=== PATIENT | male | born 1960 | race Caucasian/White ===

== ENCOUNTER 2020-11-19 09:26 | Outpatient (REF) | payer OTHER, SELFPAY ==
--- NOTE | ~2020-11-19 | XR_ITS ---
EXAMINATION: XR ABDOMEN KUB CLINICAL INDICATION: Constipation COMPARISON: None TECHNIQUE: AP view of the abdomen. FINDINGS: There is stool seen throughout the colon. There are no dilated loops of bowel to suggest obstruction. There is no evidence of free air. No calcifications are seen. Bony structures are unremarkable. XR/XR KUB IMPRESSION: Stool throughout the colon suggestive of mild constipation. No evidence of obstruction.
== END 2020-11-19 09:27 | disposition home or self-care (01) ==
LOC: HO.LAB 09:26
PROVIDERS: PCP Internal Medicine; Visit Provider Internal Medicine
DX: K59.03 Drug induced constipation (principal)
CPT/HCPCS: 74018

== ENCOUNTER → 2021-11-24 13:20 | Outpatient (BNVA) | payer OTHER, SELFPAY | PROVIDERS: PCP Internal Medicine; Referring Provider Internal Medicine; Visit Provider Nurse Practitioner Family | DX: Z13.89 Encounter for screening for other disorder (principal) ==

== ENCOUNTER → 2021-11-25 12:41 | Outpatient (BNVA) | payer OTHER, SELFPAY | PROVIDERS: PCP Internal Medicine; Referring Provider Internal Medicine; Visit Provider Nurse Practitioner Family | DX: R06.83 Snoring (principal); R40.0 Somnolence | CPT/HCPCS: 99202 ==

== ENCOUNTER → 2022-01-04 12:37 | Outpatient (REF) | payer OTHER, SELFPAY | LOC: HO.SL 12:37 | PROVIDERS: Visit Provider Nurse Practitioner Family | DX: R06.81 Apnea, not elsewhere classified (principal); R06.83 Snoring; R40.0 Somnolence | CPT/HCPCS: 95806 ==

== ENCOUNTER → 2022-01-28 08:17 | Outpatient (BNVA) | payer OTHER, SELFPAY | PROVIDERS: PCP Internal Medicine; Visit Provider Nurse Practitioner Family | DX: G47.33 Obstructive sleep apnea (adult) (pediatric) (principal); R40.0 Somnolence | CPT/HCPCS: 99212 ==

== ENCOUNTER → 2022-07-01 19:32 | Outpatient (REF) | payer OTHER, SELFPAY | LOC: HO.SL 19:32 | PROVIDERS: Visit Provider Nurse Practitioner Family | DX: G47.33 Obstructive sleep apnea (adult) (pediatric) (principal); Z79.899 Other long term (current) drug therapy | CPT/HCPCS: 95811 ==

== ENCOUNTER → 2022-08-18 07:56 | Outpatient (BNVA) | payer OTHER, SELFPAY | PROVIDERS: Visit Provider Nurse Practitioner Family | DX: G47.33 Obstructive sleep apnea (adult) (pediatric) (principal); R40.0 Somnolence | CPT/HCPCS: 99212 ==

== ENCOUNTER → 2022-12-13 07:40 | Outpatient (BNVA) | payer OTHER, SELFPAY | PROVIDERS: Visit Provider Nurse Practitioner Family | DX: G47.33 Obstructive sleep apnea (adult) (pediatric) (principal); R40.0 Somnolence | CPT/HCPCS: 99212 ==

== ENCOUNTER 2022-12-15 08:42 | Outpatient (REF) | payer OTHER, SELFPAY ==
--- NOTE | ~2022-12-15 | CT_ITS ---
EXAMINATION: CT ABDOMEN AND PELVIS WITH CONTRAST CLINICAL INFORMATION: Left lower quadrant abdominal pain. COMPARISON: None available. TECHNIQUE: Multidetector volumetric images were obtained from the superior aspect of the liver through the pubic symphysis following administration 85 mL of Omnipaque 350 intravenous contrast. Sagittal and coronal reformatted images were obtained on the technologist's workstation. Oral contrast: No This CT examination was performed using dose optimization techniques as appropriate, variously including the following: *Automated exposure control *Adjustment of mA and/or kV according to patient size (this includes techniques or standardized protocols for targeted exams where dose is matched to indication/reason for exam; i.e. extremities or head) *Use of iterative reconstruction technique DLP: 585 mGy-cm FINDINGS: LUNG BASES: Mild scarring is present at the lung bases along with a calcified right lower lobe granuloma. No consolidations, suspicious lung masses. The heart size is normal. LIVER, GALLBLADDER, AND BILIARY TREE: The liver is normal in size, shape, and attenuation. Multiple small benign-appearing hepatic cysts are present. No worrisome solid focal hepatic lesion or biliary ductal dilatation is present. The gallbladder is unremarkable with no evidence of radiopaque gallstones, gallbladder wall thickening, or obvious pericholecystic inflammatory changes. PANCREAS: There is fatty infiltration of the pancreas. No pancreatic masses, calcifications or ductal dilatation is seen. SPLEEN: Unremarkable. ADRENAL GLANDS: Unremarkable. KIDNEYS AND URETERS: The kidneys are normal in size, shape, and attenuation. There are benign bilateral Bosniak class I renal cysts present which need no additional imaging or follow-up. No hydronephrosis, hydroureter, or calculi seen. No perinephric stranding. BLADDER: Unremarkable. GASTROINTESTINAL TRACT: Thickening of the gastric fundus and body most likely secondary to underdistention The small and large bowel are unremarkable. The appendix is unremarkable. ABDOMINAL WALL: Small left-sided paraumbilical hernia seen containing predominantly fat with a tiny bit of wall of a single portion of the transverse colon. LYMPH NODES: No retroperitoneal lymphadenopathy. VASCULAR: Calcific plaque seen in the aorta and iliac vessels without aneurysm. PELVIC VISCERA: The prostate and seminal vesicles are unremarkable. No free pelvic fluid is seen. OSSEOUS STRUCTURES: Unremarkable. CT/CT abdomen pelvis w IV con IMPRESSION: 1. A cause for the patient's left lower quadrant pain has not been found. 2. Incidental note made of benign hepatic cysts, fatty infiltration of the pancreas, small left paraumbilical hernia and other findings described above. Fleischner guidelines were followed.
[2022-12-15] MEDS: Barium Sulfate Oral (Vanilla) 450 ML ORAL.SUSP 900 ML PO (12:39)
[2022-12-15] MEDS: iohexoL 350 MG/ML 100 ML INFUS..BTL IV (12:40)
[2022-12-15 14:42] LABS: Creatinine POC 0.6 mg/dL (0.5-1.4); GFR POC 60
== END 2022-12-15 08:43 | disposition home or self-care (01) ==
LOC: HO.CT 08:42
PROVIDERS: Visit Provider Registered Nurse
DX: Z98.890 Other specified postprocedural states (principal); Z87.19 Personal history of other diseases of the digestive system
CPT/HCPCS: 74177; 82565; Q9967

== ENCOUNTER → 2023-02-10 09:09 | Outpatient (BNVA) | payer OTHER, SELFPAY | PROVIDERS: PCP Registered Nurse; Visit Provider Surgery Vascular Surgery | DX: I83.11 Varicose veins of right lower extremity with inflammation (principal); G62.9 Polyneuropathy, unspecified | CPT/HCPCS: 99212 ==

== ENCOUNTER 2023-02-15 08:12 | Outpatient (REF) | payer OTHER, SELFPAY ==
--- NOTE | ~2023-02-15 | US_ITS ---
EXAMINATION: US LOWER EXTREMITY VENOUS (REFLUX EXAM), BILATERAL CLINICAL INDICATION: Chronic venous insufficiency with lower extremity varicose veins, pain and inflammation COMPARISON: None. TECHNIQUE: Color flow triplex imaging and compression Doppler was performed to evaluate both the deep and the superficial systems bilaterally. To evaluate the superficial system, the examination was performed in the upright position. Color-flow Doppler ultrasound and compression ultrasound were utilized. In addition, maneuvers were utilized to demonstrate reflux. FINDINGS: 1. DEEP VENOUS ULTRASOUND OF THE RIGHT LOWER EXTREMITY: Common Femoral Vein: Compressible, normal respiratory variation and augmented flow. Femoral Vein: Compressible, normal color flow and augmentation. Popliteal Vein: Compressible, normal augmentation. Deep Reflux: There is no evidence of reflux in the deep system in either the common femoral vein or the popliteal vein. There is no evidence of a Garner's cyst. 2. SUPERFICIAL ULTRASOUND WITH DOPPLER OF RIGHT LOWER EXTREMITY: GREAT SAPHENOUS VEIN: Saphenofemoral Junction: 1.0 cm; Reflux: 0 ms Proximal Thigh: 0.8 cm; Reflux: 0 ms Mid Thigh: 0.5 cm; Reflux: 0 ms Above Knee: 0.3 cm; Reflux: 0 ms At Knee: 0.2 cm; Reflux: 0 ms Below Knee: 0.3 cm; Reflux: 0 ms Mid Calf: 0.3 cm; Reflux: 0 ms Ankle: 0.2 cm; Reflux: 0 ms DUPLICATED MEDIAL GREAT SAPHENOUS VEIN: Diameter: None Imaged Reflux: NA DUPLICATED LATERAL GREAT SAPHENOUS VEIN: Diameter: 0.4 cm Reflux: None SMALL SAPHENOUS VEIN: Proximal: 0.3 cm; Reflux: 0 ms Distal: 0.3 cm; Reflux: 0 ms VEIN OF GIACOMINI: None Imaged. PERFORATORS: Location: Distal calf and midcalf Size: 0.3 cm Reflux: None VARICOSITIES: Location: Proximal thigh Size: 0.4 cm Reflux: None 3. DEEP VENOUS ULTRASOUND OF THE LEFT LOWER EXTREMITY: Common Femoral Vein: Compressible, normal respiratory variation and augmented flow. Femoral Vein: Compressible, normal color flow and augmentation. Popliteal Vein: Compressible, normal augmentation. Deep Reflux: There is no evidence of reflux in the deep system in either the common femoral vein or the popliteal vein. There is no evidence of a Garner's cyst. 4. SUPERFICIAL ULTRASOUND WITH DOPPLER OF LEFT LOWER EXTREMITY: GREAT SAPHENOUS VEIN: Saphenofemoral Junction: 0.6 cm; Reflux: 0 ms Proximal Thigh: 0.8 cm; Reflux: 0 ms Mid Thigh: 0.3 cm; Reflux: 0 ms Above Knee: 0.3 cm; Reflux: 0 ms At Knee: 0.3 cm; Reflux: 0 ms Below Knee: 0.2 cm; Reflux: 1016 ms Mid Calf: 0.2 cm; Reflux: 0 ms Ankle: 0.1 cm; Reflux: 0 ms DUPLICATED MEDIAL GREAT SAPHENOUS VEIN: Diameter: None Imaged Reflux: NA DUPLICATED LATERAL GREAT SAPHENOUS VEIN: Diameter: 0.3 cm Reflux: None SMALL SAPHENOUS VEIN: Proximal: 0.2 cm; Reflux: 0 ms Distal: 0.2 cm; Reflux: 0 ms VEIN OF GIACOMINI: None Imaged. PERFORATORS: Location: None significant Size: NA Reflux: NA VARICOSITIES: Location: Proximal thigh Size: 0.3 cm Reflux: None US/US venous duplex LE BI IMPRESSION: Right: No significant reflux in the great saphenous vein or small saphenous vein. Varicose vein in the proximal thigh without significant reflux Left: Single focal area of segmental reflux in the great saphenous vein in the proximal calf. No significant reflux in the remaining portions of the great saphenous vein. No significant reflux in the small saphenous vein. Focal varicosities seen in the proximal thigh without reflux
== END 2023-02-15 08:13 | disposition home or self-care (01) ==
LOC: HO.US 08:12
PROVIDERS: PCP Registered Nurse; Visit Provider Surgery Vascular Surgery
DX: I83.11 Varicose veins of right lower extremity with inflammation (principal)
CPT/HCPCS: 93970

== ENCOUNTER → 2023-02-16 08:39 | Outpatient (BNVA) | payer OTHER, SELFPAY | PROVIDERS: PCP Registered Nurse; Visit Provider Nurse Practitioner Family | DX: G47.33 Obstructive sleep apnea (adult) (pediatric) (principal); G47.31 Primary central sleep apnea; R40.0 Somnolence | CPT/HCPCS: 99212 ==

== ENCOUNTER → 2023-03-14 09:43 | Outpatient (BNVA) | payer OTHER, SELFPAY | PROVIDERS: PCP Registered Nurse; Visit Provider Internal Medicine | DX: J44.9 Chronic obstructive pulmonary disease, unspecified (principal); G47.33 Obstructive sleep apnea (adult) (pediatric); R06.09 Other forms of dyspnea | CPT/HCPCS: 99202 ==

== ENCOUNTER 2023-03-14 10:33 | Outpatient (REF) | payer OTHER, SELFPAY ==
--- NOTE | ~2023-03-14 | XR_ITS ---
EXAMINATION: XR CHEST CLINICAL INFORMATION: Dyspnea COMPARISON: Previous CT of the abdomen and pelvis December 2022 TECHNIQUE: 2 views of the chest were obtained. FINDINGS: The cardiac and mediastinal contours are normal. There is question of a 4 mm dense nodule at the right lung base. No corresponding abnormality is seen on lung windows from abdominal and pelvic CT December 2022. The lungs are otherwise clear. No x-ray evidence of interstitial lung disease. No pleural effusion or pneumothorax. Mild degenerative changes of the spine. XR/XR chest 2V IMPRESSION: Question 4 mm right base pulmonary nodule. Otherwise unremarkable exam.
== END 2023-03-14 10:34 | disposition home or self-care (01) ==
LOC: HO.XRAY 10:33
PROVIDERS: PCP Registered Nurse; Visit Provider Internal Medicine
DX: J44.9 Chronic obstructive pulmonary disease, unspecified (principal); R06.09 Other forms of dyspnea; G47.33 Obstructive sleep apnea (adult) (pediatric)
CPT/HCPCS: 71046

== ENCOUNTER → 2023-03-15 08:58 | Outpatient (BNVA) | payer OTHER, SELFPAY | PROVIDERS: PCP Registered Nurse; Visit Provider Surgery Vascular Surgery | DX: M79.89 Other specified soft tissue disorders (principal) | CPT/HCPCS: 99212 ==

== ENCOUNTER 2023-05-11 10:42 | Outpatient (AMB) | payer MEDICARE, SELFPAY ==
--- NOTE | 2023-05-11 10:45 | A.OFFVIS_ITS ---
Intake Vital Signs 05/11/23 10:47 Height 5 ft 8 in Weight 224 lb 13.944 oz BMI 34.2 BP 122/68 Blood Pressure Location Lt brachial Position Sitting Pulse 69 Pulse Source Pulse Oximeter Pulse Oximetry (%) 95 Oxygen Delivery Method Room Air Intake Visit Reasons: copd Sales Service Professional Required: No Allergies ibuprofen [IBUPROFEN] Allergy (Unknown, Verified 05/11/23 10:57) GI UPSET morphine [MORPHINE] Allergy (Unknown, Verified 05/11/23 10:57) NAUSEA & VOMITING tramadol [TRAMADOL] Allergy (Unknown, Verified 05/11/23 10:57) SEIZURES Medication List - Last Reconciled 05/11/23 by Christiano Velez MD albuterol sulfate 90 mcg/actuation 0 mcg inhalation allopurinol 300 mg PO DAILY amitriptyline 5 - 10 mg PO QPM PRN amoxicillin-pot clavulanate 875-125 mg 1 tab PO BID atorvastatin 40 mg PO BEDTIME fluticasone propion-salmeterol 250-50 mcg/dose (Wixela Inhub) 1 inh inhalation BID 30 days lisinopril-hydrochlorothiazide 10-12.5 mg 1 tab PO DAILY methimazole 5 mg PO DAILY umeclidinium 62.5 mcg/actuation (Incruse Ellipta) 1 inh inhalation QAM 30 days Ventolin HFA 90 mcg/actuation (albuterol sulfate) 2 puffs inhalation Q4-6H PRN 30 days NS verapamil ER 240 mg PO DAILY Do you need a note to return to daycare/school/sports/work: No HPI copd HPI Details THIS 62 YEARS OLD GENTLEMAN IS HERE FOR FOLLOW-UP. BREATHING PADGETT DOING VERY WELL AND HAS REMAINED STABLE. HE HAS ONLY OCCASIONAL COUGH, NO ATTACKS OF WHEEZING. GETS SHORT OF BREATH ON WALKING UP HILL OR CLIMBING STAIRS. HE DOES NOT WALK FAST BECAUSE OF HIS CHRONIC BACK PAIN. HE CLAIMS THAT THE CURRENT REGIMEN INCLUDING INCRUSE ELLIPTA, WIXELA, AND VENTOLIN RESCUE INHALER OR CONTROLLING HIS RESPIRATORY STATUS. , HE IS NONSMOKER , BUT TO WAIT UPSET MARIJUANA FOR RELIEF OF HIS BACK PAIN. [facility] Medical History COPD (chronic obstructive pulmonary disease) Dyspnea on exertion Surgical History H/O hernia repair Family History Mother No problems noted. Father Heart attack Social History Alcohol intake: current Alcohol intake frequency: holidays/special occasions only Patient Tobacco Use Status: Never used Tobacco Substance Use Type: Marijuana Review of Systems Const All systems reviewed & are unremarkable except as noted in HPI and below Eyes Reports no additional complaints ENT Reports no additional complaints Card Denies chest pain, Reports leg edema (Mild, on standing too long) and Reports dyspnea on exertion Resp Reports as per HPI and Reports dyspnea on exertion GI Reports no additional complaints Reports no additional complaints Musc Reports abnormal gait (He has mild unstable gait off and on and uses a walking stick ), Reports back pain, Reports radiating pain into limb and Reports stiffness Skin/Breast Reports system reviewed and no additional complaints, except as documented Neuro Reports abnormal gait (He has mild unstable gait off and on and uses a walking stick ) Psych Reports no additional complaints Endo Reports other (Thyroid dysfunction) Nate/Lymph Reports no additional complaints Aller/Immun Reports no additional complaints Physical Exam Vital Signs: Last Vital Signs Pulse 69 05/11/23 10:47 BP 122/68 05/11/23 10:47 Pulse Ox 95 05/11/23 10:47 Oxygen Delivery Method Room Air 05/11/23 10:47 BMI result Body Mass Index 34.2 Const General: healthy appearing (Except for being overweight), comfortable, no acute distress, alert and awake Orientation/consciousness: patient oriented x3 HEENT Head: Yes normal to inspection General nose exam: No nasal polyps present and No nasal discharge present Face and sinus: Yes sinuses nontender Mouth: oropharynx abnormals (Narrow and crowded, Mallampati class 3) Throat: Yes posterior oropharynx normal Eyes General: appearance normal, both eyes and all related structures Neck Neck: Yes normal visual inspection, Yes no lymphadenopathy, Yes trachea midline, Yes no JVD and Yes other (Neck circumference 17 in) Thyroid: Thyroid normal Chest Chest palpation & inspection: normal inspection of the chest, normal palpation of entire chest wall and no tenderness Resp Other: Percussion note is resonant, breath sounds are very distant with prolonged expiratory phase. No audible wheezes or crepitations. Cardio Palpation: normal PMI Rate: regular rate Rhythm: regular rhythm Heart sounds: no gallops and no murmurs GI Palpation (GI): Soft to palpation, nontender, No hepatosplenomegaly present and no masses Auscultation: normal bowel sounds Back/Spine/Pelvis Thoracic/Lumbar Spine: thoracic and lumbar spine normal to inspection and thoraco-lumbar ROM limited Skin General skin exam: no rashes or lesions noted Neuro General: patient oriented x3, No gait normal (Has mild impairment of the gait and uses a walking stick) and no focal motor deficits Cranial nerves: Yes CN's II-XII intact bilaterally Extrem General: Yes normal to inspection, Yes no clubbing, cyanosis or edema, Yes no calf tenderness and Yes edema (Chronic stasis edema currently controlled with elastic stockings) Psych Appearance: grossly normal and well kempt Speech and movement: Normal speech and movement present Assessment & Plan Assessment & Plan (1) COPD (chronic obstructive pulmonary disease): Comment: This gentleman has features of chronic obstructive pulmonary disease. He denies history. Of smoking cigarettes Is working in the [employer] business for adult life may have resulted , in some lung injury. Chest Xray , unremarkable except for 4 mm tiny nodule in right lower lobe.( in a nonsmoker it is not significant ) * he has had no pulmonary function test yet. [place] : Continue Incruse Ellipta 1 inhalation daily. Wixela 250-50 1 inhalation b.i.d.. Ventolin HFA 2 puffs Q 4-6 hours p.r.n.. * does not have to use the nebulizer. Scheduled for pulmonary function test. Code(s): J44.9 - Chronic obstructive pulmonary disease, unspecified (2) Dyspnea on exertion: Comment: Dyspnea on exertion is secondary to chronic obstructive pulmonary disease, and general deconditioning. He claims that since he is on the combination of Wixella and INCRUSE ELLIPTA the dyspnea on exertion is definitely much less. Code(s): R06.09 - Other forms of dyspnea (3) SANTOSH (obstructive sleep apnea): Comment: Severe degree of SANTOSH. The AHI was 52/hr, oxygen laura was 76% Has been started on CPAP therapy, he is being followed by sleep Medicine Services. I encouraged him to use CPAP regularly. And also encouraged him to lose weight. Code(s): G47.33 - Obstructive sleep apnea (adult) (pediatric) Coding Level of Care Code Est Pt Level 3 (46854) Diagnoses COPD (chronic obstructive pulmonary disease) J44.9 Dyspnea on exertion R06.09 SANTOSH (obstructive sleep apnea) G47.33
[2023-05-11 10:47] VITALS: BP 122/68; PULSE 69; O2SAT 95; BMI 34.2
== END 2023-05-11 11:08 | disposition home or self-care (01) ==
PROVIDERS: PCP Registered Nurse; Visit Provider Internal Medicine
DX: J44.9 Chronic obstructive pulmonary disease, unspecified (principal); R06.09 Other forms of dyspnea; G47.33 Obstructive sleep apnea (adult) (pediatric)
CPT/HCPCS: 99213

== ENCOUNTER → 2023-05-11 10:42 | Outpatient (BNVA) | payer MEDICARE, SELFPAY | PROVIDERS: PCP Registered Nurse; Visit Provider Internal Medicine | DX: J44.9 Chronic obstructive pulmonary disease, unspecified (principal); R06.09 Other forms of dyspnea; G47.33 Obstructive sleep apnea (adult) (pediatric) | CPT/HCPCS: 99212 ==

== ENCOUNTER 2023-09-05 10:05 | Outpatient (REF) | payer MEDICARE, SELFPAY ==
[2023-09-05 11:23] LABS: MANUAL DIFF FLAG NO
[2023-09-05 11:39] LABS: Basophils Absolute Auto 0.1 X10*3/uL (0.0-0.2); Basophils Percent Auto 0.6 % (0-2); Eosinophils Absolute Auto 0.4 X10*3/uL (0.0-0.4); Eosinophils Percent Auto 4.1 % (0-4); Hematocrit 38.6 % (42.0-52.0); Hemoglobin 12.9 g/dl (14.0-18.0); Imm Gran Abs Auto 0.04 X10*3/uL (0.00-0.03); Imm Gran Pct Auto 0.4 % (0.0-0.4); Lymphocytes Absolute Auto 2.1 X10*3/uL (1.2-4.9); Mean Corpuscular HGB Conc 33.4 g/dl (31.0-36.0); Mean Corpuscular Hemoglobin 31.5 pg (27.0-33.0); Mean Corpuscular Volume 94.1 fL (80.0-98.0); Mean Platelet Volume 9.8 fL (9.4-12.4); Monocytes Absolute Auto 1.1 X10*3/uL (0.1-1.2); Neutrophils Absolute Auto 5.7 x10*3/uL (2.0-8.3); Neutrophils Percent Auto 60.9 % (45-73); Platelet Count 327 X10*3/uL (160-400); Red Cell Distribution Width 14.5 % (11.0-16.0); White Blood Count 9.3 X10*3/uL (4.8-10.8)
[2023-09-05 12:03] LABS: C Reactive Protein 0.94 mg/dL (< or = 0.50)
[2023-09-05 12:11] LABS: TSH reflex Free T4 6.21 uIU/mL (0.32-4.0)
[2023-09-05 12:42] LABS: Erythrocyte Sedimentation Rate 14 MM/HR (0-15)
[2023-09-05 12:51] LABS: Free T4 (Free Thyroxine) 0.87 ng/dL (0.71-1.85)
[2023-09-06 21:43] LABS: Prot Elec - Albumin 4.2 g/dL (3.8-4.8); Prot Elec - Alpha1 0.3 g/dL (0.2-0.3); Prot Elec - Alpha2 0.6 g/dL (0.5-0.9); Prot Elec - Beta 1 0.5 g/dL (0.4-0.6); Prot Elec - Beta 2 0.4 g/dL (0.2-0.5); Prot Elec - Gamma 1.5 g/dL (0.8-1.7); Prot Elec - Total Protein 7.5 g/dL (6.1-8.1)
[2023-09-07 09:33] LABS: Anti Nuclear Antibody Screen NEGATIVE (NEGATIVE)
== END 2023-09-05 10:06 | disposition home or self-care (01) ==
LOC: HO.HHCL 10:05
PROVIDERS: Visit Provider Registered Nurse
DX: G62.9 Polyneuropathy, unspecified (principal)
CPT/HCPCS: 36415; 84165; 84439; 84443; 85025; 85652; 86038; 86140

== ENCOUNTER 2023-09-21 10:37 | Outpatient (REF) | payer MEDICARE, SELFPAY ==
--- NOTE | ~2023-09-21 | XR_ITS ---
EXAMINATION: XR FOOT, BILATERAL CLINICAL INFORMATION: Bilateral foot pain. Hammertoe ulcer 2nd digit. COMPARISON: Right foot radiographs 03/27/2020. TECHNIQUE: 3 views of each foot. 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 Possible shallow ulcer dorsal to the 2nd PIP joint with no underlying cortical erosion. No acute osseous abnormality. Left Foot: Hallux valgus with moderate 1st MTP joint and hallux sesamoid osteoarthritis. No acute osseous abnormality. XR/XR foot RT min 3V IMPRESSION: RIGHT FOOT: Possible shallow ulcer dorsal to the 2nd PIP joint. No evidence of osteomyelitis. 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 LEFT FOOT: Hallux valgus with moderate 1st MTP joint and hallux sesamoid osteoarthritis.
--- NOTE | ~2023-09-21 | XR_ITS ---
EXAMINATION: XR FOOT, BILATERAL CLINICAL INFORMATION: Bilateral foot pain. Hammertoe ulcer 2nd digit. COMPARISON: Right foot radiographs 03/27/2020. TECHNIQUE: 3 views of each foot. 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 Possible shallow ulcer dorsal to the 2nd PIP joint with no underlying cortical erosion. No acute osseous abnormality. Left Foot: Hallux valgus with moderate 1st MTP joint and hallux sesamoid osteoarthritis. No acute osseous abnormality. XR/XR foot LT min 3V IMPRESSION: RIGHT FOOT: Possible shallow ulcer dorsal to the 2nd PIP joint. No evidence of osteomyelitis. 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 LEFT FOOT: Hallux valgus with moderate 1st MTP joint and hallux sesamoid osteoarthritis.
== END 2023-09-21 10:38 | disposition home or self-care (01) ==
LOC: HO.HHCX 10:37
PROVIDERS: Visit Provider Registered Nurse
DX: G62.9 Polyneuropathy, unspecified (principal); M20.41 Other hammer toe(s) (acquired), right foot; M20.42 Other hammer toe(s) (acquired), left foot
CPT/HCPCS: 73630

== ENCOUNTER 2023-09-26 10:05 | Outpatient (AMB) | payer MEDICARE, SELFPAY ==
[2023-09-26 10:13] VITALS: BP 110/70; PULSE 76; O2SAT 96; BMI 33.4
--- NOTE | 2023-09-26 10:13 | MHC.OFFVIS ---
Intake Vital Signs 09/26/23 10:13 Height 5 ft 8 in Weight 220 lb BMI 33.4 BP 110/70 Blood Pressure Location Lt brachial Position Sitting Pulse 76 Pulse Source Pulse Oximeter Pulse Oximetry (%) 96 Oxygen Delivery Method Room Air Intake Visit Reasons: copd Intake Note: pt is here for follow up and states he gave back the cpap, and states he does not sleep well, Family Services Coordinator Required: No Allergies ibuprofen [IBUPROFEN] Allergy (Unknown, Verified 09/26/23 10:43) GI UPSET morphine [MORPHINE] Allergy (Unknown, Verified 09/26/23 10:43) NAUSEA & VOMITING tramadol [TRAMADOL] Allergy (Unknown, Verified 09/26/23 10:43) SEIZURES Medication List - Last Reconciled 09/26/23 by Christiano Velez MD albuterol sulfate mg inhalation Q4H PRN alpha lipoic acid 600 mg PO DAILY atorvastatin 40 mg PO BEDTIME fluticasone propion-salmeterol 250-50 mcg/dose (Advair Diskus) 1 ea inhalation BID fluticasone propionate 50 mcg/actuation sprays intranasal lisinopril-hydrochlorothiazide 10-12.5 mg 1 tab PO DAILY methimazole 5 mg PO DAILY umeclidinium 62.5 mcg/actuation (Incruse Ellipta) 1 inh inhalation QAM Ventolin HFA 90 mcg/actuation (albuterol sulfate) 2 puffs inhalation Q4-6H PRN NS verapamil ER 240 mg PO DAILY HPI copd HPI Details 63 YEARS OLD GENTLEMAN, MODERATELY OBESE,, HAS MODERATE DEGREE OF COPD, WHICH IS WELL CONTROLLED WITH THE CURRENT INHALERS. HE HAS ONLY MILD INTERMITTENT COUGH, . DENIES ANY WHEEZING ATTACKS SHORTNESS OF BREATH ON EXERTION IS ONLY MILD, BECAUSE HE DOES NOT WALK FAST, OR CLIMB STAIRS. HE HAS OBSTRUCTIVE SLEEP APNEA WHICH WAS QUITE SEVERE AND HE REQUIRED TO CPAP TITRATION IN THE SLEEP LAB. HE WAS STARTED ON A BIPAP, PER RESULTS OF THE CPAP TITRATION. HE TRIED FOR HIS SHORT. AND THEN GAVE THE BIPAP DEVICE BACK TO THE DME SUPPLIER HE WAS BEING FOLLOWED BY THE SLEEP MEDICINE SERVICES. HE CLAIMS THAT HE JUST CANNOT HAVE THE MASK ON HIS FACE, HE FEELS THE PRESSURE IS TOO MUCH. NOW WITHOUT THE MASK HE IS SLEEPING , 2 HOURS AT A TIME, BUT DOES SLEEP ABOUT 6 HOURS, IN INTERRUPTED SEGMENTS. HE DENIES DAYTIME SLEEPINESS. THIS GENTLEMAN HAS REGRESSION OF THE LOWER JAW, HAS A PERMANENT DEFECT WHICH SEEMS TO BE THE MAIN CAUSE OF HIS SLEEP APNEA . [facility] Medical History Dyspnea on exertion COPD (chronic obstructive pulmonary disease) Surgical History H/O hernia repair Family History Mother No problems noted. Father Heart attack Social History Alcohol intake: current Alcohol intake frequency: holidays/special occasions only Patient Tobacco Use Status: Never used Tobacco Substance Use Type: Marijuana Review of Systems Const All systems reviewed & are unremarkable except as noted in HPI and below Eyes Reports no additional complaints ENT Reports no additional complaints Card Denies chest pain, Reports leg edema (Mild, on standing too long) and Reports dyspnea on exertion Resp Reports as per HPI and Reports dyspnea on exertion GI Reports no additional complaints Reports no additional complaints Musc Reports abnormal gait (He has mild unstable gait off and on and uses a walking stick ), Reports back pain, Reports radiating pain into limb and Reports stiffness Skin/Breast Reports system reviewed and no additional complaints, except as documented Neuro Reports abnormal gait (He has mild unstable gait off and on and uses a walking stick ) Psych Reports no additional complaints Endo Reports other (Thyroid dysfunction) Nate/Lymph Reports no additional complaints Aller/Immun Reports no additional complaints Physical Exam Vital Signs: Last Vital Signs Pulse 76 09/26/23 10:13 BP 110/70 09/26/23 10:13 Pulse Ox 96 09/26/23 10:13 Oxygen Delivery Method Room Air 09/26/23 10:13 BMI result Body Mass Index 33.4 Const General: healthy appearing (Except for being overweight), comfortable, no acute distress, alert and awake Orientation/consciousness: patient oriented x3 HEENT Head: Yes normal to inspection General nose exam: No nasal polyps present and No nasal discharge present Face and sinus: Yes sinuses nontender Mouth: oropharynx abnormals (Narrow and crowded, Mallampati class 3) Teeth and gingiva: other (RETROGANTHIA OF THE LOWER JAW.) Throat: Yes posterior oropharynx normal Eyes General: appearance normal, both eyes and all related structures Neck Neck: Yes normal visual inspection, Yes no lymphadenopathy, Yes trachea midline, Yes no JVD and Yes other (Neck circumference 17 in) Thyroid: Thyroid normal Chest Chest palpation & inspection: normal inspection of the chest, normal palpation of entire chest wall and no tenderness Resp Other: Percussion note is resonant, breath sounds are very distant with prolonged expiratory phase. No audible wheezes or crepitations. Cardio Palpation: normal PMI Rate: regular rate Rhythm: regular rhythm Heart sounds: no gallops and no murmurs GI Palpation (GI): Soft to palpation, nontender, No hepatosplenomegaly present and no masses Auscultation: normal bowel sounds Back/Spine/Pelvis Thoracic/Lumbar Spine: thoracic and lumbar spine normal to inspection and thoraco-lumbar ROM limited Skin General skin exam: no rashes or lesions noted Neuro General: patient oriented x3, No gait normal (Has mild impairment of the gait and uses a walking stick) and no focal motor deficits Cranial nerves: Yes CN's II-XII intact bilaterally Extrem General: Yes normal to inspection, Yes no clubbing, cyanosis or edema, Yes no calf tenderness and Yes edema (Chronic stasis edema currently controlled with elastic stockings) Psych Appearance: grossly normal and well kempt Speech and movement: Normal speech and movement present Assessment & Plan Assessment & Plan (1) COPD (chronic obstructive pulmonary disease): Comment: This gentleman has features of chronic obstructive pulmonary disease. He denies history of smoking cigarettes. He smokes marijuana 2 to 3 times a day. Code(s): J44.9 - Chronic obstructive pulmonary disease, unspecified Plan: [place] : Continue Incruse Ellipta 1 inhalation daily. Advair diskus 250-50 1 inhalation b.i.d.. Ventolin HFA 2 puffs Q 4-6 hours p.r.n.. * does not have to use the nebulizer. (2) Dyspnea on exertion: Comment: Dyspnea on exertion is secondary to chronic obstructive pulmonary disease, and general deconditioning. He claims that since he is on the combination of Advair and INCRUSE ELLIPTA the dyspnea on exertion is definitely much less. Code(s): R06.09 - Other forms of dyspnea Plan: Continue the present regimen. (3) SANTOSH (obstructive sleep apnea): Comment: Severe degree of SANTOSH. The AHI was 52/hr, oxygen laura was 76% Had been started on BIPAP therapy, and was being followed by sleep Medicine Services. Today he tells me that he could not use BiPAP and returned the device. He claims that he is sleeping fairly well, though only eat a few hours at a time. Code(s): G47.33 - Obstructive sleep apnea (adult) (pediatric) Plan Discussed with him in detail that he does need to use BiPAP but he is absolutely declining to consider this therapy. I asked about other modalities. I told him that weight reduction would be the best option. .Should sleep always in lateral position He is not candidate for any surgical intervention, and I do not think he is candidate for INSPIRE Orders: Orders Venous Blood Gas Today G47.33 - Obstructive sleep apnea (adult) (pediatric), J44.9 - Chronic obstructive pulmonary disease, unspecified Coding Level of Care Code Est Pt Level 4 (91547) Diagnoses COPD (chronic obstructive pulmonary disease) J44.9 Dyspnea on exertion R06.09 SANTOSH (obstructive sleep apnea) G47.33
== END 2023-09-26 10:46 | disposition home or self-care (01) ==
PROVIDERS: PCP Registered Nurse; Visit Provider Internal Medicine
DX: J44.9 Chronic obstructive pulmonary disease, unspecified (principal); R06.09 Other forms of dyspnea; G47.33 Obstructive sleep apnea (adult) (pediatric)
CPT/HCPCS: 99214

== ENCOUNTER 2023-09-26 10:05 | Outpatient (REF) | payer MEDICARE, SELFPAY ==
[2023-09-26 11:09] LABS: Venous Blood Gas Refer to POC result
[2023-09-26 11:45] LABS: VBG Base Excess 8.1 mmol/L; VBG HCO3 34 mmol/L (22-26); VBG pCO2 53 mmHg; VBG pH 7.41 (7.32-7.43); VBG pO2 34 mmHg
== END 2023-09-26 10:06 | disposition home or self-care (01) ==
LOC: HO.LAB 10:05
PROVIDERS: PCP Registered Nurse; Visit Provider Internal Medicine
DX: J44.9 Chronic obstructive pulmonary disease, unspecified (principal); R06.09 Other forms of dyspnea; G47.33 Obstructive sleep apnea (adult) (pediatric); M27.8 Other specified diseases of jaws
CPT/HCPCS: 36415; 82803; 99212

== ENCOUNTER 2024-01-30 12:51 | Outpatient (AMB) | payer MEDICARE, SELFPAY ==
[2024-01-30 13:28] VITALS: BP 102/64; PULSE 81; O2SAT 96; BMI 25.6
--- NOTE | 2024-01-30 13:28 | MHC.OFFVIS ---
Vital Signs 01/30/24 13:28 Height 5 ft 8 in Weight 168 lb 10.458 oz BMI 25.6 BP 102/64 Blood Pressure Location Lt brachial Position Sitting Pulse 81 Pulse Source Pulse Oximeter Pulse Oximetry (%) 96 Oxygen Delivery Method Room Air Intake Visit Reasons: COPD Intake Note: pt is here for follow up and states he states not bad, inhalers doing the job. Operations General Agent Required: No Allergies ibuprofen [IBUPROFEN] Allergy (Unknown, Verified 01/30/24 13:44) GI UPSET morphine [MORPHINE] Allergy (Unknown, Verified 01/30/24 13:44) NAUSEA & VOMITING tramadol [TRAMADOL] Allergy (Unknown, Verified 01/30/24 13:44) SEIZURES Medication List - Last Reconciled 01/30/24 by Chirstiano Velez MD albuterol sulfate mg inhalation Q4H PRN allopurinol 300 mg PO DAILY alpha lipoic acid 600 mg PO DAILY atorvastatin 40 mg PO BEDTIME fluticasone propion-salmeterol 250-50 mcg/dose (Advair Diskus) 1 ea inhalation BID fluticasone propionate 50 mcg/actuation sprays intranasal lisinopril-hydrochlorothiazide 10-12.5 mg 1 tab PO DAILY methimazole 5 mg PO DAILY umeclidinium 62.5 mcg/actuation (Incruse Ellipta) 1 inh inhalation QAM Ventolin HFA 90 mcg/actuation (albuterol sulfate) 2 puffs inhalation Q4-6H PRN NS verapamil ER 240 mg PO DAILY Do you need a note to return to daycare/school/sports/work: No HPI HPI COPD: Details: 63 YEARS OLD GENTLEMAN, COMING FOR ROUTINE FOLLOW-UP HE IS A CASE OF OBSTRUCTIVE SLEEP APNEA BUT COULD NOT USE THE CPAP WHICH HE RETURNED. CLAIMS THAT HE DOES SLEEP OKAY LONG HE KEEPS HIS MOUTH OPEN. HE GETS ABOUT 4-5 HOURS OF SLEEP AT NIGHT. DENIES ANY DAYTIME SLEEPINESS. .WEIGHT IS HOLDING JUST THE SAME BREATHING IS VERY STABLE WITH THE CURRENT MEDICAL REGIMEN . HE HARDLY NEEDS TO USE EMERGENCY INHALER. HE HAS HAD NO RECENT INFECTION. HE SMOKES 1 JOINT OF MARIJUANA DAILY BUT DOES NOT SMOKE ANY CIGARETTES PFSH Medical History Dyspnea on exertion COPD (chronic obstructive pulmonary disease) Surgical History H/O hernia repair Family History Mother No problems noted. Father Heart attack Social History Alcohol intake: current Alcohol intake frequency: holidays/special occasions only Patient Tobacco Use Status: Never used Tobacco Substance Use Type: Marijuana Review of Systems Const All systems reviewed & are unremarkable except as noted in HPI and below Eyes Reports no additional complaints ENT Reports no additional complaints Card Denies chest pain, Reports leg edema (Mild, on standing too long) and Reports dyspnea on exertion Resp Reports as per HPI and Reports dyspnea on exertion GI Reports no additional complaints Reports no additional complaints Musc Reports abnormal gait (He has mild unstable gait off and on and uses a walking stick ), Reports back pain, Reports radiating pain into limb and Reports stiffness Skin/Breast Reports system reviewed and no additional complaints, except as documented Neuro Reports abnormal gait (He has mild unstable gait off and on and uses a walking stick ) Psych Reports no additional complaints Endo Reports other (Thyroid dysfunction) Nate/Lymph Reports no additional complaints Aller/Immun Reports no additional complaints Physical Exam Vital Signs: Last Vital Signs Pulse 81 01/30/24 13:28 BP 102/64 01/30/24 13:28 Pulse Ox 96 01/30/24 13:28 Oxygen Delivery Method Room Air 01/30/24 13:28 BMI result Body Mass Index 25.6 Const General: healthy appearing (Except for being overweight), comfortable, no acute distress, alert and awake Orientation/consciousness: patient oriented x3 HEENT Head: Yes normal to inspection General nose exam: No nasal polyps present and No nasal discharge present Face and sinus: Yes sinuses nontender Mouth: oropharynx abnormals (Narrow and crowded, Mallampati class 3) Teeth and gingiva: other (RETROGANTHIA OF THE LOWER JAW.) Throat: Yes posterior oropharynx normal Eyes General: appearance normal, both eyes and all related structures Neck Neck: Yes normal visual inspection, Yes no lymphadenopathy, Yes trachea midline, Yes no JVD and Yes other (Neck circumference 17 in) Thyroid: Thyroid normal Chest Chest palpation & inspection: normal inspection of the chest, normal palpation of entire chest wall and no tenderness Resp Other: Percussion note is resonant, breath sounds are very distant with prolonged expiratory phase. No audible wheezes or crepitations. Cardio Palpation: normal PMI Rate: regular rate Rhythm: regular rhythm Heart sounds: no gallops and no murmurs GI Palpation (GI): Soft to palpation, nontender, No hepatosplenomegaly present and no masses Auscultation: normal bowel sounds Back/Spine/Pelvis Thoracic/Lumbar Spine: thoracic and lumbar spine normal to inspection and thoraco-lumbar ROM limited Skin General skin exam: no rashes or lesions noted Neuro General: patient oriented x3, No gait normal (Has mild impairment of the gait and uses a walking stick) and no focal motor deficits Cranial nerves: Yes CN's II-XII intact bilaterally Extrem General: Yes normal to inspection, Yes no clubbing, cyanosis or edema, Yes no calf tenderness and Yes edema (Chronic stasis edema currently controlled with elastic stockings) Psych Appearance: grossly normal and well kempt Speech and movement: Normal speech and movement present Assessment & Plan Assessment & Plan (1) COPD (chronic obstructive pulmonary disease): Comment: This gentleman has features of chronic obstructive pulmonary disease. He denies history of smoking cigarettes. He smokes marijuana 1-2 times a day. Code(s): J44.9 - Chronic obstructive pulmonary disease, unspecified Category: Medical Plan: CONTINUE: ADVAIR 250-51 INHALATION B.I.D.. INCRUSE ELLIPTA. 1 INHALATION DAILY ALBUTEROL HFA 2 PUFFS Q 4-6 HOURS P.R.N. (2) SANTOSH (obstructive sleep apnea): Comment: Severe degree of SANTOSH. The AHI was 52/hr, oxygen laura was 76% Had been started on BIPAP therapy, and was being followed by sleep Medicine Services. Today he tells me that he could not use BiPAP and returned the device. He claims that he is sleeping fairly well, though he sleeps only 3-4 hrs a t night . Code(s): G47.33 - Obstructive sleep apnea (adult) (pediatric) Category: Medical Plan: He was noncompliant and gave back the BiPAP device Medications: Refilled umeclidinium 62.5 mcg/actuation (Incruse Ellipta) 1 inh inhalation QAM 30 ea 4RF copd fluticasone propion-salmeterol 250-50 mcg/dose (Advair Diskus) 1 ea inhalation BID 60 ea 4RF copd
== END 2024-01-30 13:49 | disposition home or self-care (01) ==
LOC: HO.HPS 12:56
PROVIDERS: PCP Registered Nurse; Visit Provider Internal Medicine
DX: J44.9 Chronic obstructive pulmonary disease, unspecified (principal); G47.33 Obstructive sleep apnea (adult) (pediatric)
CPT/HCPCS: 99213

== ENCOUNTER → 2024-01-30 12:56 | Outpatient (BNVA) | payer MEDICARE, SELFPAY | PROVIDERS: PCP Registered Nurse; Visit Provider Internal Medicine | DX: J44.9 Chronic obstructive pulmonary disease, unspecified (principal); G47.33 Obstructive sleep apnea (adult) (pediatric) | CPT/HCPCS: 99212 ==

== ENCOUNTER 2024-05-14 09:21 | Outpatient (AMB) | payer MEDICARE, SELFPAY ==
[2024-05-14 09:39] VITALS: BP 102/70; PULSE 61; O2SAT 96; BMI 32.2
--- NOTE | 2024-05-14 09:39 | MHC.OFFVIS ---
Vital Signs 05/14/24 09:39 Height 5 ft 8 in Weight 211 lb 10.3 oz BMI 32.2 BP 102/70 Blood Pressure Location Lt brachial Position Sitting Pulse 61 Pulse Source Pulse Oximeter Pulse Oximetry (%) 96 Oxygen Delivery Method Room Air Intake Visit Reasons: COPD Intake Note: pt is here for follow up and states his breathing is good, and incruse and advair. 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 Allergies ibuprofen [IBUPROFEN] Allergy (Unknown, Verified 05/14/24 10:02) GI UPSET morphine [MORPHINE] Allergy (Unknown, Verified 05/14/24 10:02) NAUSEA & VOMITING tramadol [TRAMADOL] Allergy (Unknown, Verified 05/14/24 10:02) SEIZURES Medication List - Last Reconciled 05/14/24 by Christiano Velez MD albuterol sulfate mg inhalation Q4H PRN allopurinol 300 mg PO DAILY alpha lipoic acid 600 mg PO DAILY atorvastatin 40 mg PO BEDTIME fluticasone propion-salmeterol 250-50 mcg/dose (Advair Diskus) 1 ea inhalation BID fluticasone propionate 50 mcg/actuation sprays intranasal lisinopril-hydrochlorothiazide 10-12.5 mg 1 tab PO DAILY methimazole 5 mg PO DAILY umeclidinium 62.5 mcg/actuation (Incruse Ellipta) 1 inh inhalation QAM Ventolin HFA 90 mcg/actuation (albuterol sulfate) 2 puffs inhalation Q4-6H PRN NS verapamil ER 240 mg PO DAILY Do you need a note to return to daycare/school/sports/work: No HPI HPI COPD: Details: 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 CLAIMS TO BE DOING WELL AND EXCEPT FOR MINIMAL SHORTNESS OF BREATH ON WALKING AROUND. HE HAS NO EPISODES OF WHEEZING OR SUSTAINED COUGH. HE HAS HAD NO ACUTE RESPIRATORY INFECTION. SHERYL DOES NOT SMOKE CIGARETTES. HE DOES SMOKE MARIJUANA ABOUT 3 TIMES A DAY, IT KEEPS HIM SOMEWHAT CALM. [facility] Medical History Dyspnea on exertion COPD (chronic obstructive pulmonary disease) Surgical History H/O hernia repair Family History Mother No problems noted. Father Heart attack Social History Alcohol intake: current Alcohol intake frequency: holidays/special occasions only Patient Tobacco Use Status: Never used Tobacco Substance Use Type: Marijuana Review of Systems Const All systems reviewed & are unremarkable except as noted in HPI and below Eyes Reports no additional complaints ENT Reports no additional complaints Card Denies chest pain, Reports leg edema (Mild, on standing too long) and Reports dyspnea on exertion Resp Reports as per HPI and Reports dyspnea on exertion GI Reports no additional complaints Reports no additional complaints Musc Reports abnormal gait (He has mild unstable gait off and on and uses a walking stick ), Reports back pain, Reports radiating pain into limb and Reports stiffness Skin/Breast Reports system reviewed and no additional complaints, except as documented Neuro Reports abnormal gait (He has mild unstable gait off and on and uses a walking stick ) Psych Reports no additional complaints Endo Reports other (Thyroid dysfunction) Nate/Lymph Reports no additional complaints Aller/Immun Reports no additional complaints Physical Exam Vital Signs: Last Vital Signs Pulse 61 05/14/24 09:39 BP 102/70 05/14/24 09:39 Pulse Ox 96 05/14/24 09:39 Oxygen Delivery Method Room Air 05/14/24 09:39 BMI result Body Mass Index 32.2 Const General: healthy appearing (Except for being overweight), comfortable, no acute distress, alert and awake Orientation/consciousness: patient oriented x3 HEENT Head: Yes normal to inspection General nose exam: No nasal polyps present and No nasal discharge present Face and sinus: Yes sinuses nontender Mouth: oropharynx abnormals (Narrow and crowded, Mallampati class 3) Teeth and gingiva: other (RETROGANTHIA OF THE LOWER JAW.) Throat: Yes posterior oropharynx normal Eyes General: appearance normal, both eyes and all related structures Neck Neck: Yes normal visual inspection, Yes no lymphadenopathy, Yes trachea midline, Yes no JVD and Yes other (Neck circumference 17 in) Thyroid: Thyroid normal Chest Chest palpation & inspection: normal inspection of the chest, normal palpation of entire chest wall and no tenderness Resp Other: Percussion note is resonant, breath sounds are very distant with prolonged expiratory phase. No audible wheezes or crepitations. Cardio Palpation: normal PMI Rate: regular rate Rhythm: regular rhythm Heart sounds: no gallops and no murmurs GI Palpation (GI): Soft to palpation, nontender, No hepatosplenomegaly present and no masses Auscultation: normal bowel sounds Back/Spine/Pelvis Thoracic/Lumbar Spine: thoracic and lumbar spine normal to inspection and thoraco-lumbar ROM limited Skin General skin exam: no rashes or lesions noted Neuro General: patient oriented x3, No gait normal (Has mild impairment of the gait and uses a walking stick) and no focal motor deficits Cranial nerves: Yes CN's II-XII intact bilaterally Extrem General: Yes normal to inspection, Yes no clubbing, cyanosis or edema, Yes no calf tenderness and Yes edema (Chronic stasis edema currently controlled with elastic stockings) Psych Appearance: grossly normal and well kempt Speech and movement: Normal speech and movement present Office Procedures Spirometry Testing Spirometry Comments: Spirometry done in the office, Dr. Velez has the results reults scanned to his chart. 32112- Spirometry Results Reviewed Results Reviewed: SPIROMETRY Assessment & Plan Assessment & Plan (1) COPD (chronic obstructive pulmonary disease): Comment: This gentleman has features of chronic obstructive pulmonary disease. He denies history of smoking cigarettes. He smokes marijuana about 3 times a day. Code(s): J44.9 - Chronic obstructive pulmonary disease, unspecified Category: Medical Plan: Continue Wixela 250-51 inhalation b.i.d. Incruse Ellipta 1 inhalation daily Albuterol HFA 2 puffs Q 6 hours p.r.n. (2) Dyspnea on exertion: Comment: Dyspnea on exertion is secondary to chronic obstructive pulmonary disease, and general deconditioning. He claims that since he is on the combination of Advair and INCRUSE ELLIPTA the dyspnea on exertion is definitely much less. Code(s): R06.09 - Other forms of dyspnea Category: Medical Plan: Advised to continue using the . Meds as prescribed Continue to do deep breathing exercises. (3) SANTOSH (obstructive sleep apnea): Comment: Severe degree of SANTOSH. The AHI was 52/hr, oxygen laura was 76% Had been started on BIPAP therapy, and was being followed by sleep Medicine Services. Today he tells me that he could not use BiPAP and returned the device. He claims that he is sleeping fairly well, though he sleeps only 3-4 hrs a t night . Code(s): G47.33 - Obstructive sleep apnea (adult) (pediatric) Category: Medical Plan: as above Coding Level of Care Code Est Pt Level 3 (07586) Diagnoses COPD (chronic obstructive pulmonary disease) J44.9 Dyspnea on exertion R06.09 SANTOSH (obstructive sleep apnea) G47.33 CPT Codes Spirometry - CPT: 10917- Spirometry ([id number])
== END 2024-05-14 10:14 | disposition home or self-care (01) ==
PROVIDERS: PCP Registered Nurse; Visit Provider Internal Medicine
DX: J44.9 Chronic obstructive pulmonary disease, unspecified (principal); R06.09 Other forms of dyspnea; G47.33 Obstructive sleep apnea (adult) (pediatric)
CPT/HCPCS: 94010; 99213

== ENCOUNTER → 2024-05-14 09:21 | Outpatient (BNVA) | payer MEDICARE, SELFPAY | PROVIDERS: PCP Registered Nurse; Visit Provider Internal Medicine | DX: J44.9 Chronic obstructive pulmonary disease, unspecified (principal); G47.33 Obstructive sleep apnea (adult) (pediatric); R06.09 Other forms of dyspnea | CPT/HCPCS: 94010; 99212 ==

== ENCOUNTER 2024-05-18 08:51 | Outpatient (AMB) | payer MEDICARE, SELFPAY ==
[2024-05-18 08:56] VITALS: BMI 32.1
--- NOTE | 2024-05-18 08:56 | MHC.OFFVIS ---
Vital Signs 05/18/24 08:56 Height 5 ft 8 in Weight 211 lb BMI 32.1 Intake Visit Reasons: RT clavicle fx, DOI 03/30/24 Intake Note: Victor Manuel a 63 year old right hand dominant male who presents today for an evaluation of right clavicle fracture, DOI 03/30/24. Patient reports that he turned to pet his dog near the cellar stairs and the next thing he knows is waking up at the bottom of the stairs in pain. He presented to [facility] ER by ambulance where xrays were taken and placed in a sling. He followed up with his PCP and was referred to orthopedics. He continues to have soreness in a clavicle as well as a visible lump. Denies numbness or tingling. Allergies ibuprofen [IBUPROFEN] Allergy (Unknown, Verified 05/18/24 09:09) GI UPSET morphine [MORPHINE] Allergy (Unknown, Verified 05/18/24 09:09) NAUSEA & VOMITING tramadol [TRAMADOL] Allergy (Unknown, Verified 05/18/24 09:09) SEIZURES Medication List - Last Reconciled 05/18/24 by Tree Cartwright PA-C albuterol sulfate mg inhalation Q4H PRN allopurinol 300 mg PO DAILY alpha lipoic acid 600 mg PO DAILY atorvastatin 40 mg PO BEDTIME fluticasone propion-salmeterol 250-50 mcg/dose (Advair Diskus) 1 ea inhalation BID fluticasone propionate 50 mcg/actuation sprays intranasal lisinopril-hydrochlorothiazide 10-12.5 mg 1 tab PO DAILY methimazole 5 mg PO DAILY umeclidinium 62.5 mcg/actuation (Incruse Ellipta) 1 inh inhalation QAM Ventolin HFA 90 mcg/actuation (albuterol sulfate) 2 puffs inhalation Q4-6H PRN NS verapamil ER 240 mg PO DAILY HPI HPI RT clavicle fx, DOI 03/30/24: Details: 63-year-old right hand dominant male who presents to the office today for an evaluation of right clavicle fracture, 03/30/24. He reports he turned to his pet dog near the cellar stairs and the next thing he knows is waking up at the bottom of the stairs in pain. He was seen at [facility] ER by ambulance where x-rays were performed and he was placed in a sling. He also followed up with his PCP who referred him to our office. He currently states he has soreness in his clavicle as well as a visible lump. He also reports swelling and limited ROM in his right 5th finger. He denies any numbness or tingling. He finds no relief with Tylenol. [facility] Medical History Dyspnea on exertion COPD (chronic obstructive pulmonary disease) Surgical History H/O hernia repair Family History Mother No problems noted. Father Heart attack Social History (Updated 05/18/24 @ 09:03 by MARY GRACE [place]) Alcohol intake: current Alcohol intake frequency: holidays/special occasions only Patient Tobacco Use Status: Never used Tobacco Substance Use Type: Marijuana Current occupational status: retired and disabled Current occupation: right hand dominant Review of Systems Const All systems reviewed & are unremarkable except as noted in HPI and below Physical Exam Vital Signs: BMI result Body Mass Index 32.1 Const General: cooperative, healthy appearing, comfortable, no acute distress, well developed and alert Orientation/consciousness: patient oriented x3 HEENT Head: Yes normal to inspection, Yes normocephalic and Yes atraumatic Eyes General: appearance normal, both eyes and all related structures Resp Effort & Inspection: normal respiratory effort and able to speak in complete sentences Cardio Rate: regular rate Peripheral pulses: Peripheral pulses 2+ throughout GI Palpation (GI): Soft to palpation Skin Lesions: no lesions Rashes: no rashes Neuro General: patient oriented x3 Extrem Other: Right clavicle: Normal to inspection. No tenderness to palpation however he does have a bony prominence over the sternal clavicular joint with very mild tenderness to palpation. No significant limitation in ROM. NVI. Right small finger: Normal to inspection. He does have swelling over the PIP joint. No tenderness to palpation along the proximal phalanx. He does experiences 5 degrees of extension lag ____ make a closed fist. His DIP is 1 cm to the 2nd palmar crease. NVI. Office Procedures Fracture Care Fracture Billing Code: Fracture Billing Code Results Reviewed Results Reviewed: Xrays were obtained in the office today and personally reviewed by me of the right clavicle show no evidence of acute fracture or dislocation Xrays were obtained in the office today and personally reviewed by me of the right hand show transverse fracture through the proximal phalanx of the small finger with interval healing. Assessment & Plan Assessment & Plan (1) Sternoclavicular joint pain: Code(s): M25.519 - Pain in unspecified shoulder Category: Medical (2) Finger fracture, right: Code(s): S62.609A - Fracture of unspecified phalanx of unspecified finger, initial encounter for closed fracture Category: Medical Plan We discussed options today which include physical therapy and occupational therapy to regain his motion of right hand and right shoulder but also to improve his strength. Patient with defer this today. He is quite active at home and listens to his body symptoms and can adjust his body with activities as needed. If symptoms persist or worsen, patient will contact the office, otherwise follow-up as needed. Orders: Orders XR clavicle RT Today S42.009A - Fracture of unspecified part of unspecified clavicle, initial encounter for closed fracture XR hand RT min 3V Today M79.641 - Pain in right hand Patient Instructions: Scribed for Tree Cartwright PA-C, by Aidan Carney medical billing associate, on 05/18/2024 at 9:00 AM EST.? I, Tree Cartwright PA-C, have personally reviewed and agree with the information entered by the scribe. Coding Level of Care Code New Pt Level 3 (51219) Diagnoses Sternoclavicular joint pain M25.519 Finger fracture, right S62.609A CPT Codes Fracture Care - Fracture Billing Code: Fracture Billing Code ([id number])
== END 2024-05-18 10:17 | disposition home or self-care (01) ==
PROVIDERS: PCP Registered Nurse; Visit Provider Physician Assistant
DX: M25.511 Pain in right shoulder (principal); S62.609A Fracture of unspecified phalanx of unspecified finger, initial encounter for closed fracture; W10.8XXA Fall (on) (from) other stairs and steps, initial encounter
CPT/HCPCS: 99203

== ENCOUNTER → 2024-05-18 08:53 | Outpatient (BNV) | payer MEDICARE, SELFPAY | PROVIDERS: Visit Provider Radiology Diagnostic Radiology | DX: S42.009A Fracture of unspecified part of unspecified clavicle, initial encounter for closed fracture (principal); W10.8XXA Fall (on) (from) other stairs and steps, initial encounter | CPT/HCPCS: 73000 ==

== ENCOUNTER 2024-05-18 09:22 | Outpatient (REF) | payer MEDICARE, SELFPAY ==
--- NOTE | ~2024-05-18 | XR_ITS ---
EXAMINATION: XR HAND, RIGHT CLINICAL INFORMATION: Right hand pain. COMPARISON: None available. TECHNIQUE: PA, lateral, and oblique views of the right hand. FINDINGS: Examination demonstrates a subacute, oblique fracture involving the mid to distal diaphysis of the fifth proximal phalanx. Associated periosteal reaction is seen, but it is uncertain whether or not callus formation bridges the fracture. Associated soft tissue swelling. There is an old, healed fracture involving the fourth metacarpal bone. No other fracture or dislocation is appreciated. Bony mineralization appears preserved. No lytic or sclerotic bony lesion is seen. The joint spaces appear maintained. XR/XR hand RT min 3V IMPRESSION: Subacute, oblique fracture involving the mid to distal diaphysis of the fifth proximal phalanx. Associated periosteal reaction is seen, but it is uncertain whether or not callus formation bridges the fracture. Recommend clinical correlation and follow-up as clinically indicated. Electronically signed by: Mohamud Garza MD 07/23/2024 06:51 PM EDT
--- NOTE | ~2024-05-18 | XR_ITS ---
EXAMINATION: XR CLAVICLE, RIGHT CLINICAL INFORMATION: Fracture, unspecified aspect of clavicle. COMPARISON: None relevant. TECHNIQUE: Two views of the right clavicle. FINDINGS: There is a vertically oriented fracture of the proximal metaphysis of the medial clavicle near the sternoclavicular junction. There is approximately 6 mm of inferior displacement of the distal fragment. No additional fractures identified. No suspicious focal bony abnormality. Well corticated rounded osseous density subjacent to the glenohumeral joint on the right is indeterminate but could represent a loose body. Mild degenerative arthropathy present in the AC joint and right glenohumeral joint. No pneumothorax identified. No soft tissue abnormalities. XR/XR clavicle RT IMPRESSION: Vertically aligned the metaphyseal fracture proximal right clavicle with mild displacement. Electronically signed by: Beny Brush MD 07/13/2024 04:55 PM EDT
== END 2024-05-18 09:23 | disposition home or self-care (01) ==
LOC: HO.HOSX 09:22
PROVIDERS: Visit Provider Physician Assistant
DX: M79.641 Pain in right hand (principal); S42.009A Fracture of unspecified part of unspecified clavicle, initial encounter for closed fracture; S62.609A Fracture of unspecified phalanx of unspecified finger, initial encounter for closed fracture
CPT/HCPCS: 73000; 73130; 99202

== ENCOUNTER 2024-11-13 09:24 | Outpatient (AMB) | payer MEDICARE, SELFPAY ==
[2024-11-13 09:31] VITALS: BP 132/78; PULSE 78; O2SAT 97; BMI 35.7
--- NOTE | 2024-11-13 09:31 | A.OFFVIS_ITS ---
Vital Signs 11/13/24 09:31 Height 5 ft 8 in Weight 234 lb 12.677 oz BMI 35.7 BP 132/78 Blood Pressure Location Lt brachial Position Sitting Pulse 78 Pulse Source Pulse Oximeter Pulse Oximetry (%) 97 Oxygen Delivery Method Room Air Intake Visit Reasons: COPD Intake Note: pt is here for follow up and states he does get short of breath, he has been out of incruse due to high deductible. He does need a refill for albuterol for nebulizer. Transcribing Machine Mechanic Required: No Allergies ibuprofen [IBUPROFEN] Allergy (Unknown, Verified 11/13/24 09:54) GI UPSET morphine [MORPHINE] Allergy (Unknown, Verified 11/13/24 09:54) NAUSEA & VOMITING tramadol [TRAMADOL] Allergy (Unknown, Verified 11/13/24 09:54) SEIZURES Medication List - Last Reconciled 11/13/24 by Christiano Velez MD albuterol sulfate mg inhalation Q4H PRN allopurinol 300 mg PO DAILY alpha lipoic acid 600 mg PO DAILY atorvastatin 40 mg PO BEDTIME fluticasone propion-salmeterol 250-50 mcg/dose (Advair Diskus) 1 ea inhalation BID fluticasone propionate 50 mcg/actuation sprays intranasal lisinopril-hydrochlorothiazide 10-12.5 mg 1 tab PO DAILY methimazole 5 mg PO DAILY Ventolin HFA 90 mcg/actuation (albuterol sulfate) 2 puffs inhalation Q4-6H PRN NS verapamil ER 240 mg PO DAILY Do you need a note to return to daycare/school/sports/work: No HPI HPI COPD: Details: THIS 64 YEARS OLD GENTLEMAN GROSSLY OBESE, WITH HISTORY OF COPD, AND OBSTRUCTIVE SLEEP APNEA. IS HERE FOR FOLLOW-UP AFTER 6 MONTHS. HE IS A KNOWN CASE OF SEVERE OBSTRUCTIVE SLEEP APNEA, AND WAS BEING TREATED WITH BIPAP AFTER A TITRATION STUDY AT [facility]. HE RETURNED THE CPAP MACHINE BECAUSE HE COULD NOT USE DUE TO HIGH PRESSURES., HE HAS BEEN WITHOUT CPAP FOR MORE. THAN A YEAR HE WAS ALSO HAVING SYMPTOMS OF SHORTNESS OF BREATH WITH COUGH AND WHEEZING AND DIAGNOSED TO HAVE ASTHMA/COPD, HE WAS BEING TREATED WITH WIXELA 250-51 INHALATION B.I.D. AND INCRUSE ELLIPTA. HE COULD NOT GET INCRUSE ELLIPTA BECAUSE OF HIGH CO-PAYMENT. HE HAS MILD INTERMITTENT COUGH AND NOW COMPLAINS OF INCREASING SHORTNESS OF BREATH ON EXERTION. I THINK THIS COINCIDES WITH HIS GAINING WEIGHT. HIS SPIROMETRY IN 2023 WAS ESSENTIALLY NORMAL. HE DOES NOT SMOKE CIGARETTES BUT SMOKES WEED 3 TIMES A DAY. [facility] Medical History Dyspnea on exertion COPD (chronic obstructive pulmonary disease) Surgical History H/O hernia repair Family History Mother No problems noted. Father Heart attack Social History Alcohol intake: current Alcohol intake frequency: holidays/special occasions only Patient Tobacco Use Status: Never used Tobacco Substance Use Type: Marijuana Current occupational status: retired and disabled Current occupation: right hand dominant Review of Systems Const All systems reviewed & are unremarkable except as noted in HPI and below Eyes Reports no additional complaints ENT Reports no additional complaints Card Denies chest pain, Reports leg edema (Mild, on standing too long) and Reports dyspnea on exertion Resp Reports as per HPI and Reports dyspnea on exertion GI Reports no additional complaints Reports no additional complaints Musc Reports abnormal gait (He has mild unstable gait off and on and uses a walking stick ), Reports back pain, Reports radiating pain into limb and Reports stiffness Skin/Breast Reports system reviewed and no additional complaints, except as documented Neuro Reports abnormal gait (He has mild unstable gait off and on and uses a walking stick ) Psych Reports no additional complaints Endo Reports other (Thyroid dysfunction) Nate/Lymph Reports no additional complaints Aller/Immun Reports no additional complaints Physical Exam Vital Signs: Last Vital Signs Pulse 78 11/13/24 09:31 BP 132/78 11/13/24 09:31 Pulse Ox 97 11/13/24 09:31 Oxygen Delivery Method Room Air 11/13/24 09:31 BMI result Body Mass Index 35.7 Const General: healthy appearing (Except for being overweight), comfortable, no acute distress, alert and awake Orientation/consciousness: patient oriented x3 HEENT Head: Yes normal to inspection General nose exam: No nasal polyps present and No nasal discharge present Face and sinus: Yes sinuses nontender Mouth: oropharynx abnormals (Narrow and crowded, Mallampati class 3) Teeth and gingiva: other (RETROGANTHIA OF THE LOWER JAW.) Throat: Yes posterior oropharynx normal Eyes General: appearance normal, both eyes and all related structures Neck Neck: Yes normal visual inspection, Yes no lymphadenopathy, Yes trachea midline, Yes no JVD and Yes other (Neck circumference 18 in) Thyroid: Thyroid normal Chest Chest palpation & inspection: normal inspection of the chest, normal palpation of entire chest wall and no tenderness Resp Other: Percussion note is resonant, breath sounds are very distant with prolonged expiratory phase. No audible wheezes or crepitations. Cardio Palpation: normal PMI Rate: regular rate Rhythm: regular rhythm Heart sounds: no gallops and no murmurs GI Palpation (GI): Soft to palpation, nontender, No hepatosplenomegaly present and no masses Auscultation: normal bowel sounds Back/Spine/Pelvis Thoracic/Lumbar Spine: thoracic and lumbar spine normal to inspection and thoraco-lumbar ROM limited Skin General skin exam: no rashes or lesions noted Neuro General: patient oriented x3, No gait normal (Has mild impairment of the gait and uses a walking stick) and no focal motor deficits Cranial nerves: Yes CN's II-XII intact bilaterally Extrem General: Yes normal to inspection, Yes no clubbing, cyanosis or edema, Yes no calf tenderness and Yes edema (Chronic stasis edema currently controlled with elastic stockings) Psych Appearance: grossly normal and well kempt Speech and movement: Normal speech and movement present Assessment & Plan Assessment & Plan (1) COPD (chronic obstructive pulmonary disease): Comment: This gentleman has features of chronic obstructive pulmonary disease. He denies history of smoking cigarettes. He smokes marijuana about 3 times a day. COMPLAINS OF INCREASED SHORTNESS OF BREATH ON EXERTION. WHICH I THINK COINCIDES WITH HIS GAINING WEIGHT. I REVIEWED THE FINDINGS OF SPIROMETRY WITH HIM WHICH WAS ESSENTIALLY NORMAL. Code(s): J44.9 - Chronic obstructive pulmonary disease, unspecified Category: Medical Plan: ADVISED TO USE WIXELA 250-51 INHALATION B.I.D.. AND ALBUTEROL HFA 2 PUFFS Q 6 HOURS ONLY P.R.N. (2) Dyspnea on exertion: Comment: Dyspnea on exertion is secondary to COPD , which however is mild, weight gain and general deconditioning. Code(s): R06.09 - Other forms of dyspnea Category: Medical Plan: He needs to lose weight. Continue to do deep breathing exercises. (3) SANTOSH (obstructive sleep apnea): Comment: Severe degree of SANTOSH. The AHI was 52/hr, oxygen laura was 76% Had been started on BIPAP therapy, and was being followed by sleep Medicine Services. He was not able to use BiPAP due to high pressures , so he returned the device. It is almost 1 year ago. At present he is having increased symptoms, with frequent awakening at night. Recent increase in his weight has precipitated more symptoms related to sleep apnea. Code(s): G47.33 - Obstructive sleep apnea (adult) (pediatric) Category: Medical Plan: Patient was educated, I told him that he needs treatment for SANTOSH which should include. 1- aggressive weight reduction 2- repeat sleep study and then to be started on CPAP therapy again. Coding Level of Care Code Est Pt Level 4 (25400) Diagnoses COPD (chronic obstructive pulmonary disease) J44.9 Dyspnea on exertion R06.09 SANTOSH (obstructive sleep apnea) G47.33
--- OUTSIDE RECORDS SUMMARY | 2024-11-13 09:54 | XMS_ITS | Continuity of Care Document ---
Author Organization [facility] Address [address] [place] [id number] Care Team Providers Care It Admin Name Role Phone [place] MOUNTER, Nyasia Primary Care Physician Encounter [facility] Date(s): 09/29/24 - 10/29/24 [facility] [address] [place] [id number] Encounter Type: Triage Allergies, Adverse Reactions, Alerts Substance Criticality Severity Reaction Reaction Severity Status [facility] siezure Ac tive traMADol Active Immunizations Given and Recorded Vaccine Date Status Refusal Reason tetanus/diphtheria/pertussis, acel(Tdap) 08/05/21 Given SARS-CoV-2 (COVID-19) mRNA BNT-162b2 vac 01/09/21 Given SARS-CoV-2 (COVID-19) mRNA BNT-162b2 vac 12/19/20 Given Medications allopurinol 300 mg oral tablet 1 tablet = 300 mg, By Mouth, Daily, 0 Refills, Maintenance, 04/03/15 10:33:50 AM EDT Start Date: 04/03/15 Status: Ordered Repeat number: 1 atorvastatin 40 mg oral tablet 1 tablet = 40 mg, By Mouth, Daily, 0 Refills, Maintenance Start Date: 06/29/18 Status: Ordered Repeat number: 1 Flonase 50 mcg/inh nasal spray 1 sprays, Daily, 0 Refills, Maintenance, 05/01/15 10:32:49 AM EDT Start Date: 05/01/15 Status: Ordered Repeat number: 1 fluticasone-salmeterol 250 mcg-50 mcg inhalation powder 1, puffs, Inhalation, 2 times a day, # 180 each, Refills 0, Maintenance, 05/03/23 8:51:00 PM EDT, Powder Start Date: 05/03/23 Status: Ordered Quantity: 180.0 Unit: each Repeat number: 1 gabapentin 300 mg oral capsule 300 mg, By Mouth, 3 times a day, # 90 capsule, Refills 0, Tot. Refills 0, Maintenance, 03/31/24 5:38:00 AM EDT, Route to Pharmacy Electronically, [id number], Partial fill upon patient request if the prescription is for a schedule II opioid drug. Start Date: 03/31/24 Stop Date: 04/30/24 Status: Ordered Quantity: 90.0 Unit: capsule Repeat number: 1 hydrochlorothiazide-lisinopril 12.5 mg-10 mg oral tablet 1 tablet, By Mouth, Daily, # 30 tablet, 0 Refills, Maintenance, 05/03/23 8:49:00 PM EDT, Tablet, Partial fill upon patient request if the prescription is for a schedule II opioid drug. Start Date: 05/03/23 Status: Ordered Quantity: 30.0 Unit: tablet Repeat number: 1 Incruse Ellipta 62.5 mcg/inh inhalation powder 1 each, Inhalation, Every 24 hours, doses should be taken at least 24 hours apart, # 30 each, 0 Refills, Maintenance, 05/02/23 4:42:00 AM EDT, Powder, Partial fill upon patient request if the prescription is for a schedule II opioid drug. Start Date: 05/02/23 Status: Ordered Quantity: 30.0 Unit: each Repeat number: 1 methadone 10 mg oral tablet = 125 mg, By Mouth, Daily in AM, 0 Refills, Maintenance, 01/09/24 7:49:00 AM EDT, Partial fill upon patient request if the prescription is for a schedule II opioid drug. Start Date: 01/09/24 Status: Ordered Repeat number: 1 methimazole 5 mg oral tablet 1, tablet, By Mouth, Daily, # 90 tablet, Refills 3, Tot. Refills 3, Maintenance, 09/30/24 10:08:00 AM EST, Route to Pharmacy Electronically, [id number], 172.7, cm, 04/05/24 8:46:00 EDT, Height, 99.2, kg, 01/09/24 8:19:00 EDT, Dry Weight Start Date: 09/30/24 Status: Ordered Quantity: 90.0 Unit: tablet Repeat number: 4 Indication: Thyrotoxicosis with diffuse goiter without thyrotoxic crisis or storm ProAir HFA 2 puffs, Inhalation, 4 times a day, 0 Refills, Maintenance, 04/03/15 10:33:57 AM EDT Start Date: 04/03/15 Status: Ordered Repeat number: 1 Verapamil 240 mg ER tablet By Mouth, Daily in AM, 0 Refills, Maintenance, 04/03/15 10:32:53 AM EDT Start Date: 04/03/15 Status: Ordered Repeat number: 1 Problem List Condition Confirmation Course Effective Dates Status Health St atus Informant Cervical spondylosis Confirmed Active Dyslipidemia Confirmed Active Bilateral foot pain Confirmed Active Graves' disease Confirmed Active History of gout Confirmed Active Use of opiates for therapeutic purposes Confirmed Active Hypertension Confirmed Active Low back pain Confirmed Active Myofascial pain Confirmed Active Neck pain Confirmed Active Obese class I Confirmed Active 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 Social History Social History Type Response Smoking Status Former smoker; Type: Cigarettes; Tobacco use times per day: quir 10 years ago; entered on: 10/16/15 Sex Sex Representation Male (finding) Patient Care team information Care Team Personnel Name: Mary Ellen Quesada RN Position: [facility] ED RN W/OE and Tasks Member Role: Primary Care Nurse Name: Pat Holt RN Position: S RN Member Role: Primary Care Nurse Name: Nysaia Baum NP Position: Reference Physician Member Role: PCP Address: [address] [place] [address] Telecom: Care Team Related Persons Name: CAPRI ARROYO Insurance Providers Guarantor name: SHERYL ARROYO Health Plan Information #: 1 Payer: [employer] Member Number: NA Policy Number: NA Group Number: [id number]
--- OUTSIDE RECORDS SUMMARY | 2024-11-13 09:54 | XMS_ITS | Encounter Summary ---
Author Organization [employer] Address [address] [place] [address] Care Team Providers Care Wood Panel Inspector Name Role Phone [facility] Primary Care Provider Encounter Details Date Type Department Care Team ([facility] st Contact Info) Description 08/24/2023 [facility] Health Information Management [address] [place], [place] [phone] [facility] [address] [place] [address] Social History Tobacco Use Types Packs/Day Years Used Date Smoking Tobacco: Former Cigarettes Smokeless Tobacco: Current Comments:Vapes Alcohol Use Standard Drinks/Week Comments Yes 2 (1 standard drink = 0.6 oz pur e alcohol) Rare Occassions Depression Answer Date Recorded Patient Health Questionnaire-9 Score 0 02/03/2023 Housing Stability Answer Date Recorded What is your housing situation today? I have hola galvan 07/25/[address] you li ve. Do you have problems with any of the following? None of the above 07/25/2023 Food Insecurity Answer Date Recorded Within the past 12 months, y ou worried that your food would run out before you got money to buy more: Never True 07/25/2023 Within the past 12 months,th e food you bought just didn't last and you didn't have enough money to get more: Never True Transportation Answer Date Recorded In the past 12 months, has l ack of transportation kept you from medical appts, meetings, work or from getting things needed for daily living? No 07/25/2023 Utilities Answer Date Recorded In the past 12 months, has t he electric, gas, oil or water [employer] threatened to shut off services in your home? No 07/25/2023 Depression Answer Date Recorded Patient Health Questionnaire-2 Score 0 02/03/2023 Sex and Gender Information Value Date Recorded Sex Assigned at Male 08/12/2022 6:04 PM EDT Legal Sex Male 5:36 PM EDT Gender Identity Male 08/12/2022 6:04 PM EDT Sexual Orientation Straight 08/12/2022 6: 04 PM EDT documented as of this encounter Plan of Treatment Upcoming Encounters Date Type Department Care Team (Late st Contact Info) Description 11/15/2024 8:30 AM EST Office Visit [place] [facility] [address] [place] [address] Monse Ortiz 12/28/2024 10:00 AM EDT Office Visit [facility] [address] [place] [address] Nyasia Baum FNP [address] [place] [address] documented as of this encounter Visit Diagnoses Not on filedocumented in this encounter Additional Health Concerns Assessment Noted Time PHQ-9 Depression Total Score: 0 02/04/20 23 10:19 AM EDT documented as of this encounter Care Teams Wood Panel Inspector Relationship Specialty Start Date End Date Nyasia Baum FNP [address] [place] [address] PCP - General Family Medicine 09/08/22 documented as of this encounter
--- OUTSIDE RECORDS SUMMARY | 2024-11-13 09:55 | XMS_ITS | Encounter Summary ---
Author Organization [employer] Address [address] [place] [address] [address] [place] [address] Care Team Providers Care Model Maker Plastic Name Role Phone [place] Primary Care Provider [phone] Encounter Details Date Type Department Care Team (Late st Contact Info) Description 11/15/2022 Orders Only [facility] PEDS [address] [place], [place] [phone] Abigail Wilkins LPN Social History Tobacco Use Types Packs/Day Years Used Date Smoking Tobacco: Never Assessed Sex and Gender Information Value Date Recorded Sex Assigned at Male 08/12/2022 6:04 PM EDT Legal Sex Male 5:36 PM EDT Gender Identity Male 08/12/2022 6:04 PM EDT Sexual Orientation Straight 08/12/2022 6: 04 PM EDT documented as of this encounter Plan of Treatment Upcoming Encounters Date Type Department Care Team (Late st Contact Info) Description 11/15/2024 8:30 AM EST Office Visit [facility] DENTAL [address] [place] [address] Monse Ortiz 12/28/2024 10:00 AM EDT Office Visit [facility] MEDICINE [address] [place], [place] [phone] [facility] [address] [place], [place] [phone] documented as of this encounter Procedures Procedure Name Priority Date/Time Associated Diagnosis Comments VENOUS BLOOD GAS Routine 09/26/2023 10:5 8 AM EST T4, FREE Routine 09/05/2023 10:[address] ABDOMEN PELVIS W CONTRAST Routine 12/15/2022 12:40 PM EST POCT CREATININE GFR Routine 12/15/2022 1 1:22 AM EST documented in this encounter Results * (ABNORMAL) VENOUS BLOOD GAS (09/26/2023 10:58 AM EST) VBG pH 7.41 7.32 - 7.43 [facility] VBG PCO2 53 mmHg [facility] VBG PO2 34 mmHg [facility] VBG Base Excess 8.1 mmol/L [facility] VBG HCO3 34(H) 22 - 26 mmol/L [facility] O2 Sat, Reji 48.0 % [facility] 09/26/2023 10:5 8 AM EST 09/26/2023 11:27 AM EST Generic External Data Provider LAB BLOOD ORDERAB LES Final Result Performing Organization Address City/[facility] [address]/ZIP Co de Phone Number [facility] [address] [place] [phone] * T4, Free (09/05/2023 10:06 AM EST) Free T4 (Free Thyroxine) 0.87 0.71 - 1.85 ng/dL [facility] 09/05/2023 10:0 6 AM EST 09/05/2023 11:20 AM EST [facility] REAL PROPERTY EVALUATOR LAB BLOOD ORDERABLES Final Re sult Performing Organization Address City/[facility] [address]/ZIP Co de Phone Number [facility] [address] [place] [address] [phone] * CT Abdomen Pelvis w/ Contrast (12/15/2022 12:40 PM EST) Anatomical Region Laterality Modality Body, Pelvis, Abdomen Computed T omography 12/15/2022 12:4 0 PM EST Narrative 12/20/2022 2:28 PM EDT ? [facility] ?[address] ?[place] [address] ? CT Scan Report ? Signed ? Patient: Quenntenisha,Victor Manuel ?MR#: [id number] ?? [id number] ? : 1960 ?Acct:[id number] ? Age/Sex: 62 / M ?ADM Date: 12/15/22 ? Loc: HO.CT ? Attending Dr: Rica DELGADO ? Ordering Physician: Rica Haider ?? Date of Service: 12/15/22 ?? Procedure(s): CT abdomen pelvis w IV con ?? Accession Number(s): [id number] ? cc: Rica Haider ? EXAMINATION: ?? CT ABDOMEN AND PELVIS WITH CONTRAST ? CLINICAL INFORMATION: ?? Left lower quadrant abdominal pain. ? COMPARISON: ?? None available. ? TECHNIQUE: ?? Multidetector volumetric images were obtained from the superior aspect ?? of the liver through the pubic symphysis following administration 85 mL ?? of Omnipaque 350 intravenous contrast. Sagittal and coronal reformatted ?? images were obtained on the technologist's workstation. ? Oral contrast: No ? This CT examination was performed using dose optimization techniques as ?? appropriate, variously including the following: ?? *Automated exposure control ?? *Adjustment of mA and/or kV according to patient size (this includes ?? techniques or standardized protocols for targeted exams where dose is ?? matched to indication/reason for exam; i.e. extremities or head) ?? *Use of iterative reconstruction technique ? DLP: ?? 585 mGy-cm ? FINDINGS: ? LUNG BASES: Mild scarring is present at the lung bases along with a ?? calcified right lower lobe granuloma. No consolidations, suspicious ?? lung masses. The heart size is normal. ? LIVER, GALLBLADDER, AND BILIARY TREE: The liver is normal in size, ?? shape, and attenuation. Multiple small benign-appearing hepatic cysts ?? are present. No worrisome solid focal hepatic lesion or biliary ductal ?? dilatation is present. The gallbladder is unremarkable with no evidence ?? of radiopaque gallstones, gallbladder wall thickening, or obvious ?? pericholecystic inflammatory changes. ? PANCREAS: There is fatty infiltration of the pancreas. No pancreatic ?? masses, calcifications or ductal dilatation is seen. ? SPLEEN: Unremarkable. ? ADRENAL GLANDS: Unremarkable. ? KIDNEYS AND URETERS: The kidneys are normal in size, shape, and ?? attenuation. There are benign bilateral Bosniak class I renal cysts ?? present which need no additional imaging or follow-up. No ?? hydronephrosis, hydroureter, or calculi seen. No perinephric stranding. ? BLADDER: Unremarkable. ? GASTROINTESTINAL TRACT: Thickening of the gastric fundus and body most ?? likely secondary to underdistention The small and large bowel are ?? unremarkable. The appendix is unremarkable. ? ABDOMINAL WALL: Small left-sided paraumbilical hernia seen containing ?? predominantly fat with a tiny bit of wall of a single portion of the ?? transverse colon. ? LYMPH NODES: No retroperitoneal lymphadenopathy. ? VASCULAR: Calcific plaque seen in the aorta and iliac vessels without ?? aneurysm. ? PELVIC VISCERA: The prostate and seminal vesicles are unremarkable. No ?? free pelvic fluid is seen. ? OSSEOUS STRUCTURES: Unremarkable. ? CT/CT abdomen pelvis w IV con ?? IMPRESSION: ?? 1. A cause for the patient's left lower quadrant pain has not been ?? found. ? 2. Incidental note made of benign hepatic cysts, fatty infiltration of ?? the pancreas, small left paraumbilical hernia and other findings ?? described above. ? Fleischner guidelines were followed. ? Dictated By: ?Paul Leroy MD ? Signed By: ?<Electronically signed by Paul Leroy MD in OV> ? 12/20/22 1425 ? DD/ 1240 ? TD/TT: ? Extension Professor: SS ? Procedure Note Jaylene Cano - 12/20/2022 [id number] [place] [address] CT Scan Report Signed Patient: Victor Manuel Jay#: [id number] : 2Acct:[id number] Age/Sex: 62 / MADM Date: 12/15/22 Loc: HO.CT Attending Dr: Rica Haider REAL PROPERTY EVALUATOR Ordering Physician: Rica Haider Date of Service: 12/15/22 Procedure(s): CT abdomen pelvis w IV con Accession Number(s): [id number] cc: Rica Haider EXAMINATION: CT ABDOMEN AND PELVIS WITH CONTRAST CLINICAL INFORMATION: Left lower quadrant abdominal pain. COMPARISON: None available. TECHNIQUE: Multidetector volumetric images were obtained from the superior aspect of the liver through the pubic symphysis following administration 85 mL of Omnipaque 350 intravenous contrast. Sagittal and coronal reformatted images were obtained on the technologist's workstation. Oral contrast: No This CT examination was performed using dose optimization techniques as appropriate, variously including the following: *Automated exposure control *Adjustment of mA and/or kV according to patient size (this includes techniques or standardized protocols for targeted exams where dose is matched to indication/reason for exam; i.e. extremities or head) *Use of iterative reconstruction technique DLP: 585 mGy-cm FINDINGS: LUNG BASES: Mild scarring is present at the lung bases along with a calcified right lower lobe granuloma. No consolidations, suspicious lung masses. The heart size is normal. LIVER, GALLBLADDER, AND BILIARY TREE: The liver is normal in size, shape, and attenuation. Multiple small benign-appearing hepatic cysts are present. No worrisome solid focal hepatic lesion or biliary ductal dilatation is present. The gallbladder is unremarkable with no evidence of radiopaque gallstones, gallbladder wall thickening, or obvious pericholecystic inflammatory changes. PANCREAS: There is fatty infiltration of the pancreas. No pancreatic masses, calcifications or ductal dilatation is seen. SPLEEN: Unremarkable. ADRENAL GLANDS: Unremarkable. KIDNEYS AND URETERS: The kidneys are normal in size, shape, and attenuation. There are benign bilateral Bosniak class I renal cysts present which need no additional imaging or follow-up. No hydronephrosis, hydroureter, or calculi seen. No perinephric stranding. BLADDER: Unremarkable. GASTROINTESTINAL TRACT: Thickening of the gastric fundus and body most likely secondary to underdistention The small and large bowel are unremarkable. The appendix is unremarkable. ABDOMINAL WALL: Small left-sided paraumbilical hernia seen containing predominantly fat with a tiny bit of wall of a single portion of the transverse colon. LYMPH NODES: No retroperitoneal lymphadenopathy. VASCULAR: Calcific plaque seen in the aorta and iliac vessels without aneurysm. PELVIC VISCERA: The prostate and seminal vesicles are unremarkable. No free pelvic fluid is seen. OSSEOUS STRUCTURES: Unremarkable. CT/CT abdomen pelvis w IV con IMPRESSION: 1. A cause for the patient's left lower quadrant pain has not been found. 2. Incidental note made of benign hepatic cysts, fatty infiltration of the pancreas, small left paraumbilical hernia and other findings described above. Fleischner guidelines were followed. Dictated By: Paul Leroy MD Signed By: <Electronically signed by Paul Leroy MD in OV> 12/20/22 1425 DD/ 1240 TD/TT: Extension Professor: SS [facility] External Provider IMG CT PROCEDURES Edited Result - Final * POCT Creatinine GFR (12/15/2022 11:22 AM EST) POCT Creatinine 0.6 0.5 - 1.4 mg/dL [facility] GFR POC 60 [facility] Comment:Chronic Kidney Disea se: Estimated GFR < 60 mL/min/[id number] Kidney Disease: Estimated GFR < 15 mL/min/1.73m2 12/15/2022 11:2 2 AM EST 12/15/2022 2:40 PM EST Narrative [facility] - 12/15/2022 2:42 PM EST [phone] [facility] Exter nal Provider LAB POINT OF CARE TEST DOCKED DEVICE ORDERABLES Final Result [facility] [address] [place] [address] [phone] documented in this encounter Visit Diagnoses Not on filedocumented in this encounter Care Teams Model Maker Plastic Relationship Specialty Start Date End Date Nyasia Baum FNP [address] [place] [address] PCP - General Family Medicine 09/08/22 documented as of this encounter
--- OUTSIDE RECORDS SUMMARY | 2024-11-13 09:55 | XMS_ITS | Clinical Summary ---
Author Organization [employer] Address [address] [place] [address] 7[address] [place] [address] Care Team Providers Care Valuation Consultant Name Role Phone Nyasia Baum [facility] Primary Care Provider [phone] Allergies Active Allergy Reactions Criticality Noted Date Comments Gabapentin 11/18/2022 Other reaction(s): panic attack, diarrhea Ibuprofen 04/14/2018 Other reaction(s): Abdominal discomfort, Stomach Pain Morphine 04/14/2018 Other reaction(s): Abdominal bloating, Stomach Pain Tramadol 04/14/2018 Other reaction(s): Grand mal seziures, Seizure Venlafaxine Hcl 11/18/2022 Other reaction(s): chest tightness and rash Medications methIMAzole (Tapazole) 5 MG tablet Take 5 mg by mouth in the morning. 023 Active methadone (Dolophine) 10 MG tablet 125mg 021 Active albuterol (2.5 MG/3ML) 0.083% nebulizer solutionIndicatio ns:Chronic obstructive pulmonary disease, unspecified COPD type (CMS/HCC) Take 3 mL (2.5 mg) by nebulization every 4 (four) hours if needed for wheezing. 75 mL 3 023 Active albuterol 108 (90 Base) MCG/ACT inhalerIndication s:Shortness of breath INHALE 2 PUFFS INTO THE LUNGS EVERY 4 TO 6 HOURS NEEDED 8.5 g 1 023 Active Fluticasone-Salme terol 250-50 MCG/ACT aerosol powder Take 1 puff by mouth 2 times daily. For COPD 023 Active Alpha-Lipoic Acid 600 MG capsuleIndication s:Chronic inflammatory demyelinating polyneuropathy (CMS/HCC) Take 1 capsule by oral route daily 30 capsule 2 023 Active allopurinol (Zyloprim) 300 MG tabletIndications :Gout, unspecified cause, unspecified chronicity, unspecified site TAKE ONE TABLET BY MOUTH EVERY DAY 90 tablet 1 024 Active Incruse Ellipta 62.5 MCG/ACT aerosol powderIndications :Chronic obstructive pulmonary disease, unspecified COPD type (CMS/HCC) INHALE ONE PUFF BY MOUTH EVERY MORNING 30 each 3 024 Active lidocaine (Lidoderm) 5 % patchIndications: Closed nondisplaced fracture of phalanx of right little finger, unspecified phalanx, initial encounter Apply 1 patch topically Once per day. Remove & discard patch within 12 hours or as directed by MD. 30 patch 1 Active Additional Information Patient not taking.Reported on 05/16/2024 diclofenac (Cataflam) 50 MG tabletIndications :Closed nondisplaced fracture of phalanx of right little finger, unspecified phalanx, initial encounter Take 1 tablet (50 mg) by mouth 3 times daily. 30 tablet 024 2024 Active Additional Information Patient not taking.Reported on 05/16/2024 gabapentin (Neurontin) 600 MG tabletIndications :Closed nondisplaced fracture of phalanx of right little finger, unspecified phalanx, initial encounter Take 1 tablet (600 mg) by mouth 3 times daily. 30 tablet 024 2024 Active Additional Information Patient not taking.Reported on 05/16/2024 verapamil SR (Calan SR) 240 MG ER tabletIndications :Benign hypertension TAKE ONE TABLET BY MOUTH EVERY MORNING WITH FOOD 90 tablet 1 024 Active lisinopril-hydroC HLOROthiazide 10-12.5 MG tablet TAKE ONE TABLET BY MOUTH EVERY MORNING 90 tablet 1 024 Active atorvastatin (Lipitor) 40 MG tabletIndications :Mixed hyperlipidemia TAKE ONE TABLET BY MOUTH AT BEDTIME 90 tablet 1 024 Active fluticasone (Flonase) 50 MCG/ACT nasal sprayIndications: Shortness of breath ADMINISTER 2 SPRAYS INTO EACH NOSTRIL ONCE DAILY NEEDED FOR ALLERGIES AND NASAL CONGESTION 16 g 025 Active fluticasone (Flonase) 50 MCG/ACT nasal sprayIndications: Shortness of breath APPLY TWO SPRAYS INTO EACH NOSTRIL ONCE A DAY NEEDED FOR ALLERGIES AND NASAL CONGESTION 16 g 024 2024 Discontinued Active Problems Problem Noted Date Diagnosed Date Class 1 obesity 12/07/2023 Drug-induced erectile dysfunction 12/07/2023 Chronic back pain 02/06/2023 Overview (02/06/2023): ?? cervical disc herniation; chronic LBP with lumbar radiculopathy. Lumbar MRI from 2018 with the following impression: At L3-L4 a right foraminal protrusion has mildly progressed from prior causing mild mass effect on the right L3 nerve root and contacting the descending right L4 nerve root in the subarticular zone. Otherwise, stable milder spondylotic changes are noted and are detailed above. Chronic abdominal pain 02/06/2023 Overview (02/06/2023): ? ? Persistent abdominal pain near umbilicus x several months. Seen in office 11/2022 for evaluation of same concern with unremarkable labwork (CMP, CBC, lipids). CT scan at this time with the following impression A cause for the patient's left lower quadrant pain has not been found. Incidental note made of benign hepatic cysts, fatty infiltration of the pancreas, small left paraumbilical hernia . Pt has referral pending for GI. Denies n/v/d. Reports pain has marginally improved since initial visit Healthcare maintenance 02/06/2023 Overview (08/26/2023): C-Scope: 2015, negative PSA: 12/2022 .06 HCV Screen: Neg 11/2022 HIV Screen: Neg 11/2022 STI Screening: Declines Vision Exam: [facility] Hgb A1c: 5.0% at QT prolongation 02/06/2023 Assessment & Plan (12/08/2023 11:47 AM EST): Most likely related to methadone use, electrolytes on 12/05 are wnl Pt needs to continue methadone, will hold verapamil the morning of the surgery Needs EKG monitoring during the surgery Chronic obstructive pulmonary disease 12/29/2022 Overview (08/25/2023): ?? PFT's from 2018 with moderate-severe obstruction and no response to bronchodilation. Vapes, smokes marijuana. ?? Incruse ellipta once daily ?? Advair b.i.d ?? Albuterol PRN ? ? 03/2023-Has initial visit with [facility] pulmonology. Per visit note pt with COPD s/t marijuana use. Plan to continue incruse ellipta and advair. Discontinued combivent and flovent. Assessment & Plan (12/08/2023 11:48 AM EST): Pt is doing well Continue Spiriva, use it on the morning of the surgery Assessment & Plan (06/09/2023 9:53 PM EDT): ?? Follow up as scheduled with pulmonology ?? Pt reports needing PA for incruse since insurance change. Will initiate PA Assessment & Plan (02/06/2023 4:51 PM EDT): ?? Spoke with pharmacy. Insurance will cover Incruse instead of spiriva ?? START once daily incruse ?? Continue albuterol PRN Chronic inflammatory demyelinating polyneuropath y 12/29/2022 Overview (08/27/2023): ?? EMG from 2018 with the following result: Diffuse sensory-motor axonal and demyelinative peripheral neuropathy in the lower extremities.EMG of the right L4-S1 innervated muscles consistent with chronic distal neuropathic changes. ? ? 03/2023- Saw [facility] vascular. Per visit note negative venous ultrasound. Etiology of polyneuropathy unclear ?? B12, folate, magnesium WNL 12/2022 ?? Did not tolerate amitriptyline or gabapentin (worsened anxiety) Assessment & Plan (10/14/2023 7:04 AM EST): ?? Referred to neurology 08/2023 Assessment & Plan (08/27/2023 1:31 PM EST): ?? Etiology unclear. Foot abnormalities increase concern for systemic disease. ?[id number], ?gammopathy, ?autoimmune dysfunction ?? Will order additional labs and refer to neurology ?? Foot xrays and STAT referral to podiatry for hammer toe Assessment & Plan (06/09/2023 9:54 PM EDT): ?? STOP amitryptiline (s/e) ?? START daily alpha lipoic acid 600mg Reviewed administration, risks, side effects ?? Encouraged daily compression stockings ?? Follow up as scheduled with vascular Assessment & Plan (02/06/2023 4:47 PM EDT): - EKG with QT prolongation which is consistent with patient's high dose of methadone (125mg). Discussed results with patient who reports plan to start taper of methadone dose. - Will hold off on increasing amitriptyline until patient on lower methadone dose with repeat EKG WNL - Reviewed strict ED precaution to include chest pain, SOB, palpitations. Pt verbalizes understanding and agrees to plan - Pt referred to vascular at previous visit. Follow up as scheduled. Cervical radiculopathy 11/18/2022 Depression 11/18/2022 Hyperlipidemia 11/18/2022 Obstructive sleep apnea syndrome 11/18/2022 Overview (07/02/2024): Declines BiPAP tx-unable to tolerate mask Opioid dependence 11/18/2022 Assessment & Plan (12/08/2023 11:47 AM EST): Doing well on methadone 125 mg. He will take methadone dose on the morning of the surgery Testicular mass 03/02/2018 Hyperthyroidism 02/18/2017 Overview (02/06/2023): -Followed by [facility], reports recent lab work through their office - Methimazole Normocytic anemia 02/18/2017 Impaired fasting glucose 02/18/2017 Cervical disc herniation 02/14/2017 Benign hypertension 02/14/2017 Overview (02/06/2023): ?? Lisinopril 20mg/Hctz 25mg ?? Verapamil 240mg ER ?? Well controlled Maintenance: BMP: 11/2022 Lipid Panel: 11/2022 ASCVD Risk: LDL < 70 EK01/2023 borderline QT prolongation - Aerobic exercise to reduce BP. Initial goal of 30 min walk 3-5x/week. Increase as tolerated. - low-sodium diet (goal: <2g/day) and heart healthy diet such as DASH to reduce BP and prevent ASCVD. - Home BP monitoring 1-2 x day with goal of <140/90. - Seek immediate medical attention for chest pain, palpitations, SOB, syncope, or sudden changes in mental status. - Do not change or discontinue current prescriptions without first consulting health care provider Assessment & Plan (06/09/2023 9:52 PM EDT): ?? Well controlled ?? Continue current regimen ?? QT prolongation borderline c/w methadone use. Pt plans to taper off methadone and will discuss with methadone clinic at upcoming appointment Assessment & Plan (02/06/2023 4:36 PM EDT): ?? Well controlled ?? Continue current regimen Gout 02/14/2017 Overview (02/06/2023): ?? Allopurinol for prevention Resolved Problems Problem Noted Date Diagnosed Date Resolved Date Closed anterior displaced fr acture of sternal end of right clavicle 04/03/2024 07/02/2024 Assessment & Plan (04/03/2024 5:14 PM EDT): Stop ibuprofen Toradol Im today then start diclofenac tomorrow I increase gabapentin to 600mg TID Acetaminophen 1000mg Q 8hrs PRN Lidocaine patch daily I explain patient that because he is on high dose of methadone and on top of that QTc prolongation I do not feel its safe to prescribe opioids today Closed fracture of phalanx o f right little finger 04/03/2024 07/02/2024 Preoperative clearance 12/08/202307/02 Assessment & Plan (12/08/2023 1:21 PM EST): 63 yo patient with multiple medical conditions here for preop evaluation. Most of his medical conditions are stable enough so that she/he can safely undergo planned procedure. He is a LOW risk patient He's undergoing an INTERMEDIATE risk procedure. At this time HE IS ON OPTIMAL CONDITION for planned procedure. -Meds adjusted for the day of surgery: Take only methadone and Spiriva inhaler on the morning of surgery. -Avoid opiate use due to high tolerance and risk of overdose. -Needs EKG monitoring during surgery due to QT prolongation (related to methadone) and risk of arrhthymias, his electrolytes are normal. -Call back CRIST[facility] should he develops fever, cough, SOB, CP, UTI sxs or any other acute issue Venous insufficiency 11/18/2022 023 Left hydrocele 03/23/2018 07/02/2024 Graves' disease 02/28/2017 12/29/2022 Encounters Date Type Department Care Team Description 11/10/2024 Refill [facility] [address] [place] [address] Fay Klein NP Shortness of breath 10/08/2024 Refill [facility] [address] [place] [address] AntoineNyasia FNP Shortness of breath 09/08/2024 Refill [facility] [address] [place] [address] AntoineNyasia FNP Shortness of breath from Last 3 Months Immunizations Name Administration Dates Next Due Influenza Injectable Quadriv alant Preservative Free IIV4 MDCK 07/01/2023,07/02/2022,06/21/2021,07/11,06/29/2018 Influenza injectable quadriv alent preservative free 06/07/2020,06/20/2017 Influenza, IIV3, injectable 08/12/2016, 5,09/27/2014 Influenza, Injectable, MDCK, preservative free 07/23/2015 Influenza, seasonal, injecta ble, preservative free 06/29/2024 Pfizer Covid-19 Vaccine 12+ 06/29/2024 Pneumococcal Conjugate PCV 13 06/20/2017 Pneumococcal Conjugate PCV 20 05/19/2023 Pneumococcal Polysaccharide PPSV23 01/28/2016 RSV Adjuvant 09/25/2023 Tdap 08/05/2021,09/17/2015 Zoster, Recombinant 12/07/2019,09/19/2019 Family History Medical History Relation Name Comments Heart attack Father Lung cancer Mother Relation Name Status Comments Father Mother Social History Tobacco Use Types Packs/Day Years Used Date Smoking Tobacco: Former Cigarettes Smokeless Tobacco: Current Tobacco Cessation:Ready to Q uit: Not Asked; Counseling Given: Not Answered Comments:Vapes Alcohol Use Standard Drinks/Week Comments Not Currently 2 (1 standard drink = 0.6 oz pur e alcohol) Rare Occassions Depression Answer Date Recorded Patient Health Questionnaire-9 Score 0 06/29/2024 Patient Health Questionnaire-9 Score 0 06/29/2024 Last PHQ-9: Questionnaire Data Not on file 0 06/29/2024 Housing Stability Answer Date Recorded What is [...] t he electric, gas, oil or water company threatened to shut off services in your home? No 07/25/2023 Depression Answer Date Recorded Patient Health Questionnaire-2 Score 0 06/29/2024 Sex and Gender Information Value Date Recorded Sex Assigned at Male 08/12/2022 6:04 PM EDT Legal Sex Male 5:36 PM EDT Gender Identity Male 08/12/2022 6:04 PM EDT Sexual Orientation Straight 08/12/2022 6: 04 PM EDT Last Filed Vital Signs Vital Sign Reading Time Taken Comments Blood Pressure 133/75 06/29/2024 10:17 AM EDT Pulse 74 06/29/2024 10:17 AM EDT Temperature 36.8 ??C (98.2 ??F) 06/29/2024 10:17 AM E DT Respiratory Rate 20 06/29/2024 10:17 AM EDT Oxygen Saturation 97% 12/08/2023 11:00 AM EST Inhaled Oxygen Concentration - - Weight 102 kg (223 lb 12.8 oz) 06/29/2024 10:17 AM EDT Height 172.7 cm (5' 8 ) 06/29/2024 10:17 AM EDT Body Mass Index 34.03 06/29/2024 10:17 AM EDT Plan of Treatment Upcoming Encounters Date Type Department Care Team (Late st Contact Info) Description 11/15/2024 8:30 AM EST Office Visit [place] [facility] [address] [place] [address] Monse Ortiz 12/28/2024 10:00 AM EDT Office Visit [facility] [address] [place], [place] [phone] Antoine, JASMINE MurrellP [address] [place], [place] [phone] Health Maintenance Due Date Last Done Comments CT Colonography 1962 FIT DNA/Cologuard 1962 FIT 1962 FOBT 1962 Sigmoidoscopy 1962 Alcohol/Substance Use Screening 1974 SDOH Screening 12/29/2023 12/28/2022 Dental Oral Exam 02/28/2024 08/29/2023, 11/2021, 02/10/2017, Additional history exists Dental X-Ray: Bitewings 08/30/2024 08/29/20, 02/08/2022, 02/10/2017, Additional history exists Dental Prophylaxis 09/27/2024 03/27/2024, 1 10/29/2022, 02/08/2022, Additional history exists Dental X-Ray: Full Mouth 02/09/2025 02/08/2022, 04/06/2015 Depression Screening 06/29/2025 06/29/2024, 06/29/20 Tobacco Screening 07/02/2025 07/02/2024 Lipid Panel 11/22/2027 11/22/2022, 02/12/2021 DTaP/Tdap/Td Vaccines (3 - Td or Tdap) 08/05/2031 08/05/2021, 09/17/2015 Colonoscopy 01/08/2034 01/09/2024, 01/29/2015 Colorectal Cancer Screening 01/08/2034 Zoster Vaccines Completed 12/07/2019, 09/19/2019 HIV Screening Completed 11/22/2022 Hepatitis C Screening Completed 11/22/2022, 023 Pneumococcal Vaccine: 50+ Years Completed 05/19/2023, 06/20/2017, 01/28/2016 RSV Patients and Patients Aged 60 years or older Completed 09/25/2023 COVID-19 Vaccine Completed 06/29/2024, , 07/02/2022, Additional history exists Influenza Vaccine Completed 06/29/2024, , 07/02/2022, Additional history exists HIB Vaccines Aged Out No longer eligi ble based on patient's age to complete this topic HPV Vaccines Aged Out No longer eligi ble based on patient's age to complete this topic Hepatitis A Vaccines Aged Out No long er eligible based on patient's age to complete this topic Hepatitis B Vaccines Aged Out No long er eligible based on patient's age to complete this topic IPV Vaccines Aged Out No longer eligi ble based on patient's age to complete this topic Meningococcal Vaccine Aged Out No monae sammy eligible based on patient's age to complete this topic RSV under 20 months Aged Out No longe r eligible based on patient's age to complete this topic Rotavirus Vaccines Aged Out No longer eligible based on patient's age to complete this topic Procedures Procedure Name Priority Date/Time Associated Diagnosis Comments Full PROPHYLAXIS - ADULT Routine 03/27/2024 2:00 PM EDT COLONOSCOPY Routine 01/09/2024 BITEWINGS - 4 RADIOGRAPHIC IMAGES Routine 08/29/2023 8:00 AM EST PERIODIC ORAL EVALUATION - ESTABLISHED PATIENT Routine 08/29/2023 8:00 AM EST HEPATITIS C AB W/REFL TO HCV RNA, QN, PCR Routine 11/22/2022 8:53 AM EST Routine health maintenance HIV 1 RNA, QN PCR W/RFL JANI (RTI,PI,INTEGRASE) Routine 11/22/2022 8:53 AM EST Routine health maintenance LIPID PANEL, STANDARD Routine 11/22/2022 8:53 AM EST Routine health maintenance DIAGNOSTIC - DIAGNOSTIC IMAGING - INTRAORAL - COMPREHENSIVE SERIES OF RADIOGRAPHIC IMAGES Routine 02/08/2022 12:00 AM EDT from Last 3 Months or Most Recently Relevant to Health Maintenance Results * Hm Colonoscopy (01/09/2024) Colonoscopy Normal Normal Comment:negative with 10 yea r follow up 01/09/2024 Historical Provider MD HEALTH MAINTENANCE Final Result * HIV-1 RNA, Quantitative, Real-Time PCR with Reflex to Genotype (RTI, PI, Integrase) (11/22/2022 8:53 AM EST) HIV 1 RNA, QN PCR NOT DETECTED copies/mL [facility], HIV 1 RNA, QN PCR NOT DETECTED Log copies/mL [facility], Comment: REFERENCE RANGE: NOT DETECTED copies/mL ?NOT DETECTED ??Log copies/mL This test was performed using Real-Time Polymerase Chain Reaction. Reportable range is 20 to 10,000,000 copies/mL (1.30-7.00 Log copies/mL). 11/22/2022 8:53 AM EST 11/22/2022 8:53 AM EST Narrative [facility] - 12/02/2022 11:57 PM EST FASTING:YES FASTING: YES Rica Haider [employer] LAB BLOOD ORDERABLES Final Res ult [facility] [address], [place] [address] [facility], [address] [place] [address] * (ABNORMAL) Hepatitis C Antibody with Reflex to HCV, RNA, Quantitative, Real- Time PCR (11/22/2022 8:53 AM EST) Pathologist [facility] Hepatitis C Antibody BORDERLIN E(A) NON-REACT KELLY [employer] [place] [facility] Index 0.95 <1.00 [employer] [place] [facility] Comment: HCV antibody was non-reactive. There is no laboratory evidence of HCV infection. In most cases, no further action is required. However, if recent HCV exposure is suspected, a test for HCV RNA (test code 97679) is suggested. For additional information please refer to http://[employer].Black House/faq/OAW80k2 (This link is being provided for informational/ educational purposes only.) Blood Venous blood specimen / Unknown 11/22/2022 8:53 AM EST 11/22/2022 8:53 AM EST Narrative [facility] - 12/02/2022 11:57 PM EST FASTING:YES FASTING: YES us Rica Haider [facility] LAB BLOOD ORDERABLES Final Res ult [address], [facility], [place] [address] [employer] [place] [employer] [address] [facility], [address]) [place] [address] * Lipid Panel, Standard (11/22/2022 8:53 AM EST) [facility] Cholesterol, Total 141 <200 mg/dL [employer] [place] [facility] HDL Cholesterol 60 > OR = 40 mg/dL [employer] [place] [facility] Triglycerides 131 <150 mg/dL [employer] [place] [facility] LDL Cholesterol 60 mg/dL (calc) [employer] [place] [facility] Comment: Reference range: <100 Desirable range <100 mg/dL for primary prevention; ?? <70 mg/dL for patients with CHD or diabetic patients with > or = 2 CHD risk factors. LDL-C is now calculated using the Ryan calculation, which is a validated novel method providing better accuracy than the Friedewald equation in the estimation of LDL-C. Ronald PIERCE et al. DAFNE. 2013;310(19): 0527-9104 (http://education.[employer].Beatrobo/faq/LYL729) Chol/HDLC Ratio 2.4 <5.0 (calc) [facility] Non-HDL Cholesterol 81 <130 mg/dL (calc) [facility] Comment: For patients with diabetes plus 1 major ASCVD risk factor, treating to a non-HDL-C goal of <100 mg/dL (LDL-C of <70 mg/dL) is considered a therapeutic option. Blood Venous blood specimen / Unknown 11/22/2022 8:53 AM EST 11/22/2022 8:53 AM EST Narrative [facility] - 12/02/2022 11:57 PM EST FASTING:YES FASTING: YES Rica Haider [employer] LAB BLOOD ORDERABLES Final Res ult [facility] [address], [place] [address] [facility] [address] [facility], [address]) [place] [address] from Last 3 Months or Most Recently Relevant to Health Maintenance Insurance [employer] MEDICARE REPLACEMENT DENTAL - [employer] DENTAL Care Teams Valuation Consultant Relationship Specialty Start Date End Date Nyasia Baum FNP [address] [place] [phone] PCP - General Family Medicine 09/08/22
--- OUTSIDE RECORDS SUMMARY | 2024-11-13 09:55 | XMS_ITS | Encounter Summary ---
Author Organization [employer] Address [address] [place] [address] Care Team Providers Care Billet Worker Name Role Phone Cristian Kilgore MD Primary Care Provider Unava Nyasia Trammell Primary Care Provider Encounter Details Date Type Department Care Team (Latest Contact Info) Description 02/08/2022 Abstract [facility] CONVERSIONS Dental, Provider, DDS Social History Tobacco Use Types Packs/Day Years [...] Description 11/15/2024 8:30 AM EST Office Visit [facility] [address] [place] [phone] Monse Ortiz 12/28/2024 10:00 AM EDT Office Visit [facility] [address] [place] [address] [facility] [address] [place], [place] [phone] documented as of this encounter Visit Diagnoses Not on filedocumented in this encounter Care Teams Billet Worker Relationship Specialty Start Date End Date Cristian Kilgore MD PCP - General Family Medicine 03/28/20 09/07/22 Nyasia Baum FNP [address] [place] [address] PCP - General Family Medicine 09/08/22 documented as of this encounter
--- OUTSIDE RECORDS SUMMARY | 2024-11-13 09:55 | XMS_ITS | Encounter Summary ---
Author Organization [employer] Address [address] [place] [address] Care Team Providers Care Winch Derrick Operator Name Role Phone Orange [facility] Primary Care Provider [phone] Reason for Visit * Reason Onset Date Comments Appointment Request 10/27/2022 Encounter Details Date Type Department Care Team ([facility] st Contact Info) Description 10/27/2022 Telephone [facility] [address] [place], [place] [phone] [facility] [address] [place] [address] Appointment Request Social History Tobacco Use Types Packs/Day Years Used Date Smoking Tobacco: Never Assessed Depression Answer Date Recorded Patient Health Questionnaire-9 [...] Orientation Straight 08/12/2022 6: 04 PM EDT COVID-19 Exposure Response Date Recorded In the last 10 days, have andrew u been in contact with someone who was confirmed or suspected to have Coronavirus/COVID-19? No / Unsure 02/03/2023 9:51 AM EDT documented as of this encounter Miscellaneous Notes * Telephone Encounter - Tip Landaverde - 10/27/2022 10:12 AM EST Tc from pt requesting to schedule an appt with PCP however pt needs a TP from Dr. Kilgore. Please contact at [phone] documented in this encounter Plan of Treatment Upcoming Encounters Date Type Department Care Team (Late st Contact Info) Description 11/15/2024 8:30 AM EST Office Visit [place] [facility] [address] [place] [phone] Monse Ortiz 12/28/2024 10:00 AM EDT Office Visit [facility] [address] [place] [address] Nyasia Baum FNP [address] [place] [address] documented as of this encounter Visit Diagnoses Not on filedocumented in this encounter Care Teams Winch Derrick Operator Relationship Specialty Start Date End Date Nyasia Baum FNP [address] [place] [address] PCP - General Family Medicine 09/08/22 documented as of this encounter
--- OUTSIDE RECORDS SUMMARY | 2024-11-13 09:55 | XMS_ITS | Encounter Summary ---
Author Organization [employer] Address [address] [facility] 7t [place] [address] Care Team Providers Care Associate Manager Affiliate Marketing Name Role Phone [facility] Primary Care Provider Encounter Details Date Type Department Care Team ([facility] st Contact Info) Description 04/06/2024 Telephone [facility] [address] [place], [place] [phone] [place] [facility] [address] [place] [address] Social History Tobacco Use Types Packs/Day Years Used Date Smoking Tobacco: Former Cigarettes Smokeless Tobacco: Current Comments:Vapes Alcohol Use Standard Drinks/Week Comments Not [...] Description 11/15/2024 8:30 AM EST Office Visit [place] [facility] D[facility] [address] [place] [address] Monse Ortiz 12/28/2024 10:00 AM EDT Office Visit [facility] 230 [place] [address] Nyasia Baum FNP 230 [place] [address] documented as of this encounter Visit Diagnoses Not on filedocumented in this encounter Additional Health Concerns Assessment Noted Time PHQ-9 Depression Total Score: 0 02/04/20 23 10:19 AM EDT documented as of this encounter Care Teams Associate Manager Affiliate Marketing Relationship Specialty Start Date End Date Nyasia Baum FNP [address] [place] [address] PCP - General Family Medicine 09/08/22 documented as of this encounter
--- OUTSIDE RECORDS SUMMARY | 2024-11-13 09:55 | XMS_ITS | Encounter Summary ---
Author Organization [email or web address] Address [address] [place] [address] 7 [place] [address] Care Team Providers Care Liquified Natural Gas Specialist Name Role Phone [facility] Primary Care Provider [phone] Reason for Visit * Reason Onset Date Comments Durable Medical Equipment 12/15/2022 Encounter Details Date Type Department Care Team (Late st Contact Info) Description 12/15/2022 Telephone [facility] MED[facility]INE [address] [place], [place] [phone] [facility] 230 [place] [address] Durable Medical Equipment Social History Tobacco Use Types Packs/Day Years Used Date Smoking Tobacco: Every Day Cigarettes Smokeless Tobacco: Never Comments:Vapes Alcohol Use Standard Drinks/Week Comments Yes 2 (1 standard drink = 0.6 oz pur e alcohol) Rare Occassions Sex and Gender Information Value Date Recorded Sex Assigned at Male 08/12/2022 6:04 PM EDT Legal Sex Male 5:36 PM EDT Gender Identity Male 08/12/2022 6:04 PM EDT Sexual Orientation Straight 08/12/2022 6: 04 PM EDT COVID-19 Exposure Response Date Recorded In the last 10 days, have yo u been in contact with someone who was confirmed or suspected to have Coronavirus/COVID-19? No / Unsure 11/19/2022 8:58 AM EST documented as of this encounter Miscellaneous Notes * Telephone Encounter - Cristiane Smiley - 12/15/2022 10:20 AM EST TC to caregiver services home and provided the number for sleep medicine where they monitor patient SANTOSH. * Telephone Encounter - Brandon Esteves - 12/15/2022 9:38 AM EST Tc from devang with [facility] caregiver services home Requesting a script for a cpap machine for pt requesting to be faxed over to [facility] fax# [phone] Please contact devang with [facility] at [phone] documented in this encounter Plan of Treatment Upcoming Encounters Date Type Department Care Team (Late st Contact Info) Description 11/15/2024 8:30 AM EST Office Visit [place] [facility] D[facility] [address] [place] [address] Monse Ortiz 12/28/2024 10:00 AM EDT Office Visit [facility] [address] [place] [address] Nyasia Baum FNP 230 [place] [address] documented as of this encounter Visit Diagnoses Not on filedocumented in this encounter Care Teams Liquified Natural Gas Specialist Relationship Specialty Start Date End Date Nyasia Baum FNP 230 [place] [address] PCP - General Family Medicine 09/08/22 documented as of this encounter
--- OUTSIDE RECORDS SUMMARY | 2024-11-13 09:55 | XMS_ITS | Continuity of Care Document ---
Author Organization [facility] Address [address] [place] [address]- Care Team Providers Care Nuclear Technologist Name Role Phone [place] EMBOSSER APPRENTICE, Nyasia Primary Care Physician Encounter [facility] Date(s): 09/30/24 - 10/30/24 [facility] [address] [place] [address] Encounter Type: Triage Allergies, Adverse Reactions, Alerts Substance Criticality Severity Reaction Reaction Severity Status Ultra [facility] siezure Ac tive traMADol Active Immunizations [...] EST, Route to Pharmacy Electronically, [id number], 172.7, cm, 04/05/24 8:46:00 EDT, [...] Name: Mary Ellen Quesada RN Position: [facility] Hospital Well Site Drilling Engineer Member Role: Primary Care Nurse Name: Pat Holt RN Position: [facility] RN Member Role: Primary Care Nurse Name: Nyasia Baum NP Position: Reference Physician Member Role: PCP Address: [address] [place] [place] [address] Telecom: Care Team Related Persons Name: CAPRI ARROYO Insurance Providers Guarantor name: SHERYL ARROYO Health Plan Information #: 1 Payer: [employer] Member Number: NA Policy Number: NA Group Number: NA
--- OUTSIDE RECORDS SUMMARY | 2024-11-13 09:55 | XMS_ITS | Encounter Summary ---
Author Organization [employer] Address [address] [facility] 7t [place] [address] Care Team Providers Care Small Craft Operator Name Role Phone [facility] Primary Care Provider [phone] Reason for Visit * Reason Comments Med Refill Encounter Details Date Type Department Care Team (Late st Contact Info) Description 11/10/2024 Refill [facility] 230 [place], [place] [phone] Fay Klein, GERMÁN 230 [place], [place] [phone] Shortness of breath Social History Tobacco Use Types Packs/Day Years [...] Description 11/15/2024 8:30 AM EST Office Visit [place] [facility] [address] [place] [address] Monse Ortiz 12/28/2024 10:00 AM EDT Office Visit [facility] 230 [place] [address] Nyasia Baum FNP 230 [place] [address] documented as of this encounter Visit Diagnoses Diagnosis Shortness of breath documented in this encounter Additional Health Concerns Assessment Noted Time PHQ-9 Depression Total Score: 0 06/29/20 24 10:18 AM EDT documented as of this encounter Care Teams Small Craft Operator Relationship Specialty Start Date End Date Nyasia Baum FNP [address] [place] [address] PCP - General Family Medicine 09/08/22 documented as of this encounter
== END 2024-11-13 09:54 | disposition home or self-care (01) ==
PROVIDERS: PCP Registered Nurse; Visit Provider Internal Medicine
DX: J44.9 Chronic obstructive pulmonary disease, unspecified (principal); R06.09 Other forms of dyspnea; G47.33 Obstructive sleep apnea (adult) (pediatric)
CPT/HCPCS: 99214

== ENCOUNTER → 2024-11-13 09:24 | Outpatient (BNVA) | payer MEDICARE, SELFPAY | PROVIDERS: PCP Registered Nurse; Visit Provider Internal Medicine | DX: J44.9 Chronic obstructive pulmonary disease, unspecified (principal); G47.33 Obstructive sleep apnea (adult) (pediatric); R06.09 Other forms of dyspnea | CPT/HCPCS: 99212 ==

== ENCOUNTER → 2024-12-04 19:30 | Outpatient (REF) | payer MEDICARE, SELFPAY ==
--- OUTSIDE RECORDS SUMMARY | 2024-12-04 21:08 | XMS_ITS | Encounter Summary ---
Author Organization [employer] Address [address] [facility] 7 [place] [address] Care Team Providers Care Automobile Mechanic Supervisor Name Role Phone [facility] Primary Care Provider [phone] Reason for Visit * Reason Comments Med Refill Encounter Details Date Type Department Care Team (Late st Contact Info) Description 11/16/2024 Refill [facility] [address] [place], [place] [phone] [facility] 230 [place], [place] [phone] Benign hypertension Social History Tobacco Use Types Packs/Day Years [...] Care Team (Late st Contact Info) Description 12/28/2024 10:00 AM EDT Office Visit [facility] [address] [place] [address] Nyasia Baum FNP 230 [place] [address] documented as of this encounter Visit Diagnoses Diagnosis Benign hypertension Essential hypertension, benign documented in this encounter Additional Health Concerns Assessment Noted Time PHQ-9 Depression Total Score: 0 06/29/20 24 10:18 AM EDT documented as of this encounter Care Teams Automobile Mechanic Supervisor Relationship Specialty Start Date End Date Nyasia Baum FNP [address] [place] [address] PCP - General Family Medicine 09/08/22 documented as of this encounter
--- OUTSIDE RECORDS SUMMARY | 2024-12-04 21:08 | XMS_ITS | Encounter Summary ---
Author Organization [email or web address] Address [address] [place] [address] 7 [place] [address] Care Team Providers Care Corrugated Fastener Driver Name Role Phone Sarika, [facility] Primary Care Provider [phone] Encounter Details Date Type Department Care Team (Late st Contact Info) Description 11/15/2022 Orders Only [facility] [address] [place], [place] [phone] Abigail Wilkins LPN Social History Tobacco Use [...] Description 12/28/2024 10:00 AM EDT Office Visit [facility] MED[facility] 230 [place], [place] [phone] [facility] [address] [place] [address] documented as of this encounter Procedures Procedure [...] EST) VBG pH 7.41 7.32 - 7.43 [facility] VBG PCO2 53 mmHg [facility] PO2 34 mmHg [facility] VBG Base Excess 8.1 mmol/L [facility] VBG HCO3 34(H) 22 - 26 mmol/L [facility] O2 Sat, Reji 48.0 % [facility] 09/26/2023 10:5 8 AM EST 09/26/2023 11:27 AM EST Generic External Data Provider LAB BLOOD ORDERAB LES Final Result Performing Organization Address [facility] Co de Phone Number [facility] [address] [place] [address] [phone] * T4, Free (09/05/2023 10:06 AM EST) Free T4 (Free Thyroxine) 0.87 0.71 - 1.85 ng/dL [facility] 09/05/2023 10:0 6 AM EST 09/05/2023 11:20 AM EST [facility] RETIREMENT SPECIALIST LAB BLOOD ORDERABLES Final Re sult Performing Organization Address [facility] Co de Phone Number [facility] [address] [place] [address] [phone] * CT Abdomen Pelvis w/ Contrast (12/15/2022 12:40 PM EST) Anatomical Region Laterality Modality Body, Pelvis, Abdomen Computed T omography 12/15/2022 12:4 0 PM EST Narrative 12/20/2022 2:28 PM EDT ? [facility] ?[address] ?[place] [address] ? CT Scan Report ? Signed ? Patient: Pierre,Victor Manuel ?MR#: [id number] ?? [id number] ? : 1960 ?Acct:[id number] ? Age/Sex: 62 / M ?ADM Date: 12/15/22 ? Loc: HO.CT ? Attending Dr: Rica DELGADO ? Ordering Physician: Rica Haider ?? Date of Service: 12/15/22 ?? Procedure(s): CT abdomen pelvis w IV con ?? Accession Number(s): [id number] ? cc: Rica Haider ? EXAMINATION: ?? [...] 1425 ? DD/ 1240 ? TD/TT: ? Core Dropper: SS ? Procedure Note Jaylene Cano - 12/20/[address] [address] [address] Scan Report Signed Patient: Victor Manuel JayMR#: [id number] : 2Acct:[id number] Age/Sex: 62 / MADM Date: 12/15/22 Loc: .CT Attending Dr: Rica Haider RETIREMENT SPECIALIST Ordering Physician: Rica Haider Date of Service: 12/15/22 Procedure(s): CT abdomen pelvis w IV con Accession Number(s): [id number] cc: Rica Haider EXAMINATION: CT ABDOMEN AND [...] in OV> 12/20/22 1425 DD/ 1240 TD/TT: Core Dropper: K[facility] External Provider IMG CT PROCEDURES Edited Result - Final * POCT Creatinine GFR (12/15/2022 11:22 AM EST) POCT Creatinine 0.6 0.5 - 1.4 mg/dL [facility] GFR POC 60 [facility] Comment:Chronic Kidney Disea se: Estimated GFR < 60 mL/min/1.09i8Plkyma Kidney Disease: Estimated GFR < 15 mL/min/1.73m2 12/15/2022 11:2 2 AM EST 12/15/2022 2:40 PM EST Narrative [facility] - 12/15/2022 2:42 PM EST [id number] [facility] Exter nal Provider LAB POINT OF CARE TEST DOCKED DEVICE ORDERABLES Final Result [facility] [address] [place] [address] [phone] documented in this encounter Visit Diagnoses Not on filedocumented in this encounter Care Teams Corrugated Fastener Driver Relationship Specialty Start Date End Date Nyasia Baum FNP [address] [place] [address] PCP - General Family Medicine 09/08/22 documented as of this encounter
--- OUTSIDE RECORDS SUMMARY | 2024-12-04 21:08 | XMS_ITS | Encounter Summary ---
Author Organization [employer] Address [address] [place] [address] 7 [place] [address] Care Team Providers Care Child Day Care Provider Name Role Phone [facility] Primary Care Provider [phone] Reason for Visit * Reason Onset Date Comments Durable Medical Equipment 12/15/2022 Encounter Details Date Type Department Care Team (Late st Contact Info) Description 12/15/2022 Telephone [facility] MEDICINE [address] [place], [place] [phone] [facility] 230 [place] [address] Durable Medical Equipment Social History Tobacco Use [...] - 12/15/2022 10:20 AM EST TC to career based intervention coordinator and provided the number for sleep medicine where they monitor patient SANTOSH. * Telephone Encounter - Brandon Esteves - 12/15/2022 9:38 AM EST Tc from devang with [facility] career based intervention coordinator Requesting a script for a cpap machine for pt requesting to be faxed over to [facility] fax# [phone] Please contact devang with [facility] at [phone] documented in this encounter Plan of Treatment Upcoming Encounters Date Type Department Care Team (Late st Contact Info) Description 12/28/2024 10:00 AM EDT Office Visit [facility] [address] [place] [address] Nyasia Baum FNP [address] [place] [address] documented as of this encounter Visit Diagnoses Not on filedocumented in this encounter Care Teams Child Day Care Provider Relationship Specialty Start Date End Date Nyasia Baum FNP [address] [place] [address] PCP - General Family Medicine 09/08/22 documented as of this encounter
--- OUTSIDE RECORDS SUMMARY | 2024-12-04 21:08 | XMS_ITS | Encounter Summary ---
Author Organization [employer] Address [address] [facility] 7 [place] [address] Care Team Providers Care Demonstrator Sewing Techniques Name Role Phone [facility] Primary Care Provider [phone] Reason for Visit * Reason Onset Date Comments Nurse Triage 11/16/2024 Encounter Details Date Type Department Care Team ([facility] st Contact Info) Description 11/16/2024 Telephone [facility] 230 [place], [place] [phone] [facility] 230 [place] [address] Nurse Triage Social History Tobacco Use Types Packs/Day Years [...] PM EDT documented as of this encounter Miscellaneous Notes * Telephone Encounter - Daniela Petersen LPN - 11/16/2024 4:01 PM EST Patient calling to report a lump in the crease of his groin not in testicle but near to scrotum best as explained. No redness or pus drainage.Area is the size of a marble. Tender to touch. No recent lifting or pushing. Area does not reduce with palpation. Lump feels firm. No fever and no use of OTCmedications.No nausea or vomiting reported. Disposition reviewed and patient in agreement with plan. ASK/WIJamal/ tomorrow morning at 920am as scheduled per protocol. Protocol Used: Skin Lump or Localized Swelling (Adult) Protocol-Based Disposition: See in Office or Video Visit within 3 Days Positive Triage Question: * Patient wants to be seen * All higher-acuity triage questions were negative Care Advice Discussed: * Reasons To Call Back - Fever occurs - You become worse * Telephone Encounter - Amee Carrero - 11/16/2024 3:49 PM EST Symptom: Fall (2 days ago) Outcome: Schedule an appointment to be seen within 24 hours Reason: Caller denied all higher acuity questions The caller accepted this outcome. [phone] documented in this encounter Plan of Treatment Upcoming Encounters Date Type Department Care Team (Late st Contact Info) Description 12/28/2024 10:00 AM EDT Office Visit [facility] [address] [place] [address] Nyasia Baum FNP [address] [place] [address] documented as of this encounter Visit Diagnoses Not on filedocumented in this encounter Additional Health Concerns Assessment Noted Time PHQ-9 Depression Total Score: 0 06/29/20 24 10:18 AM EDT documented as of this encounter Care Teams Demonstrator Sewing Techniques Relationship Specialty Start Date End Date Nyasia Baum FNP [address] [place] [address] PCP - General Family Medicine 09/08/22 documented as of this encounter
--- OUTSIDE RECORDS SUMMARY | 2024-12-04 21:08 | XMS_ITS | Encounter Summary ---
Author Organization [employer] Address [address] [place] [address] Care Team Providers Care Tire Groover Name Role Phone Cristian Kilgore MD Primary Care Provider Unava ilNyasia Hay [facility] Primary Care Provider [phone] Encounter Details Date Type Department Care Team [...] Upcoming Encounters Date Type Department Care Team ( st Contact Info) Description 12/28/2024 10:00 AM EDT Office Visit [facility] MEDICINE [address] [place] [address] Nyasia Baum [facility] [address] [place] [address] documented as of this encounter Visit Diagnoses Not on filedocumented in this encounter Care Teams Tire Groover Relationship Specialty Start Date End Date Cristian Kilgore MD PCP - General Family Medicine 03/28/20 09/07/22 Nyasia Baum FNP [address] [place] [address] PCP - General Family Medicine 09/08/22 documented as of this encounter
--- OUTSIDE RECORDS SUMMARY | 2024-12-04 21:08 | XMS_ITS | Encounter Summary ---
Author Organization [employer] Address [address] [facility] 7t [place] [address] Care Team Providers Care Forklift Truck Operator Name Role Phone [facility] Primary Care Provider [phone] Encounter Details Date Type Department Care Team ([facility] st Contact Info) Description 04/06/2024 Telephone [facility] MED[facility] 230 [place], [place] [phone] [facility] [address] [place] [address] Social History Tobacco Use Types Packs/Day Years [...] Description 12/28/2024 10:00 AM EDT Office Visit [facility] MED[facility] [address] [place] [address] Nyasia Baum FNP [address] [place] [address] documented as of this encounter Visit Diagnoses Not on filedocumented in this encounter Additional Health Concerns Assessment Noted Time PHQ-9 Depression Total Score: 0 02/04/20 23 10:19 AM EDT documented as of this encounter Care Teams Forklift Truck Operator Relationship Specialty Start Date End Date Nyasia Baum FNP [address] [place] [address] PCP - General Family Medicine 09/08/22 documented as of this encounter
--- OUTSIDE RECORDS SUMMARY | 2024-12-04 21:08 | XMS_ITS | Encounter Summary ---
Author Organization [employer] Address [address] [facility] 7t [place] [address] Care Team Providers Care Audio Visual Design Engineer Name Role Phone [facility] [place] SOCIAL WELFARE ADMINISTRATOR Primary Care Provider [phone] Reason for Visit * Reason Comments Walk-In Lump in groin Encounter Details Date Type Department Care Team ([facility] st Contact Info) Description 11/17/2024 9:00 AM EST Office Visit [facility] 230 [place] [address] Jairo Bales MD [address] [place] [address] Skin infection (Primary Dx); Dietary counseling; Exercise counseling Social History Tobacco Use Types Packs/Day Years [...] PM EDT documented as of this encounter Last Filed Vital Signs Vital Sign Reading Time Taken Comments Blood Pressure 128/79 11/17/2024 9:04 AM EST Pulse 79 11/17/2024 9:04 AM EST Temperature 36.6 ??C (97.9 ??F) 11/17/2024 9:04 AM ES T Respiratory Rate 18 11/17/2024 9:04 AM EST Oxygen Saturation 100% 11/17/2024 9:04 AM EST Inhaled Oxygen Concentration - - Weight 108 kg (238 lb) 11/17/2024 9:04 AM EST Height 177.8 cm (5' 10 ) 11/17/2024 9:04 AM EST Body Mass Index 34.15 11/17/2024 9:04 AM EST documented in this encounter Progress Notes * Jairo Wiley MD - 11/17/2024 9:00 AM EST Subjective Patient ID: Victor Manuel Jay is a 64 y.o. male who presents for Walk-In (Lump in groin). HPI Patient was seen on office for a groin skin infection Review of Systems Constitutional: Negative for chills, fatigue and fever. Respiratory: Negative for cough and shortness of breath. Cardiovascular: Negative for chest pain. Objective Physical Exam Constitutional: Appearance: Normal appearance. Cardiovascular: Rate and Rhythm: Normal rate. Skin: Findings: Lesion present. Neurological: General: No focal deficit present. Mental Status: He is alert and oriented to person, place, and time. Psychiatric: Mood and Affect: Mood normal. Behavior: Behavior normal. Assessment/Plan Problem List Items Addressed This Visit None Visit Diagnoses Skin infection - Primary Right groin/testicular skin infection, no fever/chills, started about 3-4 days ago, area is indurated, will prescribe augmentin for 7 days, call back if not improving Dietary counseling Exercise counseling documented in this encounter Plan of Treatment Upcoming Encounters Date Type Department Care Team (Late st Contact Info) Description 12/28/2024 10:00 AM EDT Office Visit [facility] 230 [place] [address] Nyasia Baum FNP 230 [place] [address] documented as of this encounter Visit Diagnoses Diagnosis Skin infection- Primary Unspecified local infection of skin and subcutaneous tissue Dietary counseling Dietary surveillance and counseling Exercise counseling documented in this encounter Additional Health Concerns Assessment Noted Time PHQ-9 Depression Total Score: 0 06/29/20 24 10:18 AM EDT documented as of this encounter Care Teams Audio Visual Design Engineer Relationship Specialty Start Date End Date Nyasia Baum FNP [address] [place] [address] PCP - General Family Medicine 09/08/22 documented as of this encounter
--- OUTSIDE RECORDS SUMMARY | 2024-12-04 21:08 | XMS_ITS | Encounter Summary ---
Author Organization [employer] Address [address] [facility] 7t [place] [address] Care Team Providers Care Crusher Dry Ground Mica Name Role Phone [place] [facility] Primary Care Provider [phone] Reason for Visit * Reason Comments Med Refill Encounter Details Date Type Department Care Team (Late st Contact Info) Description 11/10/[address] [facility] MED[facility]INE 230 [place], [place] [phone] Fay Klein, GERMÁN 230 [place], [place] [phone] Shortness of breath Social History Tobacco Use [...] Description 12/28/2024 10:00 AM EDT Office Visit [facility] MED[facility] 230 [place] [address] Nyasia Baum FNP [address] [place] [address] documented as of this encounter Visit Diagnoses Diagnosis Shortness of breath documented in this encounter Additional Health Concerns Assessment Noted Time PHQ-9 Depression Total Score: 0 06/29/20 24 10:18 AM EDT documented as of this encounter Care Teams Crusher Dry Ground Mica Relationship Specialty Start Date End Date Nyasia Baum FNP [address] [place] [address] PCP - General Family Medicine 09/08/22 documented as of this encounter
--- OUTSIDE RECORDS SUMMARY | 2024-12-04 21:08 | XMS_ITS | Clinical Summary ---
Author Organization [employer] Address [address] [place] [address] 7[address] [place] [address] Care Team Providers Care Water Conservation Specialist Name Role Phone Nyasia Baum [facility] Primary Care Provider [phone] Allergies Active Allergy Reactions Criticality Noted Date [...] Additional Information Patient not taking.Reported on 05/16/2024 lisinopril-hydroC HLOROthiazide 10-12.5 MG tablet TAKE ONE TABLET BY MOUTH EVERY MORNING 90 tablet 1 024 Active atorvastatin (Lipitor) 40 MG tabletIndications :Mixed hyperlipidemia TAKE ONE TABLET BY MOUTH AT BEDTIME 90 tablet 1 024 Active fluticasone (Flonase) 50 MCG/ACT nasal sprayIndications: Shortness of breath ADMINISTER 2 SPRAYS INTO EACH NOSTRIL ONCE DAILY NEEDED FOR ALLERGIES AND NASAL CONGESTION 16 g 025 Active verapamil SR (Calan SR) 240 MG ER tabletIndications :Benign hypertension TAKE ONE TABLET BY MOUTH EVERY MORNING WITH FOOD 90 tablet 1 025 Active verapamil SR (Calan SR) 240 MG ER tabletIndications :Benign hypertension TAKE ONE TABLET BY MOUTH EVERY MORNING WITH FOOD 90 tablet 1 024 2024 Discontinued fluticasone (Flonase) 50 MCG/ACT nasal sprayIndications: Shortness of breath APPLY TWO SPRAYS INTO EACH NOSTRIL ONCE A DAY NEEDED FOR ALLERGIES AND NASAL CONGESTION 16 g 024 2024 Discontinued amoxicillin-clavu lanate (Augmentin) 875-125 MG tablet Take 1 tablet by mouth 2 times daily for 7 days. 14 tablet 025 2024 Active Problems Problem Noted Date Diagnosed Date [...] visit Healthcare maintenance 02/06/2023 Overview (08/26/2023): C-Scope: 2014, negative PSA: 12/2022 .06 HCV Screen: Neg 11/2022 HIV Screen: Neg 11/2022 STI Screening: Declines Vision Exam: Vision exam at [facility] Care: DFollow[facility] Hgb A1c: 5.0% at QT prolongation [...] PRN ? ? 03/2023-Has initial visit with [facility] pulmonology. Per visit note pt with COPD [...] distal neuropathic changes. ? ? 03/2023- Saw [facility] vascular. Per visit note negative venous ultrasound. Etiology of polyneuropathy unclear ?? B12, folate, magnesium WNL 12/2022 ?? Did not tolerate amitriptyline or gabapentin (worsened anxiety) Assessment & Plan (10/14/2023 7:04 AM EST): ?? Referred to neurology 08/2023 Assessment & Plan (08/27/2023 1:31 PM EST): ?? Etiology unclear. Foot abnormalities increase concern for systemic disease. ?[id number], ?gammopathy, ?autoimmune dysfunction ?? Will order additional [...] Encounters Date Type Department Care Team Description 11/17/2024 9:00 AM EST Office Visit [facility] [address] [place] [address] Jairo Bales MD Skin infection (Primary Dx); Dietary counseling; Exercise counseling 11/16/2024 Telephone [facility] [address] [place] [address] Nyasia Baum FNP Nurse Triage 11/16/2024 Refill [facility] [address] [place] [address] Nyasia Baum FNP Benign hypertension 11/10/2024 Refill [facility] [address] [place] [address] Fay Klein NP Shortness of breath 10/08/2024 Refill [facility] [address] [place] [address] Nyasia Baum FNP Shortness of breath 09/08/2024 Refill [facility] [address] [place] [address] Nyasia Baum FNP Shortness of breath from Last 3 [...] Mass Index 34.15 11/17/2024 9:04 AM EST Plan of Treatment Upcoming Encounters Date Type Department Care Team (Late st Contact Info) Description 12/28/2024 10:00 AM EDT Office Visit [facility] [address] [place] [address] [facility] [address] [place] [address] Health Maintenance Due Date Last Done Comments CT Colonography 1962 FIT DNA/Cologuard 1962 FIT 1962 FOBT 1962 Sigmoidoscopy 1962 Alcohol/Substance Use Screening 1974 SDOH Screening 12/29/2023 12/28/2022 Dental Oral Exam 02/28/2024 08/29/2023, 11/2021, 02/10/2017, Additional history exists Dental X-Ray: Bitewings 08/30/2024 08/29/20 23, 02/08/2022, 02/10/2017, Additional history exists Dental Prophylaxis 09/27/2024 03/27/2024, 1 10/29/2022, 02/08/2022, Additional history exists Dental X-Ray: Full Mouth 02/09/2025 02/08/2022, 04/0 06/2015 Depression Screening 06/29/2025 06/29/2024, 06/29/20 24 Tobacco Screening 07/02/2025 07/02/2024 Lipid Panel 11/22/2027 [...] 11/22/2022 8:53 AM EST Routine health maintenance INTRAORAL - COMPLETE SERIES OF RADIOGRAPHIC IMAGES Routine 02/08/2022 12:00 AM EDT from Last 3 Months or Most Recently Relevant to Health Maintenance Results * Colonoscopy (01/09/2024) Colonoscopy Normal Normal Comment:negative with 10 yea r follow up 01/09/2024 Historical Provider MD HEALTH MAINTENANCE Final Result * HIV-1 RNA, Quantitative, Real-Time PCR with Reflex to Genotype (RTI, PI, Integrase) (11/22/2022 8:53 AM EST) HIV 1 RNA, QN PCR NOT DETECTED copies/mL [facility] [employer] [facility], HIV 1 RNA, QN PCR NOT DETECTED Log copies/mL [facility] [employer] [facility], Comment: REFERENCE RANGE: NOT DETECTED copies/mL ?NOT DETECTED ??Log copies/mL This test was performed using Real-Time Polymerase Chain Reaction. Reportable range is 20 to 10,000,000 copies/mL (1.30-7.00 Log copies/mL). 11/22/2022 8:53 AM EST 11/22/2022 8:53 AM EST Narrative [facility] - 12/02/2022 11:57 PM EST FASTING:YES FASTING: YES Rica Haider [facility] LAB BLOOD ORDERABLES Final Res ult Performing Organization Address [facility]/ZIP Co de Phone Number [facility] [address] [place] [address], [place] [address] OB10/[facility], [address] [place] [address], [place] [address] * (ABNORMAL) Hepatitis C Antibody with Reflex to HCV, RNA, Quantitative, Real- Time PCR (11/22/2022 8:53 AM EST) Hepatitis C Antibody BORDERLIN E(A) NON-REACT KELLY [facility]ler Index 0.95 <1.00 Roamler Comment: HCV antibody was non-reactive. There is no laboratory evidence of HCV infection. In most cases, no further action is required. However, if recent HCV exposure is suspected, a test for HCV RNA (test code 74725) is suggested. For additional information please refer to http://education.SPO Medical/faq/VFO02j5 (This link is being provided for informational/ educational purposes only.) Blood Venous blood specimen / Unknown 11/22/2022 8:53 AM EST 11/22/2022 8:53 AM EST Narrative [facility] - 12/02/2022 11:57 PM EST FASTING:YES FASTING: YES Rica Haider [facility] LAB BLOOD ORDERABLES Final Res ult Performing Organization Address City/[facility]/ZIP Co de Phone Number [address], [place] [address] [facility] [place] [facility] [address] [facility], (N[address]2) [place] [address] * Lipid Panel, Standard (11/22/2022 8:53 AM EST) Cholesterol, Total 141 <200 mg/dL [facility] [place] [facility] HDL Cholesterol 60 > OR = 40 mg/dL [facility] [place] [facility] Triglycerides 131 <150 mg/dL [facility] [place] [facility] LDL Cholesterol 60 mg/dL (calc) [facility] [place] [facility] Comment: Reference range: <100 Desirable range <100 mg/dL for primary prevention; ?? <70 mg/dL for patients with CHD or diabetic patients with > or = 2 CHD risk factors. LDL-C is now calculated using the Ryan calculation, which is a validated novel method providing better accuracy than the Friedewald equation in the estimation of LDL-C. Ronald PIERCE et al. DAFNE. 2013;310(19): 3960-5430 (http://education.IMGuest/faq/DQB057) Chol/HDLC Ratio 2.4 <5.0 (calc) [facility] [place] [facility] Non-HDL Cholesterol 81 <130 mg/dL (calc) [facility] [place] [facility] Comment: For patients with diabetes plus 1 major ASCVD risk factor, treating to a non-HDL-C goal of <100 mg/dL (LDL-C of <70 mg/dL) is considered a therapeutic option. Blood Venous blood specimen / Unknown 11/22/2022 8:53 AM EST 11/22/2022 8:53 AM EST Narrative [facility] - 12/02/2022 11:57 PM EST FASTING:YES FASTING: YES us Rica Haider [facility] LAB BLOOD ORDERABLES Final Res ult [facility] [address], [place] [address] [facility]10 [place] [facility] [address] [facility], ([address]) [place] [address] from Last 3 Months or Most Recently Relevant to Health Maintenance Insurance [employer]NA MEDICARE REPLACEMENT DENTAL - AET[employer] DENTAL Care Teams Water Conservation Specialist Relationship Specialty Start Date End Date Nyasia Baum FNP [address] [place] [id number] PCP - General Family Medicine 09/08/22
== END ==
LOC: HO.SL 19:30
PROVIDERS: PCP Registered Nurse; Visit Provider Internal Medicine
DX: G47.33 Obstructive sleep apnea (adult) (pediatric) (principal); J44.9 Chronic obstructive pulmonary disease, unspecified; G47.31 Primary central sleep apnea
CPT/HCPCS: 95810

== ENCOUNTER → 2024-12-04 23:17 | Outpatient (BNV) | payer MEDICARE, SELFPAY | PROVIDERS: PCP Registered Nurse; Visit Provider Internal Medicine | DX: G47.33 Obstructive sleep apnea (adult) (pediatric) (principal) | CPT/HCPCS: 95810 ==

== ENCOUNTER 2025-02-04 13:52 | Outpatient (AMB) | payer MEDICARE, SELFPAY ==
[2025-02-04 14:25] VITALS: BP 102/60; PULSE 80; O2SAT 93; BMI 35.5
--- NOTE | 2025-02-04 14:25 | MHC.OFFVIS ---
Vital Signs 02/04/25 14:25 Height 5 ft 8 in Weight 233 lb 11.04 oz BMI 35.5 BP 102/60 Blood Pressure Location Lt brachial Position Sitting Pulse 80 Pulse Source Pulse Oximeter Pulse Oximetry (%) 93 Oxygen Delivery Method Room Air Intake Visit Reasons: COPD Intake Note: pt is here for follow up of sleep study, he needed to add Incruse back into this regimen due to headaches, please refill albuterol for his nebulizer to have at home. Transition Mgr Rn Required: No Allergies ibuprofen [IBUPROFEN] Allergy (Unknown, Verified 02/04/25 14:40) GI UPSET morphine [MORPHINE] Allergy (Unknown, Verified 02/04/25 14:40) NAUSEA & VOMITING tramadol [TRAMADOL] Allergy (Unknown, Verified 02/04/25 14:40) SEIZURES Medication List - Last Reconciled 02/04/25 by Christiano Velez MD albuterol sulfate mg inhalation Q4H PRN allopurinol 300 mg PO DAILY alpha lipoic acid 600 mg PO DAILY PRN atorvastatin 40 mg PO BEDTIME fluticasone propion-salmeterol 250-50 mcg/dose (Advair Diskus) 1 ea inhalation BID fluticasone propionate 50 mcg/actuation sprays intranasal lisinopril-hydrochlorothiazide 10-12.5 mg 1 tab PO DAILY methimazole 5 mg PO DAILY umeclidinium 62.5 mcg/actuation (Incruse Ellipta) 1 inh inhalation DAILY Ventolin HFA 90 mcg/actuation (albuterol sulfate) 2 puffs inhalation Q4-6H PRN NS verapamil ER 240 mg PO DAILY HPI HPI COPD: Details: This 64 years old gentleman is here for follow-up after the polysomnogram study in the sleep lab. He was found to have moderately severe obstructive sleep apnea and, then CPAP titration was started. CPAP titration was relatively difficult requiring higher pressures, and finally it took bilevel pressure of 19/14 cm to achieve optimal results. COPD is remaining stable. He try to go of Incruse Ellipta because it was very costly. But without Incruse Ellipta he started having increased cough and wheezing along with some headache. Restarted Ellipta and he is feeling better. He would like to try an alternate agent which is covered by his insurance. [facility] Medical History Dyspnea on exertion COPD (chronic obstructive pulmonary disease) Surgical History H/O hernia repair Family History Mother No problems noted. Father Heart attack Social History Alcohol intake: current Alcohol intake frequency: holidays/special occasions only Patient Tobacco Use Status: Never used Tobacco Substance Use Type: Marijuana Current occupational status: retired and disabled Current occupation: right hand dominant Review of Systems Const All systems reviewed & are unremarkable except as noted in HPI and below Eyes Reports no additional complaints ENT Reports no additional complaints Card Denies chest pain, Reports leg edema (Mild, on standing too long) and Reports dyspnea on exertion Resp Reports as per HPI and Reports dyspnea on exertion GI Reports no additional complaints Reports no additional complaints Musc Reports abnormal gait (He has mild unstable gait off and on and uses a walking stick ), Reports back pain, Reports radiating pain into limb and Reports stiffness Skin/Breast Reports system reviewed and no additional complaints, except as documented Neuro Reports abnormal gait (He has mild unstable gait off and on and uses a walking stick ) Psych Reports no additional complaints Endo Reports other (Thyroid dysfunction) Nate/Lymph Reports no additional complaints Aller/Immun Reports no additional complaints Physical Exam Vital Signs: Last Vital Signs Pulse 80 02/04/25 14:25 BP 102/60 02/04/25 14:25 Pulse Ox 93 02/04/25 14:25 Oxygen Delivery Method Room Air 02/04/25 14:25 BMI result Body Mass Index 35.5 Const General: healthy appearing (Except for being overweight), comfortable, no acute distress, alert and awake Orientation/consciousness: patient oriented x3 HEENT Head: Yes normal to inspection General nose exam: No nasal polyps present and No nasal discharge present Face and sinus: Yes sinuses nontender Mouth: oropharynx abnormals (Narrow and crowded, Mallampati class 3) Teeth and gingiva: other (RETROGANTHIA OF THE LOWER JAW.) Throat: Yes posterior oropharynx normal Eyes General: appearance normal, both eyes and all related structures Neck Neck: Yes normal visual inspection, Yes no lymphadenopathy, Yes trachea midline, Yes no JVD and Yes other (Neck circumference 18 in) Thyroid: Thyroid normal Chest Chest palpation & inspection: normal inspection of the chest, normal palpation of entire chest wall and no tenderness Resp Other: Percussion note is resonant, breath sounds are very distant with prolonged expiratory phase. No audible wheezes or crepitations. Cardio Palpation: normal PMI Rate: regular rate Rhythm: regular rhythm Heart sounds: no gallops and no murmurs GI Palpation (GI): Soft to palpation, nontender, No hepatosplenomegaly present and no masses Auscultation: normal bowel sounds Back/Spine/Pelvis Thoracic/Lumbar Spine: thoracic and lumbar spine normal to inspection and thoraco-lumbar ROM limited Skin General skin exam: no rashes or lesions noted Neuro General: patient oriented x3, No gait normal (Has mild impairment of the gait and uses a walking stick) and no focal motor deficits Cranial nerves: Yes CN's II-XII intact bilaterally Extrem General: Yes normal to inspection, Yes no clubbing, cyanosis or edema, Yes no calf tenderness and Yes edema (Chronic stasis edema currently controlled with elastic stockings) Psych Appearance: grossly normal and well kempt Speech and movement: Normal speech and movement present Results Reviewed Results Reviewed: Polysomnogram study in the sleep lab on 12/04/2024 showed that he has severe obstructive sleep apnea. CPAP titration was performed which was relatively difficult and had to go to bilevel pressure for better control. Finally the optimal results obtained with pressure of 19/14 cm using fullface mask of large size. Patient comes today to discuss the results of the sleep study and for further plan. Assessment & Plan Assessment & Plan (1) SANTOSH (obstructive sleep apnea): Comment: Severe degree of SANTOSH. The AHI was 52/hr, oxygen laura was 76% Had been started on BIPAP therapy, and was being followed by sleep Medicine Services. He was not able to use BiPAP due to high pressures , so he returned the device. It is almost 1 year ago. At present he is having increased symptoms, with frequent awakening at night. So he had polysomnogram study with CPAP titration again on 12/04/2024. Required bilevel pressure of 19/14 cm Code(s): G47.33 - Obstructive sleep apnea (adult) (pediatric) Category: Medical Plan: CPAP equipment is ordered with the pressure setting of 19/14 cm using full face mask of large size. Heated humidification is also recommended. I have explained to the patient the findings of his recent polysomnogram study and also importance of using the CPAP. He will be re-evaluated in 6-8 weeks to go over his compliance. (2) COPD (chronic obstructive pulmonary disease): Comment: This gentleman has features of chronic obstructive pulmonary disease. He denies history of smoking cigarettes. He smokes marijuana about 3 times a day. COMPLAINS OF INCREASED SHORTNESS OF BREATH ON EXERTION. WHICH I THINK COINCIDES WITH HIS GAINING WEIGHT. I REVIEWED THE FINDINGS OF SPIROMETRY WITH HIM WHICH WAS ESSENTIALLY NORMAL. Code(s): J44.9 - Chronic obstructive pulmonary disease, unspecified Category: Medical Plan: Advised to continue using Wixela 250-50 1 inhalation b.i.d. Continue Incruse Ellipta 1 inhalation daily, and we will inquire about an alternate [place] agent in place of Incruse Ellipta , which will be covered by his insurance Coding Level of Care Code Est Pt Level 3 (04591) Diagnoses SANTOSH (obstructive sleep apnea) G47.33 COPD (chronic obstructive pulmonary disease) J44.9
--- OUTSIDE RECORDS SUMMARY | 2025-02-04 16:36 | XMS_ITS | Encounter Summary ---
Author Organization [employer] Address [address] [place] [address] [place] [address] Care Team Providers Care Chief Diversity Officer Name Role Phone Cristian Kilgore MD Primary Care Provider Unava ilable Nyasia Baum [facility] Primary Care Provider [phone] Encounter Details Date Type Department Care Team [...] as of this encounter Plan of Treatment Not on file documented as of this encounter Visit Diagnoses Not on filedocumented in this encounter Care Teams Chief Diversity Officer Relationship Specialty Start Date End Date Cristian Kilgore MD PCP - General Family Medicine 03/28/20 09/07/22 Nyasia Baum [facility] [address] [place] [id number] PCP - General Family Medicine 09/08/22 documented as of this encounter
--- OUTSIDE RECORDS SUMMARY | 2025-02-04 16:36 | XMS_ITS | Encounter Summary ---
Author Organization [employer] Address [address] [place] [address] [address] [place] [address] Care Team Providers Care Manager Branch Name Role Phone [facility] Primary Care Provider [phone] Reason for Visit * Reason Onset Date Comments Durable Medical Equipment 12/15/2022 Encounter Details Date Type Department Care Team (Late st Contact Info) Description 12/15/2022 Telephone [facility] [address] [place], [place] [id number] [facility] [address] [place] [address] Durable Medical Equipment Social History Tobacco Use [...] - 12/15/2022 10:20 AM EST TC to care mgr and provided the number for sleep medicine where they monitor patient SANTOSH. * Telephone Encounter - Brandon Esteves - 12/15/2022 9:38 AM EST Tc from [facility] care mgr Requesting a script for a cpap machine for pt requesting to be faxed over to [facility] fax# [phone] Please contact devang with [facility] at [phone] documented in this encounter Plan of Treatment Not on file documented as of this encounter Visit Diagnoses Not on filedocumented in this encounter Care Teams Manager Branch Relationship Specialty Start Date End Date Nyasia Baum FNP [address] [place] [id number] PCP - General Family Medicine 09/08/22 documented as of this encounter
--- OUTSIDE RECORDS SUMMARY | 2025-02-04 16:36 | XMS_ITS | Clinical Summary ---
Author Organization [employer] Address [address] [place] [address] 7t [place] [address] Care Team Providers Care Baseball Glove Stuffer Name Role Phone Nyasia Baum [facility] Primary Care Provider [phone] Allergies Active Allergy Reactions Criticality Noted Date Comments Gabapentin 11/18/2022 Other reaction(s): panic attack, diarrhea Ibuprofen 04/14/2018 Other reaction(s): Abdominal discomfort, Stomach Pain Morphine 04/14/2018 Other reaction(s): Abdominal bloating, Stomach Pain Tramadol 04/14/2018 Other reaction(s): Grand mal seziures, Seizure Venlafaxine Hcl 11/18/2022 Other reaction(s): chest tightness and rash Medications methIMAzole (Tapazole) 5 MG tablet Take 5 mg by mouth in the morning. 11/07/19 23 Active methadone (Dolophine) 10 MG tablet 125mg 06/10/20 21 Active albuterol (2.5 MG/3ML) 0.083% nebulizer solutionIndication s:Chronic obstructive pulmonary disease, unspecified COPD type (CMS/HCC) Take 3 mL (2.5 mg) by nebulization every 4 (four) hours if needed for wheezing. 75 mL 3 12/29/19 23 Active albuterol 108 (90 Base) MCG/ACT inhalerIndications :Shortness of breath INHALE 2 PUFFS INTO THE LUNGS EVERY 4 TO 6 HOURS NEEDED 8.5 g 1 02/19/20 23 Active Fluticasone-Salmet mendoza 250-50 MCG/ACT aerosol powder Take 1 puff by mouth 2 times daily. For COPD 04/17/20 23 Active Alpha-Lipoic Acid 600 MG capsuleIndications :Chronic inflammatory demyelinating polyneuropathy (CMS/HCC) Take 1 capsule by oral route daily 30 capsule 2 05/19/20 23 Active allopurinol (Zyloprim) 300 MG tabletIndications: Gout, unspecified cause, unspecified chronicity, unspecified site TAKE ONE TABLET BY MOUTH EVERY DAY 90 tablet 1 12/09/19 24 Active Incruse Ellipta 62.5 MCG/ACT aerosol powderIndications: Chronic obstructive pulmonary disease, unspecified COPD type (CMS/HCC) INHALE ONE PUFF BY MOUTH EVERY MORNING 30 each 3 01/18/20 24 Active lidocaine (Lidoderm) 5 % patchIndications:C losed nondisplaced fracture of phalanx of right little finger, unspecified phalanx, initial encounter Apply 1 patch topically Once per day. Remove & discard patch within 12 hours or as directed by MD. 30 patch 1 04/03/20 24 Active Additional Information Patient not taking.Reported on 05/16/2024 diclofenac (Cataflam) 50 MG tabletIndications: Closed nondisplaced fracture of phalanx of right little finger, unspecified phalanx, initial encounter Take 1 tablet (50 mg) by mouth 3 times daily. 30 tablet 04/03/20 24 025 Active Additional Information Patient not taking.Reported on 05/16/2024 gabapentin (Neurontin) 600 MG tabletIndications: Closed nondisplaced fracture of phalanx of right little finger, unspecified phalanx, initial encounter Take 1 tablet (600 mg) by mouth 3 times daily. 30 tablet 04/03/20 24 025 Active Additional Information Patient not taking.Reported on 05/16/2024 atorvastatin (Lipitor) 40 MG tabletIndications: Mixed hyperlipidemia TAKE ONE TABLET BY MOUTH AT BEDTIME 90 tablet 1 08/06/20 24 Active verapamil SR (Calan SR) 240 MG ER tabletIndications: Benign hypertension TAKE ONE TABLET BY MOUTH EVERY MORNING WITH FOOD 90 tablet 1 11/16/19 25 Active fluticasone (Flonase) 50 MCG/ACT nasal sprayIndications:S hortness of breath INSTILL 2 SPRAYS INTO EACH NOSTRIL ONCE DAILY NEEDED FOR ALLERGIES AND NASAL CONGESTION 16 g 12/11/19 25 Active terbinafine (LamISIL AT) 1 % creamIndications:T inea cruris Apply topically 2 times daily. 15 g 1 12/29/19 25 Active lisinopril-hydroCH LOROthiazide 10-12.5 MG tablet TAKE ONE TABLET BY MOUTH EVERY MORNING 90 tablet 01/03/20 25 Active Active Problems Problem Noted Date Diagnosed Date [...] Screening: Declines Vision Exam: Vision exam at [facility]: [facility] Hgb A1c: 5.0% at QT prolongation [...] PRN ? ? 03/2023-Has initial visit with [facility] pulmonology. Per visit note pt with COPD [...] distal neuropathic changes. ? ? 03/2023- Saw [facility] vascular. Per visit note negative venous ultrasound. Etiology of polyneuropathy unclear ?? B12, folate, magnesium WNL 12/2022 ?? Did not tolerate amitriptyline or gabapentin (worsened anxiety) Assessment & Plan (10/14/2023 7:04 AM EST): ?? Referred to neurology 08/2023 Assessment & Plan (08/27/2023 1:31 PM EST): ?? Etiology unclear. Foot abnormalities increase concern for systemic disease. ?ftguown-aeexo-jjeuk, ?gammopathy, ?autoimmune dysfunction ?? Will order additional [...] Encounters Date Type Department Care Team Description 01/02/2025 Refill [facility] [address] [place] [id number] Nyasia Baum FNP 12/28/2024 10:00 AM EDT Office Visit [facility] [address] [place] [phone] Nyasia Baum FNP Tinea cruris (Primary Dx); Primary hypertension; Obstructive sleep apnea syndrome; Class 1 obesity due to excess calories with serious comorbidity and body mass index (BMI) of 34.0 to 34.9 in adult 12/28/2024 Travel 12/27/2024 Telephone [facility] [address] [place] [phone] Nyasia Baum FNP chart prep 12/20/2024 Patient Outreach [facility] [address] [place] [phone] Nyasia Baum FNP Pre-visit Planning (SDOH screening negative and tobacco screening negative) 12/10/2024 Refill [facility] [address] [place] [phone] Nyasia Baum FNP Shortness of breath 11/17/2024 9:00 AM EST Office Visit [facility] [address] [place] [phone] Jairo Bales MD Skin infection (Primary Dx); Dietary counseling; Exercise counseling 11/16/2024 Telephone [facility] [address] [place] [address] Nyasia Baum FNP Nurse Triage 11/16/2024 Refill [facility] [address] [place] [address] [place], Nyasia, PROFESSIONAL SHOPPER Benign hypertension 11/10/2024 Refill [facility] [address] [place] [address] Fay Klein NP Shortness of breath from Last 3 Months [...] Date Recorded Patient Health Questionnaire-9 Score 0 12/28/2024 Patient Health Questionnaire-9 Score 0 12/28/2024 Last PHQ-9: Questionnaire Data Not on file 0 12/28/2024 Housing Stability Answer Date Recorded What is your housing situation today? I have hola galvan 12/20/[address] you li ve. Do you have problems with any of the following? None of the above 12/20/2024 Food Insecurity Answer Date Recorded Within the past 12 months, y ou worried that your food would run out before you got money to buy more: Never True 12/20/2024 Within the past 12 months,th e food you bought just didn't last and you didn't have enough money to get more: Never True Transportation Answer Date Recorded In the past 12 months, has l ack of transportation kept you from medical appts, meetings, work or from getting things needed for daily living? No 12/20/2024 Utilities Answer Date Recorded In the past 12 months, has t he electric, gas, oil or water company threatened to shut off services in your home? No 12/20/2024 Depression Answer Date Recorded Patient Health Questionnaire-2 Score 0 12/28/2024 Internet Access Answer Date Recorded Internet Access Q1 Yes 12/20/2024 Internet Access Q2 Not on file 12/20/2024 Sex and Gender Information Value Date Recorded Sex Assigned at Male 08/12/2022 6:04 PM EDT Legal Sex Male 5:36 PM EDT Gender Identity Male 08/12/2022 6:04 PM EDT Sexual Orientation Straight 08/12/2022 6: 04 PM EDT Last Filed Vital Signs Vital Sign Reading Time Taken Comments Blood Pressure 130/78 12/28/2024 9:36 AM EDT Pulse 75 12/28/2024 9:36 AM EDT Temperature 36.4 ??C (97.5 ??F) 12/28/2024 9:36 AM ED T Respiratory Rate 20 12/28/2024 9:36 AM EDT Oxygen Saturation 97% 12/28/2024 9:36 AM EDT Inhaled Oxygen Concentration - - Weight 109 kg (240 lb) 12/28/2024 9:36 AM EDT Height 177.8 cm (5' 10 ) 12/28/2024 9:36 AM EDT Body Mass Index 34.44 12/28/2024 9:36 AM EDT Plan of Treatment Health Maintenance Due Date Last Done Comments CT Colonography 1960 FIT DNA/Cologuard 1960 FIT 1960 FOBT 1960 Sigmoidoscopy 1960 Alcohol/Substance Use Screening 1974 Dental Oral Exam 02/28/2024 08/29/2023, 11/2021, 02/10/2017, Additional history exists Dental X-Ray: Bitewings 08/30/2024 08/29/20 23, 02/08/2022, 02/10/2017, Additional history exists Dental Prophylaxis 09/27/2024 03/27/2024, 1 10/29/2022, 02/08/2022, Additional history exists Dental X-Ray: Full Mouth 02/09/2025 02/08/2022, 04/0 06/2015 SDOH Screening 12/20/2025 12/20/2024 Depression Screening 12/28/2025 12/28/2024, 12/29/19 25 Tobacco Screening 12/28/2025 12/28/2024 Lipid Panel 11/22/2027 11/22/2022, 02/12/2021 DTaP/Tdap/Td Vaccines [...] yea r follow up 01/09/2024 Historical Provider HEALTH MAINTENANCE Final Result * HIV-1 RNA, Quantitative, Real-Time PCR with Reflex to Genotype (RTI, PI, Integrase) (11/22/2022 8:53 AM EST) HIV 1 RNA, QN PCR NOT DETECTED copies/mL [facility] [employer] [facility], HIV 1 RNA, QN PCR NOT DETECTED Log copies/mL [facility] [employer] [facility], Comment: REFERENCE RANGE: NOT DETECTED copies/mL ?NOT DETECTED ??Log copies/mL This test was performed using Real-Time Polymerase Chain Reaction. Reportable range is 20 to 10,000,000 copies/mL (1.30-7.00 Log copies/mL). 11/22/2022 8:53 AM EST 11/22/2022 8:53 AM EST Narrative [facility] - 12/02/2022 11:57 PM EST FASTING:YES FASTING: YES Rica Haider [facility] LAB BLOOD ORDERABLES Final Res ult Performing Organization Address [facility]/ZIP Co de Phone Number [address], [place] [address] [email or web address], [address] [place] [address] * (ABNORMAL) Hepatitis C Antibody with Reflex to HCV, RNA, Quantitative, Real- Time PCR (11/22/2022 8:53 AM EST) Hepatitis C Antibody BORDERLIN E(A) NON-REACT KELLY Knip Index 0.95 <1.00 Knip Comment: HCV antibody was non-reactive. There is no laboratory evidence of HCV infection. In most cases, no further action is required. However, if recent HCV exposure is suspected, a test for HCV RNA (test code 51663) is suggested. For additional information please refer to http://education.[employer]/faq/BGU27q5 (This link is being provided for informational/ educational purposes only.) Blood Venous blood specimen / Unknown 11/22/2022 8:53 AM EST 11/22/2022 8:53 AM EST Narrative [facility] - 12/02/2022 11:57 PM EST FASTING:YES FASTING: YES Rica Haider [facility] LAB BLOOD ORDERABLES Final Res ult Performing Organization Address [facility] Co de Phone Number [address], [place] [address] [email or web address] [facility] [address] [place] [address], ([address]) [place] [address] * Lipid Panel, Standard (11/22/2022 8:53 AM EST) Cholesterol, Total 141 <200 mg/dL [email or web address] HDL Cholesterol 60 > OR = 40 mg/dL [email or web address] Triglycerides 131 <150 mg/dL [email or web address] [place] [employer] LDL Cholesterol 60 mg/dL (calc) [email or web address] Comment: Reference range: <100 Desirable range <100 mg/dL for primary prevention; ?? <70 mg/dL for patients with CHD or diabetic patients with > or = 2 CHD risk factors. LDL-C is now calculated using the Ryan calculation, which is a validated novel method providing better accuracy than the Friedewald equation in the estimation of LDL-C. Ronald SS et al. DAFNE. 2013;310(19): 2181-0824 (http://education.Ebid.co.zw/faq/HBR510) Chol/HDLC Ratio 2.4 <5.0 (calc) [email or web address] Non-HDL Cholesterol 81 <130 mg/dL (calc) [email or web address] Comment: For patients with diabetes plus 1 major ASCVD risk factor, treating to a non-HDL-C goal of <100 mg/dL (LDL-C of <70 mg/dL) is considered a therapeutic option. Blood Venous blood specimen / Unknown 11/22/2022 8:53 AM EST 11/22/2022 8:53 AM EST Narrative [facility] - 12/02/2022 11:57 PM EST FASTING:YES FASTING: YES Rica Haider [facility] LAB BLOOD ORDERABLES Final Res ult [facility] [address], [place] [address] [email or web address] [address] [facility], ([address]) [place] [address] from Last 3 Months or Most Recently Relevant to Health Maintenance Insurance [employer] MEDICARE REPLACEMENT DENTAL - AETNA DENTAL Care Teams Baseball Glove Stuffer Relationship Specialty Start Date End Date SarikaNyasia negron FNP [address] [place] [phone] PCP - General Family Medicine 09/08/22
--- OUTSIDE RECORDS SUMMARY | 2025-02-04 16:36 | XMS_ITS | Encounter Summary ---
Author Organization [employer] Address [address] [facility] 7t [place] [address] Care Team Providers Care Student Financial Services Counselor Name Role Phone [facility] Primary Care Provider [phone] Encounter Details Date Type Department Care Team ([facility] st Contact Info) Description 08/24/2023 [facility] Health Information Management [address] [place], [place] [phone] [facility] [address] [place] [address] Social History Tobacco Use Types Packs/Day Years [...] t he electric, gas, oil or water [employer] threatened to shut off services in your [...] documented as of this encounter Care Teams Student Financial Services Counselor Relationship Specialty Start Date End Date Nyasia Baum FNP [address] [place] [phone] PCP - General Family Medicine 09/08/22 documented as of this encounter
--- OUTSIDE RECORDS SUMMARY | 2025-02-04 16:36 | XMS_ITS | Encounter Summary ---
Author Organization [employer] Address [address] [facility] [address]t [place] [address] Care Team Providers Care Leather Stretcher Name Role Phone [facility] Primary Care Provider [phone] Encounter Details Date Type Department Care Team ([facility] st Contact Info) Description 04/06/2024 Telephone [facility] [address] [place], [place] [phone] [facility] [address] [place] [address] Social History Tobacco Use Types Packs/Day Years [...] documented as of this encounter Care Teams Leather Stretcher Relationship Specialty Start Date End Date Nyasia Baum FNP [address] [place] [phone] PCP - General Family Medicine 09/08/22 documented as of this encounter
--- OUTSIDE RECORDS SUMMARY | 2025-02-04 16:36 | XMS_ITS | Encounter Summary ---
Author Organization [employer] Address [address] [facility] 7t [place] [address] Care Team Providers Care Stamping Press Operator Name Role Phone Sarika Nyasia STRIPPER SHOVEL OPERATOR Primary Care Provider [phone] Encounter Details Date Type Department Care Team ([facility] st Contact Info) Description 11/15/2022 Orders Only [facility] [address] [place] [address] Abigail Wilkins LPN Social History Tobacco Use [...] on file documented as of this encounter Procedures Procedure [...] EST) VBG pH 7.41 7.32 - 7.43 [facility] VBG PCO2 53 mmHg [facility] VBG PO2 34 mmHg [facility] VBG Base Excess 8.1 mmol/L [facility] VBG HCO3 34(H) 22 - 26 mmol/L [facility] O2 Sat, Reji 48.0 % [facility] 09/26/2023 10:5 8 AM EST 09/26/2023 11:27 AM EST Generic External Data Provider LAB BLOOD ORDERAB LES Final Result Performing Organization Address [facility] de Phone Number [facility] [address] [place] [address] [phone] * T4, Free (09/05/2023 10:06 AM EST) Free T4 (Free Thyroxine) 0.87 0.71 - 1.85 ng/dL [facility] 09/05/2023 10:0 6 AM EST 09/05/2023 11:20 AM EST [facility] STRIPPER SHOVEL OPERATOR LAB BLOOD ORDERABLES Final Re sult Performing Organization Address [facility] de Phone Number [facility] [address] [place] [address] [phone] * CT Abdomen Pelvis w/ Contrast (12/15/2022 12:40 PM EST) Anatomical Region Laterality Modality Body, Pelvis, Abdomen Computed T omography 12/15/2022 12:4 0 PM EST Narrative 12/20/2022 2:28 PM EDT ? [facility] ?[address] ?[place] [address] ? CT Scan Report ? Signed ? Patient: Quenntenisha,Victor Manuel ?MR#: [id number] ?? [id number] ? : 1960 ?Acct:[id number] ? Age/Sex: 62 / M ?ADM Date: 03/08/23 ? Loc: HO.CT ? Attending Dr: Rica DELGADO ? Ordering Physician: Rica Haider ?? Date of Service: 12/15/22 ?? Procedure(s): CT abdomen pelvis w IV con ?? Accession Number(s): [id number] ? cc: Rica Haider ? EXAMINATION: ?? [...] 1425 ? DD/ 1240 ? TD/TT: ? Gun Barrel Finisher: SS ? Procedure Note [place], Image - 12/20/[address] [place] [address] [address] Scan Report Signed Patient: Victor Manuel JayMR#: [id number] : 2Acct:[id number] Age/Sex: 62 / MADM Date: 12/15/22 Loc: HO.CT Attending Dr: Rica DELGADO Ordering Physician: Rica Haider Date of Service: 12/15/22 Procedure(s): CT abdomen pelvis w IV con Accession Number(s): [id number] cc: Rica Haider EXAMINATION: CT ABDOMEN AND [...] in OV> 12/20/22 1425 DD/ 1240 TD/TT: Gun Barrel Finisher: SS [facility] External Provider IMG CT PROCEDURES Edited Result - Final * POCT Creatinine GFR (12/15/2022 11:22 AM EST) POCT Creatinine 0.6 0.5 - 1.4 mg/dL [facility] GFR POC 60 [facility] Comment:Chronic Kidney Disea se: Estimated GFR < 60 mL/min/1.38y7Ifyqdc Kidney Disease: Estimated GFR < 15 mL/min/1.73m2 12/15/2022 11:2 2 AM EST 12/15/2022 2:40 PM EST Narrative [facility] - 12/15/2022 2:42 PM EST [id number] [facility] Exter nal Provider LAB POINT OF CARE TEST DOCKED DEVICE ORDERABLES Final Result [facility] [address] [place] [address] [phone] documented in this encounter Visit Diagnoses Not on filedocumented in this encounter Care Teams Stamping Press Operator Relationship Specialty Start Date End Date Nyasia Baum FNP [address] [place] [address] PCP - General Family Medicine 09/08/22 documented as of this encounter
== END 2025-02-04 15:41 | disposition home or self-care (01) ==
LOC: HO.HPS 13:53
PROVIDERS: PCP Registered Nurse; Visit Provider Internal Medicine
DX: G47.33 Obstructive sleep apnea (adult) (pediatric) (principal); J44.9 Chronic obstructive pulmonary disease, unspecified
CPT/HCPCS: 99213

== ENCOUNTER → 2025-02-04 13:52 | Outpatient (BNVA) | payer MEDICARE, SELFPAY | PROVIDERS: PCP Registered Nurse; Visit Provider Internal Medicine | DX: G47.33 Obstructive sleep apnea (adult) (pediatric) (principal); J44.9 Chronic obstructive pulmonary disease, unspecified | CPT/HCPCS: 99212 ==

== ENCOUNTER 2025-03-19 09:22 | Outpatient (AMB) | payer MEDICARE, SELFPAY ==
--- NOTE | 2025-03-19 09:31 | MHC.OFFVIS ---
Vital Signs 03/19/25 09:32 Height 5 ft 8 in Weight 230 lb 6.129 oz BMI 35.0 BP 110/68 Blood Pressure Location Lt brachial Position Sitting Pulse 69 Pulse Source Pulse Oximeter Pulse Oximetry (%) 94 Oxygen Delivery Method Room Air Intake Visit Reasons: Obstructive sleep apnea Intake Note: pt is here for follow up and started bi-pap and is doing well with it, would like a different mask Induction Coordination Power Engineer Required: No Allergies ibuprofen [IBUPROFEN] Allergy (Unknown, Verified 03/19/25 09:53) GI UPSET morphine [MORPHINE] Allergy (Unknown, Verified 03/19/25 09:53) NAUSEA & VOMITING tramadol [TRAMADOL] Allergy (Unknown, Verified 03/19/25 09:53) SEIZURES Medication List - Last Reconciled 03/19/25 by Christiano Velez MD albuterol sulfate mg inhalation Q4H PRN allopurinol 300 mg PO DAILY alpha lipoic acid 600 mg PO DAILY PRN atorvastatin 40 mg PO BEDTIME fluticasone propion-salmeterol 250-50 mcg/dose (Advair Diskus) 1 ea inhalation BID 30 days fluticasone propionate 50 mcg/actuation sprays intranasal lisinopril-hydrochlorothiazide 10-12.5 mg 1 tab PO DAILY methimazole 5 mg PO DAILY umeclidinium 62.5 mcg/actuation (Incruse Ellipta) 1 inh PO QAM Ventolin HFA 90 mcg/actuation (albuterol sulfate) 2 puffs inhalation Q4-6H PRN NS verapamil ER 240 mg PO DAILY Do you need a note to return to daycare/school/sports/work: No HPI HPI Obstructive sleep apnea: Details: 64 years old gentleman with gross obesity, round face and narrow oropharynx, is a case of severe obstructive sleep apnea. He also is a case of chronic obstructive pulmonary disorder. During CPAP titration he was managed with BiPAP, and relatively high pressures He got his BiPAP set up on 02/28/2025 since then he has used it for more than 50% of the nights, for the past few nights could not use it because the mask is uncomfortable. He would like to try nasal mask. But when he does use the may BiPAP setting he does sleep better. He is well motivated to continue using the BiPAP on a regular basis. His breathing is stable, he denies any frequent any bouts of cough or wheezing. Continues to use Advair and Incruse Ellipta, along with p.r.n. use of albuterol. [facility] Medical History Dyspnea on exertion COPD (chronic obstructive pulmonary disease) Surgical History H/O hernia repair Family History Mother No problems noted. Father Heart attack Social History Alcohol intake: current Alcohol intake frequency: holidays/special occasions only Patient Tobacco Use Status: Never used Tobacco Substance Use Type: Marijuana Current occupational status: retired and disabled Current occupation: right hand dominant Review of Systems Const All systems reviewed & are unremarkable except as noted in HPI and below Eyes Reports no additional complaints ENT Reports no additional complaints Card Denies chest pain, Reports leg edema (Mild, on standing too long) and Reports dyspnea on exertion Resp Reports as per HPI and Reports dyspnea on exertion GI Reports no additional complaints Reports no additional complaints Musc Reports abnormal gait (He has mild unstable gait off and on and uses a walking stick ), Reports back pain, Reports radiating pain into limb and Reports stiffness Skin/Breast Reports system reviewed and no additional complaints, except as documented Neuro Reports abnormal gait (He has mild unstable gait off and on and uses a walking stick ) Psych Reports no additional complaints Endo Reports other (Thyroid dysfunction) Nate/Lymph Reports no additional complaints Aller/Immun Reports no additional complaints Physical Exam Vital Signs: Last Vital Signs Pulse 69 03/19/25 09:32 BP 110/68 03/19/25 09:32 Pulse Ox 94 03/19/25 09:32 Oxygen Delivery Method Room Air 03/19/25 09:32 BMI result Body Mass Index 35.0 Const General: healthy appearing (Except for being overweight), comfortable, no acute distress, alert and awake Orientation/consciousness: patient oriented x3 HEENT Head: Yes normal to inspection General nose exam: No nasal polyps present and No nasal discharge present Face and sinus: Yes sinuses nontender Mouth: oropharynx abnormals (Narrow and crowded, Mallampati class 3) Teeth and gingiva: other (RETROGANTHIA OF THE LOWER JAW.) Throat: Yes posterior oropharynx normal Eyes General: appearance normal, both eyes and all related structures Neck Neck: Yes normal visual inspection, Yes no lymphadenopathy, Yes trachea midline, Yes no JVD and Yes other (Neck circumference 18 in) Thyroid: Thyroid normal Chest Chest palpation & inspection: normal inspection of the chest, normal palpation of entire chest wall and no tenderness Resp Other: Percussion note is resonant, breath sounds are very distant with prolonged expiratory phase. No audible wheezes or crepitations. Cardio Palpation: normal PMI Rate: regular rate Rhythm: regular rhythm Heart sounds: no gallops and no murmurs GI Palpation (GI): Soft to palpation, nontender, No hepatosplenomegaly present and no masses Auscultation: normal bowel sounds Back/Spine/Pelvis Thoracic/Lumbar Spine: thoracic and lumbar spine normal to inspection and thoraco-lumbar ROM limited Skin General skin exam: no rashes or lesions noted Neuro General: patient oriented x3, No gait normal (Has mild impairment of the gait and uses a walking stick) and no focal motor deficits Cranial nerves: Yes CN's II-XII intact bilaterally Extrem General: Yes normal to inspection, Yes no clubbing, cyanosis or edema, Yes no calf tenderness and Yes edema (Chronic stasis edema currently controlled with elastic stockings) Psych Appearance: grossly normal and well kempt Speech and movement: Normal speech and movement present Results Reviewed Results Reviewed: The compliance report shows that he set up was on 522 and he started using his BiPAP on 03/03. Now for the past few nights he has not used it due to irritation of his gumline. On using the BiPAP he still has a high AHI of 42.3 this is due to insufficient use of BiPAP. Assessment & Plan Assessment & Plan (1) COPD (chronic obstructive pulmonary disease): Comment: This gentleman has features of chronic obstructive pulmonary disease. He denies history of smoking cigarettes. He smokes marijuana about 3 times a day. Breathing holly he is doing okay with his current medical regimen, Code(s): J44.9 - Chronic obstructive pulmonary disease, unspecified Category: Medical Plan: Advised to continue using Advair 250-51 inhalation b.i.d.. And Incruse Ellipta. 1 inhalation daily Albuterol HFA 2 puffs Q 6 hours p.r.n. For nasal congestion he may use Flonase 2 spray in each nostril daily (2) SANTOSH (obstructive sleep apnea): Comment: Severe degree of SANTOSH. The AHI was 52/hr, oxygen laura was 76% He underwent CPAP titration study in our sleep lab. He required use of BiPAP with pressure setting of 19/14 cm. Had been started on BIPAP therapy, and was being followed by sleep Medicine Services. As noted above he had BiPAP set up on 02/28/2025. After that he was using it almost every night but for the last 3 nights has not been able to use it due to irritation of his gums. He is requesting to try the nasal mask . He is a mouth breather and he is going to need chinstrap along with that. Code(s): G47.33 - Obstructive sleep apnea (adult) (pediatric) Category: Medical Plan: Had a good discussion with the patient, he seems. To understand about the proper use of CPAP We are ordering a nasal mask RESDED AIR TOUCH N -20 with a chinstrap. Coding Level of Care Code Est Pt Level 3 (40480) Diagnoses COPD (chronic obstructive pulmonary disease) J44.9 SANTOSH (obstructive sleep apnea) G47.33
[2025-03-19 09:32] VITALS: BP 110/68; PULSE 69; O2SAT 94; BMI 35.0
--- OUTSIDE RECORDS SUMMARY | 2025-03-19 10:16 | XMS_ITS | Encounter Summary ---
Author Organization [employer] Address [address] [facility] [address] [place] [address] Care Team Providers Care Cash Surrender Calculator Name Role Phone [place] [facility] Primary Care Provider [phone] Encounter Details Date Type Department Care Team (Late st Contact Info) Description 08/24/2023 [facility] Health Information Management [address] [place] [address] [place], [facility] [address] [place] [address] Social History Tobacco Use Types Packs/Day Years Used Date Smoking Tobacco: Former Cigarettes Smokeless Tobacco: Current Comments:Vapes Alcohol Use Standard Drinks/Week Comments Yes 2 (1 standard drink = 0.6 oz pur e alcohol) Rare Occassions Depression Answer Date Recorded Patient Health Questionnaire-9 Score 0 02/03/2023 Housing Stability Answer Date Recorded What is your housing situation today? I have hola gavlan 07/25/[address] you li [...] t he electric, gas, oil or water [employer] threatened to shut off services in your [...] documented as of this encounter Care Teams Cash Surrender Calculator Relationship Specialty Start Date End Date Nyasia Baum FNP [address] [place] [id number] PCP - General Family Medicine 09/08/22 documented as of this encounter
== END 2025-03-19 09:53 | disposition home or self-care (01) ==
LOC: HO.HPS 09:23
PROVIDERS: PCP Registered Nurse; Visit Provider Internal Medicine
DX: J44.9 Chronic obstructive pulmonary disease, unspecified (principal); G47.33 Obstructive sleep apnea (adult) (pediatric)
CPT/HCPCS: 99213

== ENCOUNTER → 2025-03-19 09:22 | Outpatient (BNVA) | payer MEDICARE, SELFPAY | PROVIDERS: PCP Registered Nurse; Visit Provider Internal Medicine | DX: J44.9 Chronic obstructive pulmonary disease, unspecified (principal); G47.33 Obstructive sleep apnea (adult) (pediatric) | CPT/HCPCS: 99212 ==

== ENCOUNTER 2025-04-30 09:13 | Outpatient (REF) | payer MEDICARE, SELFPAY ==
--- OUTSIDE RECORDS SUMMARY | 2025-04-30 09:47 | XMS_ITS | Encounter Summary ---
Author Organization [employer] Address [address] [facility] 7[address] [place] [address] Care Team Providers Care Sales Clerk Supervisor Name Role Phone [place] [facility] Primary Care Provider [phone] Encounter Details Date Type Department Care Team (Late st Contact Info) Description 08/24/2023 [facility] Health Information Management [address] [place] [address] [place], [facility] [address] [place] [address] Social History Tobacco Use Types Packs/Day Years [...] t he electric, gas, oil or water [employer] threatened to shut off services in your [...] Care Team (Late st Contact Info) Description 05/07/2025 8:30 AM EDT Office Visit [place] [facility] [address] [place] [address] David Simmons, OD [address] [place] [address] 05/15/2025 9:15 AM EDT Office Visit [facility] [address] [place] [address] Nyasia Baum FNP [address] [place] [address] documented as of this encounter Visit Diagnoses Not on filedocumented in this encounter Additional Health Concerns Assessment Noted Time PHQ-9 Depression Total Score: 0 02/04/20 23 10:19 AM EDT documented as of this encounter Care Teams Sales Clerk Supervisor Relationship Specialty Start Date End Date Nyasia Baum FNP [address] [place] [address] PCP - General Family Medicine 09/08/22 documented as of this encounter
[2025-04-30 11:42] LABS: Alanine Aminotransferase 16 U/L (0-40); Albumin Level 4.2 g/dL (3.5-5.0); Alkaline Phosphatase 95 U/L (39-117); Anion Gap 14 (12-20); Aspartate Amino Transferase 22 U/L (5-37); Blood Urea Nitrogen 11 mg/dL (9-16); Calcium 8.8 mg/dL (8.4-10.2); Carbon Dioxide 26 mmol/L (22-29); Chloride 104 mmol/L (96-108); Cholesterol 141 mg/dL (<200); Estimated Glomerular Filt Rate > 60; HDL Cholesterol 58 mg/dL (>40); Potassium 4.7 mmol/L (3.3-5.1); Sodium 139 mmol/L (135-145); Total Protein 7.7 g/dL (6.5-8.0); Triglycerides 97 mg/dL (<150)
== END 2025-04-30 09:14 | disposition home or self-care (01) ==
LOC: HO.HHCL 09:13
PROVIDERS: PCP Registered Nurse; Visit Provider Registered Nurse
DX: I10 Essential (primary) hypertension (principal)
CPT/HCPCS: 36415; 80053; 80061

== ENCOUNTER 2025-05-23 09:48 | Outpatient (REF) | payer MEDICARE, SELFPAY ==
[2025-05-23 10:55] LABS: Venous Blood Gas Refer to POC result
[2025-05-23 10:56] LABS: VBG HCO3 32 mmol/L (22-26); VBG O2 % Saturation 33.0 %
[2025-05-23 12:03] LABS: Free T4 (Free Thyroxine) 0.93 ng/dL (0.71-1.85)
== END 2025-05-23 09:49 | disposition home or self-care (01) ==
LOC: HO.LAB 09:48
PROVIDERS: PCP Registered Nurse; Visit Provider Internal Medicine
DX: G47.33 Obstructive sleep apnea (adult) (pediatric) (principal); G47.31 Primary central sleep apnea; E05.90 Thyrotoxicosis, unspecified without thyrotoxic crisis or storm; J44.9 Chronic obstructive pulmonary disease, unspecified; R06.09 Other forms of dyspnea; Z99.89 Dependence on other enabling machines and devices; Z79.899 Other long term (current) drug therapy
CPT/HCPCS: 36415; 82803; 84439; 84443; 99212

== ENCOUNTER 2025-05-23 09:48 | Outpatient (AMB) | payer MEDICARE, SELFPAY ==
--- NOTE | 2025-05-23 09:57 | MHC.OFFVIS ---
Vital Signs 05/23/25 09:58 Height 5 ft 8 in Weight 220 lb 7.396 oz BMI 33.5 BP 110/70 Blood Pressure Location Lt brachial Position Sitting Pulse 86 Pulse Source Pulse Oximeter Pulse Oximetry (%) 94 Oxygen Delivery Method Room Air Intake Visit Reasons: Obstructive sleep apnea Intake Note: pt is here for follow up and states he has trouble in moring with getting a good breath in, also feels like he is full of air, never received chin strap, also,short of breath with stairs, walking fast, long distances. pt would like a nebulizer if MD feels it would benefit him. Junior Account Manager Required: No Allergies ibuprofen (IBUPROFEN) Allergy (Unknown, Verified 05/23/25 10:31) GI UPSET morphine (MORPHINE) Allergy (Unknown, Verified 05/23/25 10:31) NAUSEA & VOMITING tramadol (TRAMADOL) Allergy (Unknown, Verified 05/23/25 10:31) SEIZURES Medication List - Last Reconciled 05/23/25 by Christiano Velez MD albuterol sulfate mg inhalation Q4H PRN allopurinol 300 mg PO DAILY alpha lipoic acid 600 mg PO DAILY PRN atorvastatin 40 mg PO BEDTIME fluticasone propion-salmeterol 250-50 mcg/dose (Advair Diskus) 1 ea inhalation BID 30 days fluticasone propionate 50 mcg/actuation sprays intranasal lisinopril-hydrochlorothiazide 10-12.5 mg 1 tab PO DAILY methimazole 5 mg PO DAILY umeclidinium 62.5 mcg/actuation (Incruse Ellipta) 1 inh PO QAM Ventolin HFA 90 mcg/actuation (albuterol sulfate) 2 puffs inhalation Q4-6H PRN NS verapamil ER 240 mg PO DAILY Do you need a note to return to daycare/school/sports/work: No HPI HPI Obstructive sleep apnea: Details: This 64 years old gentleman, is grossly obese, especially with abdominal obesity, He is a case of mixed sleep apnea ( obstructive and central ) Had CPAP titration in the sleep lab and after that has been started on BiPAP therapy. With the use of BiPAP he sleeps better, and has less daytime sleepiness. His previous compliance reports have shown a high residual AHI predominantly due to central apneas. He admits that he does use the BiPAP every night . He is less sleepy during the daytime. * reason for his residual central sleep apneas is use of narcotic agents, and currently being on methadone 116 mg daily. He claims that his cough and wheezing are less but he still gets short of breath very easily, even though he is using his bronchodilators regularly. Spirometry last year in the office was essentially normal. He is on methimazole 5 mg daily , and he does not know. Why he is on this pill Most likely he was found to be in Hyperthyroid state, and I do not see any recent T4/TSH levels. [facility] Medical History Hyperthyroidism Dyspnea on exertion COPD (chronic obstructive pulmonary disease) Surgical History H/O hernia repair Family History Mother No problems noted. Father Heart attack Social History Alcohol intake: current Alcohol intake frequency: holidays/special occasions only Patient Tobacco Use Status: Never used Tobacco Substance Use Type: Marijuana Current occupational status: retired and disabled Current occupation: right hand dominant Review of Systems Const All systems reviewed & are unremarkable except as noted in HPI and below Eyes Reports no additional complaints ENT Reports no additional complaints Card Denies chest pain, Reports leg edema (Mild, on standing too long) and Reports dyspnea on exertion Resp Reports as per HPI and Reports dyspnea on exertion GI Reports no additional complaints Reports no additional complaints Musc Reports abnormal gait (He has mild unstable gait off and on and uses a walking stick ), Reports back pain, Reports radiating pain into limb and Reports stiffness Skin/Breast Reports system reviewed and no additional complaints, except as documented Neuro Reports abnormal gait (He has mild unstable gait off and on and uses a walking stick ) Psych Reports no additional complaints Endo Reports other (Thyroid dysfunction) Nate/Lymph Reports no additional complaints Aller/Immun Reports no additional complaints Physical Exam Vital Signs: Last Vital Signs Pulse 86 05/23/25 09:58 BP 110/70 05/23/25 09:58 Pulse Ox 94 05/23/25 09:58 Oxygen Delivery Method Room Air 08/14/25 09:58 BMI result Body Mass Index 33.5 Const General: healthy appearing (Except for being overweight), comfortable, no acute distress, alert and awake Orientation/consciousness: patient oriented x3 HEENT Head: Yes normal to inspection General nose exam: No nasal polyps present and No nasal discharge present Face and sinus: Yes sinuses nontender Mouth: oropharynx abnormals (Narrow and crowded, Mallampati class 3) Teeth and gingiva: other (RETROGANTHIA OF THE LOWER JAW.) Throat: Yes posterior oropharynx normal Eyes General: appearance normal, both eyes and all related structures Neck Neck: Yes normal visual inspection, Yes no lymphadenopathy, Yes trachea midline, Yes no JVD and Yes other (Neck circumference 18 in) Thyroid: Thyroid normal Chest Chest palpation & inspection: normal inspection of the chest, normal palpation of entire chest wall and no tenderness Resp Other: Percussion note is resonant, breath sounds are very distant with prolonged expiratory phase. No audible wheezes or crepitations. Cardio Palpation: normal PMI Rate: regular rate Rhythm: regular rhythm Heart sounds: no gallops and no murmurs GI Palpation (GI): Soft to palpation, nontender, No hepatosplenomegaly present and no masses Auscultation: normal bowel sounds Back/Spine/Pelvis Thoracic/Lumbar Spine: thoracic and lumbar spine normal to inspection and thoraco-lumbar ROM limited Skin General skin exam: no rashes or lesions noted Neuro General: patient oriented x3, No gait normal (Has mild impairment of the gait and uses a walking stick) and no focal motor deficits Cranial nerves: Yes CN's II-XII intact bilaterally Extrem General: Yes normal to inspection, Yes no clubbing, cyanosis or edema, Yes no calf tenderness and Yes edema (Chronic stasis edema currently controlled with elastic stockings) Psych Appearance: grossly normal and well kempt Speech and movement: Normal speech and movement present Results Reviewed Results Reviewed: Compliance report is reviewed. HE USED 28/30 NIGHTS, 93%. AVERAGE USE IT PER NIGHT 4 HOURS 46 MINUTE. PRESSURE SETTING 19/14 CM. NO AIR LEAK NOTED. RESIDUAL AHI 26.6, PREDOMINANTLY DUE TO CENTRAL APNEAS. IT SHOULD BE NOTED THAT EVEN THOUGH AHI IS STILL QUITE HIGH IT, IT IS DEFINITELY IMPROVED COMPARED TO THE LAST COMPLIANCE REPORT. Assessment & Plan Assessment & Plan (1) SANTOSH (obstructive sleep apnea): Comment: Severe degree of SANTOSH. The AHI was 52/hr, oxygen laura was 76% He underwent CPAP titration study in our sleep lab. He required use of BiPAP with pressure setting of 19/14 cm. Had been started on BIPAP therapy, and was being followed by sleep Medicine Services. As noted above he had BiPAP set up on 02/28/2025. He has been using the BiPAP every night and claims that he sleeps much better than before.. He wanted to try using nasal mask with a chinstrap but has not received. The chinstrap yet So he is still using fullface mask, and compliance report shows that there is no air leak. According to compliance report he still has significant residual AHI but mostly due to central apneas. I talked to him in detail, checked about being on any narcotic meds. He has past history. Of opioid abuse Currently on large dose of methadone, 116 mg daily . And I think the central apneas or mainly due to using methadone. Code(s): G47.33 - Obstructive sleep apnea (adult) (pediatric) Category: Medical Plan: Explained to the patient. Commended for using the BiPAP regularly every night. Advise that if he could use for 6-7 hours per night will be better. Advise that he should continue his follow-up for methadone therapy and hopefully as the dose is reduced further his central apnea activity will also decrease. (2) Central sleep apnea: Comment: He does have significant amount of central apneas. As noted above under SANTOSH central apneas or mainly cause by methadone. Code(s): G47.31 - Primary central sleep apnea Category: Medical Plan: Gained discussed with the patient and I educated him about the presence of central apneas, indicating hypoventilation at night. I discussed with him the importance of using BiPAP regularly. Also discuss the importance of gradual reduction in the dose of methadone. (3) COPD (chronic obstructive pulmonary disease): Comment: This gentleman has features of chronic obstructive pulmonary disease. He denies history of smoking cigarettes. He smokes marijuana about 3 times a day. Breathing holly he is complaining of getting short of breath on exertion. He is empirically kept on bronchodilator regimen including Advair and Incruse Ellipta. Code(s): J44.9 - Chronic obstructive pulmonary disease, unspecified Category: Medical Plan: Continue Advair 250-51 inhalation b.i.d., Incruse Ellipta 1 inhalation daily. Use Ventolin 2 puffs Q 4-6 hours only sparingly if there is obvious wheezing. I have ordered complete pulmonary function test for re-evaluation Also ordered venous blood gas study to check for hypoventilation/ chronic respiratory failure PATIENT EDUCATED AND INSTRUCTED TO DO DEEP BREATHING EXERCISES WITH PURSED LIP TECHNIQUE,X10, EVERY HOUR IF POSSIBLE. Orders: Orders Venous Blood Gas Today E05.90 - Thyrotoxicosis, unspecified without thyrotoxic crisis or storm, G47.31 - Primary central sleep apnea, J44.9 - Chronic obstructive pulmonary disease, unspecified PFT pulmonary function test Today G47.31 - Primary central sleep apnea, J44.9 - Chronic obstructive pulmonary disease, unspecified, R06.09 - Other forms of dyspnea TSH reflex Free T4 Today E05.90 - Thyrotoxicosis, unspecified without thyrotoxic crisis or storm Coding Level of Care Code Est Pt Level 4 (09317) Diagnoses SANTOSH (obstructive sleep apnea) G47.33 Central sleep apnea G47.31 COPD (chronic obstructive pulmonary disease) J44.9
[2025-05-23 09:58] VITALS: BP 110/70; PULSE 86; O2SAT 94; BMI 33.5
--- OUTSIDE RECORDS SUMMARY | 2025-05-23 10:29 | XMS_ITS | Encounter Summary ---
Author Organization [employer] Address [address] [facility] 7t [place] [address] Care Team Providers Care Airport Ramp Agent Name Role Phone [place] [facility] Primary Care Provider [phone] Encounter Details Date Type Department Care Team (Late st Contact Info) Description 08/24/2023 [facility] Health Information Management [address] [place] [address] [place], [facility] [address] [place] [address] Social History Tobacco Use Types Packs/Day Years [...] t he electric, gas, oil or water [employer] threatened to shut off services in your [...] Care Team (Late st Contact Info) Description 05/28/2025 10:00 AM EDT Office Visit [facility] [address] [place] [address] Giuseppe Zapien LLD [address] [place] [phone] 06/04/2025 8:30 AM EDT Office Visit [facility] [address] [place] [id number] Giuseppe Zapien LLD [address] [place] [phone] 06/11/2025 2:00 PM EDT Office Visit [address] [address] Giuseppe Zapien LLD [address] [place] [id number] 11/26/2025 8:30 AM EST Office Visit [address] [address] Nika Coreas documented as of this encounter Visit Diagnoses Not on filedocumented in this encounter Additional Health Concerns Assessment Noted Time PHQ-9 Depression Total Score: 0 02/04/20 23 10:19 AM EDT documented as of this encounter Care Teams Airport Ramp Agent Relationship Specialty Start Date End Date Nyasia Baum FNP [address] [place] [id number] PCP - General Family Medicine 09/08/22 documented as of this encounter
== END 2025-05-23 10:32 | disposition home or self-care (01) ==
LOC: HO.HPS 09:49
PROVIDERS: PCP Registered Nurse; Visit Provider Internal Medicine
DX: G47.33 Obstructive sleep apnea (adult) (pediatric) (principal); G47.31 Primary central sleep apnea; J44.9 Chronic obstructive pulmonary disease, unspecified
CPT/HCPCS: 99214

== ENCOUNTER 2025-09-09 11:04 | Outpatient (REF) | payer MEDICARE, SELFPAY ==
--- NOTE | ~2025-09-09 | XR_ITS ---
EXAMINATION: XR CHEST CLINICAL INFORMATION: COPD exacerbation. R/o consolidation COMPARISON: 04/13/2023 TECHNIQUE: 2 views of the chest were obtained. FINDINGS: The cardiac, hilar, and mediastinal contours are normal. Lungs are mildly diffusely hyperaerated with flattened hemidiaphragms, findings suggestive of COPD. There is linear scarring in the right lower lobe distribution. Lungs are otherwise grossly clear. There is no pneumothorax or pleural effusion. There is no focal osseous or soft tissue abnormality. XR/XR chest 2V IMPRESSION: COPD. No active superimposed disease. Electronically signed by: Beny Brush MD 09/09/2025 12:49 PM [facility]
--- OUTSIDE RECORDS SUMMARY | 2025-09-09 10:30 | XMS_ITS | Encounter Summary ---
Author Organization [employer] Address 75 [facility] 7 [place] [address] Care Team Providers Care Formation Testing Operator Name Role Phone Nyasia Baum [facility] Primary Care Provider [phone] Reason for Visit * Reason Comments Follow-up Encounter Details Date Type Department Care Team ([facility] st Contact Info) Description 09/09/2025 10:30 AM EST Office Visit [facility] MEDICINE [address] [place], [place] [phone] Sarika, [place], [facility] [address] [place], [place] [phone] Chronic obstructive pulmonary disease, unspecified COPD type (CMS/HCC) (HCC) (Primary Dx) Social History Tobacco Use Types Packs/Day Years Used Date Smoking Tobacco: Former Cigarettes Smokeless Tobacco: Current Tobacco Cessation:Ready to Q uit: Not Asked; Counseling Given: Not Answered Comments:Vapes Alcohol Use Standard Drinks/Week Comments Not Currently 2 (1 standard drink = 0.6 oz pur e alcohol) Rare Occassions Depression Answer Date Recorded Patient Health Questionnaire-9 Score 0 09/09/2025 Patient Health Questionnaire-9 Score 0 09/09/2025 Last PHQ-9: Questionnaire Data Not on file 1 11/10/2024 Housing Stability Answer Date Recorded What is [...] Date Recorded Patient Health Questionnaire-2 Score 0 09/09/2025 Internet Access Answer Date Recorded Internet Access [...] Sign Reading Time Taken Comments Blood Pressure 130/84 09/09/2025 10:33 AM EST Pulse 64 09/09/2025 10:33 AM EST Temperature 36.1 C (97 F) 09/09/2025 10:33 AM EST Respiratory Rate 20 09/09/2025 10:33 AM EST Oxygen Saturation - - Inhaled Oxygen Concentration - - Weight 103 kg (227 lb 9.6 oz) 09/09/2025 10:33 A M EST Height 177.8 cm (5' 10 ) 09/09/2025 10:33 AM EST Body Mass Index 32.66 09/09/2025 10:33 AM EST documented in this encounter Functional Status * Over the past 2 weeks, how often have you been bothered by any of the following problems? Question Answer Date of Assessment Author Patient Health Questionnaire-2 Score 0 09/09/2025 10:39 AM EST Estephania Calderon MA * Little interest or pleasure in doing things Answer Date of Assessment Author Not at all 09/09/2025 10:39 AM EST Estephania Jean MA * Feeling down, depressed, or hopeless Answer Date of Assessment Author Not at all 09/09/2025 10:39 AM EST Estephania Jean MA * Trouble falling or staying asleep, or sleeping too much Answer Date of Assessment Author Not at all 09/09/2025 10:39 AM Estephania Hoffmann MA * Feeling tired or having little energy Answer Date of Assessment Author Not at all 09/09/2025 10:39 AM Estephania Hoffmann MA * Poor appetite or overeating Answer Date of Assessment Author Not at all 09/09/2025 10:39 AM Estephania Hoffmann MA * Feeling bad about yourself - or that you are a failure or have let yourself or your family down Answer Date of Assessment Author Not at all 09/09/2025 10:39 AM Estephania Hoffmann MA * Trouble concentrating on things, such as reading the newspaper or watching television Answer Date of Assessment Author Not at all 09/09/2025 10:39 AM Estephania Hoffmann MA * Moving or speaking so slowly that other people could have noticed? Or the opposite - being so fidgety or restless that you have been moving around a lot more than usual. Answer Date of Assessment Author Not at all 09/09/2025 10:39 AM Estephania Hoffmann MA * Thoughts that you would be better off or hurting yourself in some way Answer Date of Assessment Author Not at all 09/09/2025 10:39 AM Estephania Hoffmann MA * Patient Health Questionnaire-9 Score Answer Date of Assessment Author 0 09/09/2025 10:39 AM Estephania Hoffmann MA * Over the last 2 weeks, how often have you been bothered by any of the following problems? Question Answer Date of Assessment Author Feeling nervous, anxious, or on edge 0 09/09/2025 10:39 AM Estephania Gallo MA Not being able to stop or control worrying 0 09/09/2025 10:39 AM Estephania Gallo MA Worrying too much about different things 0 09/09/2025 10:39 AM EST Estephania Rico MA Trouble relaxing 0 09/09/2025 10:39 AM EST Estephania Rico MA Being so restless that it is hard to sit still 0 09/09/2025 10:39 AM EST Estephania Rico MA Becoming easily annoyed or irritable 0 09/09/2025 10:39 AM EST Estephania Rico MA Feeling afraid as if something awful might happen 0 09/09/2025 10:39 AM EST Estephania Gilmore MA TRICIA-7 Total Score 0 09/09/2025 10:39 AM EST Estephania Rico MA documented as of this encounter Plan of Treatment Upcoming Encounters Date Type Department Care Team (Late st Contact Info) Description 11/26/2025 8:30 AM EST Office Visit [facility] DENTAL [address] [place] [address] Nika Coreas documented as of this encounter Procedures Procedure Name Priority Date/Time Associated Diagnosis Comments XR CHEST 2 VIEWS Routine 09/09/2025 12:0 2 PM EST Chronic obstructive pulmonary disease, unspecified COPD type (CMS/HCC) ([facility]) documented in this encounter Results * XR Chest 2 Views (09/09/2025 12:02 PM EST) Anatomical Region Laterality Modality Chest Radiographic Jill ging 09/09/2025 12:0 2 PM EST Narrative 09/09/2025 12:52 PM EST [facility] [address] [place] [address] XRay Report Signed Patient: Victor Manuel Jay MR#: [id number] : 1960 Acct:[id number] Age/Sex: 64 / M ADM Date: 09/09/25 Loc: HHCX Attending Dr: Nyasia DELGADO Ordering Physician: Nyasia Baum Date of Service: 09/09/25 Procedure(s): XR chest 2V Accession Number(s): [id number] cc: [place],Nyasia HEAD BANDER AND LINER OPERATOR Reason for Exam: COPD exacerbation. R/o consolidation EXAMINATION: XR CHEST CLINICAL INFORMATION: COPD exacerbation. R/o consolidation COMPARISON: 04/13/2023 TECHNIQUE: 2 views of the chest were obtained. FINDINGS: The cardiac, hilar, and mediastinal contours are normal. Lungs are mildly diffusely hyperaerated with flattened hemidiaphragms, findings suggestive of COPD. There is linear scarring in the right lower lobe distribution. Lungs are otherwise grossly clear. There is no pneumothorax or pleural effusion. There is no focal osseous or soft tissue abnormality. XR/XR chest 2V IMPRESSION: COPD. No active superimposed disease. Electronically signed by: Beny Brush MD 09/09/2025 12:49 PM EST Dictated By: Beny Brush MD Signed By: <Electronically signed by Beny Brush MD in OV> 09/09/25 1249 DD/ 1202 TD/TT: 09/09/25 1204 Mining Engineering Technologist: Procedure Note Donotuseinterpreter, Image - 09/09/[address] [address] XRay Report Signed Patient: Victor Manuel JayMR#: [id number] : 1960cct:[id number] Age/Sex: 64 / MADM Date: 09/09/25 Loc: HO.HHCX Attending Dr: Nyasia Baum HEAD BANDER AND LINER OPERATOR Ordering Physician: Nyasia Baum Date of Service: 09/09/25 Procedure(s): XR chest 2V Accession Number(s): [id number] cc: Nyasia Baum [facility] Reason for Exam: COPD exacerbation. R/o consolidation EXAMINATION: XR CHEST CLINICAL INFORMATION: COPD exacerbation. R/o consolidation COMPARISON: 04/13/2023 TECHNIQUE: 2 views of the chest were obtained. FINDINGS: The cardiac, hilar, and mediastinal contours are normal. Lungs are mildly diffusely hyperaerated with flattened hemidiaphragms, findings suggestive of COPD. There is linear scarring in the right lower lobe distribution. Lungs are otherwise grossly clear. There is no pneumothorax or pleural effusion. There is no focal osseous or soft tissue abnormality. XR/XR chest 2V IMPRESSION: COPD. No active superimposed disease. Electronically signed by: Beny Brush MD 09/09/2025 12:49 PM EST Dictated By: Beny Brush MD Signed By: <Electronically signed by Beny Brush MD in OV> 09/09/25 1249 DD/ 1202 TD/TT: 09/09/25 1204 Mining Engineering Technologist: [facility] IMG XR PROCEDURES Edited Resu lt - Final documented in this encounter Visit Diagnoses Diagnosis Chronic obstructive pulmonary disease, unspecified COPD type (CMS/HCC) (HCC)- Primary documented in this encounter Additional Health Concerns Assessment Noted Time PHQ-9 Depression Total Score: 0 09/09/20 10:39 AM EST documented as of this encounter Care Teams Formation Testing Operator Relationship Specialty Start Date End Date Nyasia Baum FNP [address] [place] [address] PCP - General Family Medicine 09/08/22 documented as of this encounter
--- OUTSIDE RECORDS SUMMARY | 2025-09-09 14:30 | XMS_ITS | Encounter Summary ---
Author Organization [employer] Address 75 [facility] 7 [place] [address] Care Team Providers Care Copper Plater Name Role Phone Nyasia Baum SWITCH INSPECTOR Primary Care Provider [phone] Encounter Details Date Type Department Care Team (Late st Contact Info) Description 11/15/2022 Orders Only [facility] [address] [place] [address] Abigail Wilkins LPN Social History Tobacco Use [...] AM EST Office Visit [facility] DENTAL [address] [place] [address] Nika Coreas documented as of this encounter [...] EST) VBG pH 7.41 7.32 - 7.43 [facility] VBG PCO2 53 mmHg [facility] PO2 34 mmHg [facility] Base Excess 8.1 mmol/L [facility] VBG HCO3 34(H) 22 - 26 mmol/L [facility] O2 Sat, Reji 48.0 % [facility] 09/26/2023 10:5 8 AM EST 09/26/2023 11:27 AM EST Generic External Data Provider LAB BLOOD ORDERAB LES Final Result Performing Organization Address [facility] [place]/[facility]/ZIP Co de Phone Number [facility] [address] [place] [phone] * T4, Free (09/05/2023 10:06 AM EST) Free T4 (Free Thyroxine) 0.87 0.71 - 1.85 ng/dL [facility] 09/05/2023 10:0 6 AM EST 09/05/2023 11:20 AM EST [facility] SWITCH INSPECTOR LAB BLOOD ORDERABLES Final Re sult Performing Organization Address City/[facility] de Phone Number [facility] [address] [place] [phone] * CT Abdomen Pelvis w/ Contrast (12/15/2022 12:40 PM EST) Anatomical Region Laterality Modality Body, Pelvis, Abdomen Computed T omography 12/15/2022 12:4 0 PM EST Narrative 12/20/2022 2:28 PM EDT [address] [address] [address] Scan Report Signed Patient: Victor Manuel Jay MR#: [id number] : 1960 Acct:[id number] Age/Sex: 62 / M ADM Date: 12/15/22 Loc: HO.CT Attending Dr: Rica DELGADO Ordering Physician: Rica Haider Date of Service: 12/15/22 Procedure(s): CT abdomen pelvis w IV con Accession Number(s): [id number] cc: Rica Haider EXAMINATION: CT ABDOMEN AND [...] OV> 12/20/22 1425 DD/ 1240 TD/TT: Extension Agent: KARI Procedure Note Donotuseinterpreter, Image - 12/20/[address] [place] [address] [address] Scan Report Signed Patient: Victor Manuel JayMR#: [id number] : 1960cct:[id number] Age/Sex: 62 / MADM Date: 12/15/22 Loc: HO.CT Attending Dr: Rica Haider [facility] Ordering Physician: Rica Haider Date of Service: 12/15/22 Procedure(s): CT abdomen pelvis w IV con Accession Number(s): [id number] cc: Rica Haider EXAMINATION: CT ABDOMEN AND [...] OV> 12/20/22 1425 DD/ 1240 TD/TT: Extension Agent: KARI [facility] External Provider IMG CT PROCEDURES Edited Result - Final * POCT Creatinine GFR (12/15/2022 11:22 AM EST) POCT Creatinine 0.6 0.5 - 1.4 mg/dL [facility] GFR POC 60 [facility] Comment:Chronic Kidney Disea se: Estimated GFR < 60 mL/min/1.38q8Kavnmd Kidney Disease: Estimated GFR < 15 mL/min/1.73m2 12/15/2022 11:2 2 AM EST 12/15/2022 2:40 PM EST Narrative [facility] - 12/15/2022 2:42 PM EST [id number] us [facility] Exter nal Provider LAB POINT OF CARE TEST DOCKED DEVICE ORDERABLES Final Result [facility] [address] [place] [phone] documented in this encounter Visit Diagnoses Not on filedocumented in this encounter Care Teams Copper Plater Relationship Specialty Start Date End Date Nyasia Baum FNP [address] [place] [phone] PCP - General Family Medicine 09/08/22 documented as of this encounter
--- OUTSIDE RECORDS SUMMARY | 2025-09-09 14:30 | XMS_ITS | Encounter Summary ---
Author Organization [employer] Address 75 [facility] 7t [place] [address] Care Team Providers Care Radioactive Waste Disposal Dispatcher Name Role Phone [place] [facility] Primary Care Provider [phone] Encounter Details Date Type Department Care Team (Late st Contact Info) Description 08/24/2023 [facility] Health Information Management [address] [place] [address] [place], [facility] [address] [place] [address] Social History Tobacco Use Types Packs/Day Years [...] t he electric, gas, oil or water [employer] threatened to shut off services in your [...] Description 11/26/2025 8:30 AM EST Office Visit [facility] DENTAL [address] [place] [address] Nika Coreas documented as of this encounter Visit Diagnoses Not on filedocumented in this encounter Additional Health Concerns Assessment Noted Time PHQ-9 Depression Total Score: 0 02/04/20 23 10:19 AM EDT documented as of this encounter Care Teams Radioactive Waste Disposal Dispatcher Relationship Specialty Start Date End Date Nyasia Baum FNP [address] [place] [phone] PCP - General Family Medicine 09/08/22 documented as of this encounter
--- OUTSIDE RECORDS SUMMARY | 2025-09-09 14:30 | XMS_ITS | Encounter Summary ---
Author Organization [employer] Address 75 [facility] 7t [place] [address] Care Team Providers Care Rn Surgical Name Role Phone [place], [facility] Primary Care Provider [phone] Reason for Visit * Reason Comments Med Refill Encounter Details Date Type Department Care Team ([facility] st Contact Info) Description 03/25/2025 Refill [facility] MEDICINE [address] [place], [place] [phone] [facility] [address] [place] [address] Shortness of breath Social History Tobacco Use [...] Description 11/26/2025 8:30 AM EST Office Visit [facility] DENTAL [address] [place] [address] Nika Coreas documented as of this encounter Visit Diagnoses Diagnosis Shortness of breath documented in this encounter Additional Health Concerns Assessment Noted Time PHQ-9 Depression Total Score: 0 12/29/19 25 9:43 AM EDT documented as of this encounter Care Teams Rn Surgical Relationship Specialty Start Date End Date Nyasia Baum FNP [address] [place] [phone] PCP - General Family Medicine 09/08/22 documented as of this encounter
--- OUTSIDE RECORDS SUMMARY | 2025-09-09 14:30 | XMS_ITS | Encounter Summary ---
Author Organization [employer] Address 75 [facility] 7 [place] [address] Care Team Providers Care Specialty Food Products Supervisor Name Role Phone Nyasia Baum [facility] Primary Care Provider [phone] Reason for Visit * Reason Onset Date Comments Durable Medical Equipment 12/15/2022 Encounter Details Date Type Department Care Team (Late st Contact Info) Description 12/15/2022 Telephone [facility] MEDICINE [address] [place], [place] [phone] [place] [facility] [address] [place] [address] Durable Medical Equipment Social History Tobacco Use [...] 12/15/2022 10:20 AM EST TC to career counselor and provided the number for sleep medicine where they monitor patient SANTOSH. * Telephone Encounter - Brandon Danielito - 12/15/2022 9:38 AM EST Tc from devang with [facility] career counselor Requesting a script for a cpap machine for pt requesting to be faxed over to [facility] fax# [phone] Please contact devang with [facility] at [phone] documented in this encounter Plan of Treatment Upcoming Encounters Date Type Department Care Team (Late st Contact Info) Description 11/26/2025 8:30 AM EST Office Visit [facility] DENTAL [address] [place] [address] Nika Coreas documented as of this encounter Visit Diagnoses Not on filedocumented in this encounter Care Teams Specialty Food Products Supervisor Relationship Specialty Start Date End Date Nyasia Baum FNP [address] [place] [phone] PCP - General Family Medicine 09/08/22 documented as of this encounter
--- OUTSIDE RECORDS SUMMARY | 2025-09-09 14:30 | XMS_ITS | Encounter Summary ---
Author Organization [employer] Address 75 [facility] 7t [place] [address] Care Team Providers Care Manager Wastewater Name Role Phone [facility] Primary Care Provider [phone] Encounter Details Date Type Department Care Team ([facility] st Contact Info) Description 04/06/2024 Telephone [facility] MEDICINE [address] [place], [place] [phone] [facility] [address] [place], [place] [phone] Social History Tobacco Use Types Packs/Day Years [...] the past 12 months, has t he [employer] oil or water company threatened to shut [...] AM EST Office Visit [facility] DENTAL [address] [place] [address] Nika Coreas documented as of this encounter Visit Diagnoses Not on filedocumented in this encounter Additional Health Concerns Assessment Noted Time PHQ-9 Depression Total Score: 0 02/04/20 23 10:19 AM EDT documented as of this encounter Care Teams Manager Wastewater Relationship Specialty Start Date End Date Nyasia Baum FNP [address] [place] [phone] PCP - General Family Medicine 09/08/22 documented as of this encounter
--- OUTSIDE RECORDS SUMMARY | 2025-09-09 14:30 | XMS_ITS | Encounter Summary ---
Author Organization [employer] Address 75 [facility] 7t [place] [address] Care Team Providers Care Pit Hoist Operator Name Role Phone [place], [facility] Primary Care Provider [phone] Reason for Visit * Reason Comments Med Refill Encounter Details Date Type Department Care Team ([facility] st Contact Info) Description 05/09/[address] [facility] MEDICINE [address] [place], [place] [phone] [facility] 230 [place] [address] Shortness of breath Social History Tobacco Use [...] Description 11/26/2025 8:30 AM EST Office Visit [facility] DENTAL [address] [place] [address] Nika Coreas documented as of this encounter Visit Diagnoses Diagnosis Shortness of breath documented in this encounter Additional Health Concerns Assessment Noted Time PHQ-9 Depression Total Score: 0 12/29/19 25 9:43 AM EDT documented as of this encounter Care Teams Pit Hoist Operator Relationship Specialty Start Date End Date Nyasia Baum FNP [address] [place] [address] PCP - General Family Medicine 09/08/22 documented as of this encounter
--- OUTSIDE RECORDS SUMMARY | 2025-09-09 14:30 | XMS_ITS | Encounter Summary ---
Author Organization [employer] Address 75 [facility] 7 [place] [address] Care Team Providers Care Threshing Machine Operator Name Role Phone Cristian Kilgore MD Primary Care Provider Nyasia Downs Primary Care Provider [phone] Encounter Details Date Type Department Care Team [...] Description 11/26/2025 8:30 AM EST Office Visit [facility] DENTAL [address] [place] [address] Nika Coreas documented as of this encounter Visit Diagnoses Not on filedocumented in this encounter Care Teams Threshing Machine Operator Relationship Specialty Start Date End Date Cristian Kilgore MD PCP - General Family Medicine 03/28/20 09/07/22 Nyasia Baum FNP [address] [place] [address] PCP - General Family Medicine 09/08/22 documented as of this encounter
--- OUTSIDE RECORDS SUMMARY | 2025-09-09 14:31 | XMS_ITS | Encounter Summary ---
Author Organization [employer] Address 75 [facility] 7t [place] [address] Care Team Providers Care Senior Accounting Analyst Name Role Phone Nyasia Baum [facility] Primary Care Provider [phone] Reason for Visit * Reason Onset Date Comments chart prep 09/04/2025 Encounter Details Date Type Department Care Team ([facility] st Contact Info) Description 09/04/2025 Telephone [facility] MEDICINE [address] [place], [place] [phone] [place] [facility] [address] [place] [address] chart prep Social History Tobacco Use Types Packs/Day Years Used Date Smoking Tobacco: Former Cigarettes Smokeless Tobacco: Current Comments:Vapes Alcohol Use Standard Drinks/Week Comments Not Currently 2 (1 standard drink = 0.6 oz pur e alcohol) Rare Occassions Depression Answer Date Recorded Patient Health Questionnaire-9 Score 0 07/05/2025 Patient Health Questionnaire-9 Score 0 07/05/2025 Last PHQ-9: Questionnaire Data Not on file 0 07/05/2025 Housing Stability Answer Date Recorded What is [...] Date Recorded Patient Health Questionnaire-2 Score 0 07/05/2025 Internet Access Answer Date Recorded Internet Access [...] encounter Miscellaneous Notes * Telephone Encounter - Linda Jackson MA - 09/04/2025 11:59 AM EST Chart Prep Labs: done Images: not applicable Referrals: not applicable Vaccines due: not applicable Screenings: not applicable Overdue care gaps: SBIRT and Disability screen documented in this encounter Plan of Treatment Upcoming Encounters Date Type Department Care Team (Late st Contact Info) Description 11/26/2025 8:30 AM EST Office Visit [facility] DENTAL [address] [place] [address] Nika Coreas documented as of this encounter Visit Diagnoses Not on filedocumented in this encounter Additional Health Concerns Assessment Noted Time PHQ-9 Depression Total Score: 0 07/05/20 25 9:29 AM EDT documented as of this encounter Care Teams Senior Accounting Analyst Relationship Specialty Start Date End Date Nyasia Baum FNP [address] [place] [phone] PCP - General Family Medicine 09/08/22 documented as of this encounter
--- OUTSIDE RECORDS SUMMARY | 2025-09-09 14:31 | XMS_ITS | Clinical Summary ---
Author Organization [employer] Address [address] [place] [address] [address] [place] [address] Care Team Providers Care Field Investigator Name Role Phone Nyasia Baum FROZEN MEAT CUTTER Primary Care Provider [phone] Allergies Active Allergy Reactions Criticality Noted Date [...] MG tablet 125mg 06/10/20 21 Active albuterol 108 (90 Base) MCG/ACT inhalerIndication s:Shortness of breath INHALE 2 PUFFS INTO THE LUNGS EVERY 4 TO 6 HOURS NEEDED 8.5 g 1 02/19/20 23 Active Fluticasone-Salme terol 250-50 MCG/ACT aerosol powder Take 1 puff by mouth 2 times daily. For COPD 04/17/20 23 Active Alpha-Lipoic Acid 600 MG capsuleIndication s:Chronic inflammatory demyelinating polyneuropathy (CMS/HCC) ([facility]) Take 1 capsule by oral route daily 30 capsule 2 05/19/20 23 Active Incruse Ellipta 62.5 MCG/ACT aerosol powderIndications :Chronic obstructive pulmonary disease, unspecified COPD type (CMS/HCC) ([facility]) INHALE ONE PUFF BY MOUTH EVERY MORNING 30 each 3 01/18/20 24 Active terbinafine (LamISIL AT) 1 % creamIndications: Tinea cruris Apply topically 2 times daily. 15 g 1 12/29/19 25 Active allopurinol (Zyloprim) 300 MG tabletIndications :Gout, unspecified cause, unspecified chronicity, unspecified site TAKE ONE TABLET BY MOUTH EVERY DAY 90 tablet 1 02/26/20 25 Active verapamil SR (Calan SR) 240 MG ER tabletIndications :Benign hypertension TAKE ONE TABLET BY MOUTH EVERY MORNING WITH FOOD 90 tablet 1 05/20/20 25 Active atorvastatin (Lipitor) 40 MG tabletIndications :Mixed hyperlipidemia TAKE 1 TABLET BY MOUTH NIGHTLY AT BEDTIME 90 tablet 06/12/20 25 Active lisinopril-hydroC HLOROthiazide 10-12.5 MG tablet TAKE ONE TABLET BY MOUTH EVERY MORNING 90 tablet 1 07/08/20 25 Active fluticasone (Flonase) 50 MCG/ACT nasal sprayIndications: Shortness of breath ADMINISTER 2 SPRAYS TO EACH NOSTRIL ONCE DAILY NEEDED FOR ALLERGIES AND NASAL CONGESTION 16 g 09/02/20 25 Active predniSONE (Deltasone) 20 MG tabletIndications :Chronic obstructive pulmonary disease, unspecified COPD type (CMS/HCC) (HCC) Take 2 tablets (40 mg) by mouth Once per day for 5 days. 10 tablet 09/09/20 25 2024 Active azithromycin (Zithromax) 500 MG tabletIndications :Chronic obstructive pulmonary disease, unspecified COPD type (CMS/HCC) (HCC) Take 1 tablet (500 mg) by mouth Once per day for 3 days. 3 tablet 09/09/20 25 2024 Active fluticasone (Flonase) 50 MCG/ACT nasal sprayIndications: Shortness of breath ADMINISTER 2 SPRAYS TO EACH NOSTRIL ONCE DAILY NEEDED FOR ALLERGIES AND NASAL CONGESTION 16 g 08/02/20 25 2024 Discontinued Active Problems Problem Noted Date Diagnosed Date Class 1 obesity 12/07/2023 Drug-induced erectile dysfunction 12/07/2023 Chronic back pain 02/06/2023 Overview (02/06/2023): cervical disc herniation; chronic LBP with lumbar [...] above. 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 Vapes, smokes marijuana. Incruse ellipta once daily Advair b.i.d Albuterol PRN 03/2023-Has initial visit with [facility] pulmon[facility]. Per visit note pt with COPD s/t marijuana use. Plan to continue incruse ellipta and advair. Discontinued combivent and flovent. Assessment & Plan (12/08/2023 11:48 AM EST): Pt is doing well Continue Spiriva, use it on the morning of the surgery Assessment & Plan (06/09/2023 9:53 PM EDT): Follow up as scheduled with pulmonology Pt reports needing PA for incruse since insurance change. Will initiate PA Assessment & Plan (02/06/2023 4:51 PM EDT): Spoke with pharmacy. Insurance will cover Incruse instead of spiriva START once daily incruse Continue albuterol PRN Chronic inflammatory demyelinating polyneuropath y (CMS/HCC) 12/29/2022 Overview (08/27/2023): EMG from 2018 with the following result: Diffuse sensory-motor axonal and demyelinative peripheral neuropathy in the lower extremities.EMG of the right L4-S1 innervated muscles consistent with chronic distal neuropathic changes. 03/2023- Saw [facility] vascular. Per visit note negative venous ultrasound. Etiology of polyneuropathy unclear B12, folate, magnesium WNL 12/2022 Did not tolerate amitriptyline or gabapentin (worsened anxiety) Assessment & Plan (10/14/2023 7:04 AM EST): Referred to neurology 08/2023 Assessment & Plan (08/27/2023 1:31 PM EST): Etiology unclear. Foot abnormalities increase concern for systemic disease. ?[id number], ?gammopathy, ?autoimmune dysfunction Will order additional labs and refer to neurology Foot xrays and STAT referral to podiatry for hammer toe Assessment & Plan (06/09/2023 9:54 PM EDT): STOP amitryptiline (s/e) START daily alpha lipoic acid 600mg Reviewed administration, risks, side effects Encouraged daily compression stockings Follow up as scheduled with vascular Assessment [...] herniation 02/14/2017 Benign hypertension 02/14/2017 Overview (02/06/2023): Lisinopril 20mg/Hctz 25mg Verapamil 240mg ER Well controlled Maintenance: BMP: 11/2022 Lipid Panel: [...] Assessment & Plan (06/09/2023 9:52 PM EDT): Well controlled Continue current regimen QT prolongation borderline c/w methadone use. Pt plans to taper off methadone and will discuss with methadone clinic at upcoming appointment Assessment & Plan (02/06/2023 4:36 PM EDT): Well controlled Continue current regimen Gout 02/14/2017 Overview (02/06/2023): Allopurinol for prevention Resolved Problems Problem Noted [...] Encounters Date Type Department Care Team Description 09/09/2025 10:30 AM EST Office Visit [facility] [address] [place] [phone] [place], [place], [facility] Chronic obstructive pulmonary disease, unspecified COPD type (CMS/HCC) (HCC) (Primary Dx) 09/09/2025 Travel 09/04/2025 Telephone [facility] Madeleine [facility] [place] [address] Nyasia Baum FNP chart prep 09/02/2025 Refill [facility] [place] [address] Alexandria Bernard MD Shortness of breath 08/27/2025 Patient Outreach [facility] [address] [facility] [place] [address] Nyaisa Baum FNP Pre-visit Planning (SDOH screening completed on 12/20/2024) 07/31/2025 Refill [facility] Madeleine [facility] [place] [address] Nyasia Baum FNP Shortness of breath 07/25/2025 Telephone [facility] Madeleine [facility] [place] [address] Nyasia Baum FNP dec recall 07/08/2025 Refill [facility] Madeleine [facility] [place] [address] Nyasia Baum FNP 07/05/2025 9:15 AM EDT Office Visit [facility] Madeleien [facility] [place] [address] Nyasia Baum FNP Primary hypertension (Primary Dx); Chronic obstructive pulmonary disease, unspecified COPD type (CMS/[facility]); Obstructive sleep apnea syndrome; Encounter for immunization; Uncomplicated opioid dependence (CMS/HCC) 07/05/2025 Travel 07/04/2025 Telephone [facility] Madeleine [facility] [place] [address] Nyasia Baum FNP Chart prep 07/01/2025 Refill [facility] Madeleine [facility] [place] [address] Nyasia Baum FNP Shortness of breath 06/11/2025 2:00 PM EDT Office Visit [place] [facility] [address] [place] [address] Giuseppe Zapien LLD Tooth abrasion (Primary Dx) 06/10/2025 Refill [facility] [address] [facility] [place] [address] Abigail Tran, DO Mixed hyperlipidemia from Last 3 Months Immunizations Immunization Administration Dates Next Due Influenza Injectable Quadriv alant Preservative Free IIV4 MDCK 07/01/2023,07/02/2022,06/21/2021,07/11,06/29/2018 Influenza injectable quadriv alent preservative free 06/07/2020,06/20/2017 Influenza, IIV3, injectable 08/12/2016, 5,09/27/2014 Influenza, Injectable, MDCK, preservative free 07/23/2015 Influenza, seasonal, injecta ble, preservative free 07/05/2025,06/29/2024 Pfizer Covid-19 Vaccine 12+ 06/29/2024 Pneumococcal Conjugate [...] 20 09/09/2025 10:33 AM EST Oxygen Saturation 97% 12/28/2024 9:36 AM EDT Inhaled Oxygen Concentration - - Weight 103 kg (227 lb 9.6 oz) 09/09/2025 10:33 A M EST Height 177.8 cm (5' 10 ) 09/09/2025 10:33 AM EST Body Mass Index 32.66 09/09/2025 10:33 AM EST Plan of Treatment Upcoming Encounters Date Type Department Care Team (Late st Contact Info) Description 11/26/2025 8:30 AM EST Office Visit [facility] [address] [place] [address] Nika Coreas Health Maintenance Due Date Last Done Comments CT Colonography 1960 FIT DNA/Cologuard 1960 FIT 1960 FOBT 1960 Sigmoidoscopy 1960 Alcohol/Substance Use Screening 1974 Dental X-Ray: Full Mouth 02/09/2025 02/08/2022, 04/06/2015 Dental Oral Exam 11/22/2025 05/21/2025, , 02/08/2022, Additional history exists Dental Prophylaxis 11/22/2025 05/21/2025, 0 03/27/2024, 08/29/2023, Additional history exists SDOH Screening 12/20/2025 12/20/2024 Dental X-Ray: Bitewings 05/22/2026 05/21/20 25, 08/29/2023, 02/08/2022, Additional history exists Depression Screening 09/09/2026 09/09/2025, 09/09/20 Disability Screening 09/09/2026 09/09/2025 Tobacco Screening 09/09/2026 09/09/2025 Lipid Panel 04/30/2030 04/30/2025, 11/10, 02/12/2021 DTaP/Tdap/Td Vaccines (3 - Td or Tdap) 08/05/2031 08/05/2021, 09/17/2015 Colonoscopy 01/08/2034 01/09/2024, 01/29/2015 Colorectal Cancer Screening 01/08/2034 Zoster Vaccines Completed 12/07/2019, 09/19/2019 HIV Screening Completed 11/22/2022 Hepatitis C Screening Completed 11/22/2022, 023 Pneumococcal Vaccine: 50+ Years Completed 05/19/2023, 06/20/2017, 01/28/2016 RSV Patients and Patients Aged 60 years or older Completed 09/25/2023 Influenza Vaccine Completed 07/05/2025, , 07/01/2023, Additional history exists COVID-19 Vaccine Completed 07/06/2025, , 07/01/2023, Additional history exists HIB Vaccines Aged Out [...] patient's age to complete this topic Meningococcal B Vaccine Aged Out No l onger eligible based on patient's age to complete [...] pulmonary disease, unspecified COPD type (CMS/HCC) (HCC) 10 F RESIN-BASED COMPOSITE - 1 SURF, ANTERIOR Routine 06/11/2025 2:00 PM EDT 11 F RESIN-BASED COMPOSITE - 1 SURF, ANTERIOR Routine 06/11/2025 2:00 PM EDT 12 B(V) RESIN-BASED COMPOSITE - 1 SURF, POSTERIOR Routine 06/11/2025 2:00 PM EDT Tooth abrasion 13 B(V) RESIN-BASED COMPOSITE - 1 SURF, POSTERIOR Routine 06/11/2025 2:00 PM EDT Tooth abrasion Full PROPHYLAXIS - ADULT Routine 05/21/2025 10:10 AM EDT BITEWINGS - 4 RADIOGRAPHIC IMAGES Routine 05/21/2025 10:10 AM EDT PERIODIC ORAL EVALUATION - ESTABLISHED PATIENT Routine 05/21/2025 10:10 AM EDT LIPID PANEL, STANDARD Routine 04/30/2025 9:18 AM EDT Primary hypertension HM COLONOSCOPY Routine 01/09/2024 HEPATITIS C AB W/REFL TO HCV RNA, QN, PCR Routine 11/22/2022 8:53 AM EST Routine health maintenance HIV 1 RNA, QN PCR W/RFL JANI (RTI,PI,INTEGRASE) Routine 11/22/2022 8:53 AM EST Routine health maintenance INTRAORAL - COMPLETE SERIES OF RADIOGRAPHIC IMAGES Routine 02/08/2022 12:00 AM EDT from Last 3 Months or Most Recently Relevant to Health Maintenance Results * XR Chest 2 Views (09/09/2025 12:02 PM EST) Anatomical Region Laterality Modality Chest Radiographic Jill ging 09/09/2025 12:0 2 PM EST Narrative 09/09/2025 12:52 PM EST [facility] [address] [place] [address] XRay Report Signed Patient: Victor Manuel Jay MR#: [id number] : 1960 Acct:[id number] Age/Sex: 64 / M ADM Date: 09/09/25 Loc: [facility] Attending Dr: Nyasia DELGADO Ordering Physician: Nyasia Baum Date of Service: 09/09/25 Procedure(s): XR chest 2V Accession Number(s): [id number] cc: Nyasia Baum Reason for Exam: COPD exacerbation. R/o consolidation [...] 09/09/25 1249 DD/ 1202 TD/TT: 09/09/25 1204 Dredge Pumper: Procedure Note Donotuseinterpreter, Image - 09/09/2025 [facility] [address] [place] [address] XRay Report Signed Patient: Victor Manuel JayMR#: [id number] : 1960cct:[id number] Age/Sex: 64 / MADM Date: 09/09/25 Loc: [facility] Attending Dr: Nyasia DELGADO Ordering Physician: Nyasia Baum Date of Service: 09/09/25 Procedure(s): XR chest 2V Accession Number(s): [id number] cc: [facility] Reason for Exam: COPD exacerbation. R/o consolidation [...] by: Beny Brush MD 09/09/2025 12:49 PM [facility] Dictated By: Beny Brush MD Signed By: <Electronically signed by Beny Brush MD in OV> 09/09/25 1249 DD/ 1202 TD/TT: 09/09/25 1204 Dredge Pumper: [facility] IMG XR PROCEDURES Edited Resu lt - Final * Lipid Panel, Standard (04/30/2025 9:18 AM EDT) Triglycerides 97 <150 mg/dL [facility] Comment:Desirable Triglyceri de: less than 150 mg/dLBorderline High Triglyceride 150-199 mg/dLHigh Triglyceride: 200-499 mg/dLVery High Triglyceride: greater than or equal to 5OO mg/dL Cholesterol 141 <200 mg/dL [facility] Comment:Desirable Cholestero l: less than 200 mg/dLBorderline High Cholesterol: 200-239 mg/dLHigh Cholesterol: greater than 239 mg/dL LDL Cholesterol Calculated 64 <100 mg/dL [facility] Comment:Desirable LDL: less than 100 mg/dLNear Optimal/Above Optimal LDL: 110- 129 mg/dLBorderline High LDL: 130-159 mg/dLHigh LDL: 160-189 mg/dLVery High LDL: greater than or equal to 190 mg/dL HDL Cholesterol 58 >40 mg/dL [facility] Comment:Desirable HDL: great er than 40 mg/dL Note: This HDL assay may give artificially low results in patients with liver disease. Blood Venous blood specimen / Unknown 04/30/2025 9:18 AM EDT 04/30/2025 11:13 AM EDT [facility] [employer] LAB BLOOD ORDERABLES Final Re sult Performing Organization Address [facility] Co de Phone Number [facility] [address] [place] [address] [phone] * Hm Colonoscopy (01/09/2024) Colonoscopy Normal Normal Comment:negative with 10 yea r follow up 01/09/2024 Historical Provider MD HEALTH MAINTENANCE Final Result * HIV-1 RNA, Quantitative, Real-Time PCR with Reflex to Genotype (RTI, PI, Integrase) (11/22/2022 8:53 AM EST) HIV 1 RNA, QN PCR NOT DETECTED copies/mL [facility], HIV 1 RNA, QN PCR NOT DETECTED Log copies/mL [facility] [email or web address] [facility], Comment: REFERENCE RANGE: NOT DETECTED copies/mL NOT DETECTED Log copies/mL This test was performed using Real-Time Polymerase Chain Reaction. Reportable range is 20 to 10,000,000 copies/mL (1.30-7.00 Log copies/mL). 11/22/2022 8:53 AM EST 11/22/2022 8:53 AM EST Narrative [facility] - 12/02/2022 11:57 PM EST FASTING:YES FASTING: YES Rica Haider FRO[employer]EN ME[employer] CUTTER LAB BLOOD ORDERABLES Final Res ult [facility] [address], [place] [address] [facility], [address] [place] [address] * (ABNORMAL) Hepatitis C Antibody with Reflex to HCV, RNA, Quantitative, Real- Time PCR (11/22/2022 8:53 AM EST) Hepatitis C Antibody BORDERLIN E(A) NON-REACT KELLY [facility] Index 0.95 <1.00 In[facility] Comment: HCV antibody was non-reactive. There is no laboratory evidence of HCV infection. In most cases, no further action is required. However, if recent HCV exposure is suspected, a test for HCV RNA (test code 24650) is suggested. For additional information please refer to http://education.Bitdeli/faq/KIZ24n5 (This link is being provided for informational/ educational purposes only.) Blood Venous blood specimen / Unknown 11/22/2022 8:53 AM EST 11/22/2022 8:53 AM EST Narrative [facility] - 12/02/2022 11:57 PM EST FASTING:YES FASTING: YES Rica Haider [facility] LAB BLOOD ORDERABLES Final Res ult [facility] [address] [facility], [facility], [place] [address] [employer] [place] [employer] [address] [facility], ([address]) [place] [address] from Last 3 Months or Most Recently Relevant to Health Maintenance Insurance A[employer]NA MEDICARE REPLACEMENT DENTAL - AETNA DENTAL AETNA MEDICARE REPLACEMENT [facility] CITIZEN [place] Care Teams Field Investigator Relationship Specialty Start Date End Date Nyasia Baum FNP [address] [place] [phone] PCP - General Family Medicine 09/08/22
--- OUTSIDE RECORDS SUMMARY | 2025-09-09 14:31 | XMS_ITS | Encounter Summary ---
Author Organization [employer] Address [address] [facility] [address] [place] [address] Care Team Providers Care Api Developer Name Role Phone Nyasia Baum [facility] Primary Care Provider Encounter Details Date Type Department Care Team (Latest Contact Info) Description 09/09/2025 Travel Social History Tobacco Use Types Packs/Day Years [...] PM EDT documented as of this encounter Functional Status * Over the past 2 weeks, how often have you been bothered by any of the following problems? Question Answer Date of Assessment Author Patient Health Questionnaire-2 Score 0 09/09/2025 10:39 AM Estephania Collins [place] * Little interest or pleasure in doing things Answer Date of Assessment Author Not at all 09/09/2025 10:39 AM Estephania Hoffmann MA * Feeling down, depressed, or hopeless Answer Date of Assessment Author Not at all 09/09/2025 10:39 AM Estephania Hoffmann MA * Trouble falling or staying asleep, [...] about different things 0 09/09/2025 10:39 AM Estephania Gallo MA Trouble relaxing 0 09/09/2025 10:39 AM Estephania Gallo MA Being so restless that it is hard to sit still 0 09/09/2025 10:39 AM Estephania Gallo MA Becoming easily annoyed or irritable 0 09/09/2025 10:39 AM Estephania Gallo MA Feeling afraid as if something awful might happen 0 09/09/2025 10:39 AM Estephania Tristan MA TRICIA-7 Total Score 0 09/09/2025 10:39 AM Estephania Gallo MA documented as of this encounter Plan of Treatment Upcoming Encounters Date Type Department Care Team (Late st Contact Info) Description 11/26/2025 8:30 AM EST Office Visit [facility] [address] [place] [address] Nika Coreas documented as of this encounter Visit Diagnoses Not on filedocumented in this encounter Additional Health Concerns Assessment Noted Time PHQ-9 Depression Total Score: 0 09/09/20 25 10:39 AM EST documented as of this encounter Care Teams Api Developer Relationship Specialty Start Date End Date Nyasia Baum FNP [address] [place] [id number] PCP - General Family Medicine 09/08/22 documented as of this encounter
== END 2025-09-09 11:05 | disposition home or self-care (01) ==
LOC: HO.HHCX 11:04
PROVIDERS: PCP Registered Nurse; Visit Provider Registered Nurse
DX: J44.1 Chronic obstructive pulmonary disease with (acute) exacerbation (principal)
CPT/HCPCS: 71046

== ENCOUNTER → 2025-09-09 11:31 | Outpatient (BNV) | payer MEDICARE, SELFPAY | PROVIDERS: PCP Registered Nurse; Visit Provider Radiology Diagnostic Radiology | DX: J44.1 Chronic obstructive pulmonary disease with (acute) exacerbation (principal) | CPT/HCPCS: 71046 ==

== ENCOUNTER 2025-09-13 08:43 | Outpatient (REF) | payer MEDICARE, SELFPAY ==
--- NOTE | 2025-09-13 08:53 | PFT_ITS ---
Indication: COPD Spirometry FEV1 to FVC 65%; FEV1 2.91 L; FVC 4.48 L. no significant response to bronchodilators noted. Lung Volumes Total lung capacity 103% predicted; residual volume 105% predicted Diffusion Capacity DLCO 75% predicted Methacholine Challenge [] Flow Volume Loops Obstructive physiology MVV 94% predicted Comparison None Interpretation There is an obstructive ventilatory defect consistent with mild COPD. No significant response to bronchodilators noted. Normal maximum voluntary ventilation. Lung volumes are within normal limits. The patient does have a mild diffusion impairment. Clinical correlation warranted. MTDD
[2025-09-13 09:30] VITALS: PULSE 82
== END 2025-09-13 08:44 | disposition home or self-care (01) ==
LOC: HO.RESP 08:43
PROVIDERS: PCP Registered Nurse; Visit Provider Internal Medicine
DX: G47.31 Primary central sleep apnea (principal); J44.9 Chronic obstructive pulmonary disease, unspecified; R06.09 Other forms of dyspnea; F12.10 Cannabis abuse, uncomplicated
CPT/HCPCS: 94060; 94640; 94727; 94729

== ENCOUNTER → 2025-09-13 08:53 | Outpatient (BNV) | payer MEDICARE, SELFPAY | PROVIDERS: PCP Registered Nurse; Visit Provider Hospitalist | DX: J98.4 Other disorders of lung (principal) | CPT/HCPCS: 94060; 94727; 94729 ==